=== PATIENT | male | born 1960 | race African-American/Black ===

== ENCOUNTER 2020-03-24 09:10 | Inpatient (IN) | payer MEDICARE, MEDICAID, SELFPAY ==
[2020-03-24] VITALS (11 sets, daily range): BP systolic 119–177; BP diastolic 71–89; PULSE 79–95; RESP 12–21; TEMP 35.9–36.9; O2SAT 98–100; BMI 50.3
--- NOTE | ~2020-03-24 | US_ITS ---
EXAMINATION: US carotid duplex BI DATE: 03/25/2020 11:28 INDICATION: Infarct in right temporal occipital region. TECHNIQUE: Grayscale, color Doppler, and pulsed Doppler images of the cervical carotid arteries were obtained. The degree of vessel stenosis is placed in one of the following categories: normal, <50%, 5 0-69%, >=70% but less than near-occlusion, near-occlusion, or total occlusion. Note that percent sten osis relative to normal distal artery lumen diameter is indirectly measured from velocity measurement s as described by Tristan, et al. Radiology 2003; 229:[id number]. COMPARISON: None. FINDINGS: RIGHT: The right common carotid artery (CCA) peak systolic velocity (PSV) is 86 cm/s. The right internal car otid artery (ICA) PSV is 45 cm/s. The right ICA end-diastolic velocity (EDV) is 10 cm/s. The right IC A/CCA PSV ratio is 0.5. Grayscale and color Doppler images yield an estimate of <50% diameter reducti on from plaque in the ICA. There is antegrade flow in the right vertebral artery. LEFT: The left CCA PSV is 83 cm/s. The left ICA PSV is 52 cm/s. The left ICA EDV is 16 cm/s. The left ICA/C CA PSV ratio is 0.6. Grayscale and color Doppler images yield an estimate of <50% diameter reduction from plaque in the ICA. There is antegrade flow in the left vertebral artery. IMPRESSION: 1. <50% stenosis in the right internal carotid artery. 2. <50% stenosis in the left internal carotid artery. Reviewed, dictated and finalized at location A.
--- NOTE | ~2020-03-24 | CT_ITS ---
EXAMINATION: CT brain wo con DATE: 03/24/2020 10:05 INDICATION: Unresponsive. TECHNIQUE: Computed tomography (CT) of the head was performed without intravenous contrast. The mA wa s adjusted according to patient size. Iterative reconstruction technique was employed. The dose-lengt h product was 681.00 mGy-cm. COMPARISON: None FINDINGS: There is an infarct in left thalamus. There is an infarct in right temporal occipital regio n in the expected distribution of right posterior cerebral artery. There is an infarct in the inferio r left cerebellum. There is no intracranial hemorrhage or abnormal mass lesion. The ventricles are no rmal in size. There is mild mucosal thickening in the paranasal sinuses. There is a trace right masto id effusion. The orbits are normal. IMPRESSION: 1. Age-indeterminate infarcts in the left thalamus, right temporal occipital region, and left cerebel lum. Reviewed, dictated and finalized at location A. IMPRESSION: 1. Age-indeterminate infarcts in the left thalamus, right temporal occipital re gion, and left cerebellum.
--- NOTE | ~2020-03-24 | CT_ITS ---
EXAMINATION: CTA brain carotid DATE: 03/29/2020 00:58 INDICATION: Stroke. TECHNIQUE: Computed tomographic angiography (CTA) of the head was performed without and with 100 mL O mnipaque-350 intravenous contrast. CTA of the neck was performed with intravenous contrast. Automated exposure control and iterative reconstruction technique were employed. The dose-length product was 1 926.06 mGy-cm. Maximum intensity projection and volume rendered 3D-reconstructions were created by sylvia serna technologist on a separate workstation. COMPARISON: Head CT 03/24/2020, brain MRI 03/27/2020 FINDINGS: HEAD CTA: There is an infarct in inferior left cerebellum. There is an infarct in right temporal occi pital region. There is an infarct involving the left thalamus and left cerebral peduncle. There is a small infarct in right thalamus. There is no intracranial hemorrhage or abnormal mass lesion. The horacio tricles are normal in size. The orbits are normal. There is mild mucosal thickening in the paranasal sinuses. There is an osteoma in the right ethmoid sinus. There is a small right mastoid effusion. The vertebral arteries are codominant. 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 There is no significant stenosis of basilar artery or the posterior cerebral arteries. There is mild stenosis of the intracranial internal caroti d arteries. There is no significant stenosis of the anterior or middle cerebral arteries. Anterior co mmunicating artery is normal. Right posterior communicating artery is normal. A left posterior commun icating artery is not identified. There is no aneurysm. NECK CTA: There are small pleural effusions. There is a total occlusion of cervical left vertebral ar leighton with intermittent reconstitution. There is plaque in the proximal internal carotid arteries. The re is 0% stenosis of the proximal right internal carotid artery relative to normal distal artery lume n diameter (NASCET criteria). There is 0% stenosis of the proximal left internal carotid artery relat ronald to normal distal artery lumen diameter. There is a left posterior scalp lipoma. There are no path ologically enlarged lymph nodes. There is severe cervical spondylosis. There are chronic compression fractures of T4 and T5. IMPRESSION: 1. Stable subacute infarcts involving the right temporal occipital region, left cerebellum, bilateral thalami, and left cerebral peduncle. 2. Thrombosis of left vertebral artery. 3. 0% stenosis of the proximal internal carotid arteries relative to normal distal artery lumen diame ters (NASCET criteria). Reviewed, dictated and finalized at location A. IMPRESSION: 1. Stable subacute infarcts involving the right temporal occipital region, left cerebellum, bilateral thalami, and left cerebral peduncle. 2. Thrombosis of left vertebral artery. 3. 0% stenosis of the proximal internal carotid arteries relative to normal dis ren artery lumen diameters (NASCET criteria).
--- NOTE | ~2020-03-24 | MR_ITS ---
EXAMINATION: MR brain/brain stem wo con DATE: 03/27/2020 15:01 INDICATION: Altered mental status. TECHNIQUE: Magnetic resonance imaging (MRI) of the brain and brainstem was performed without intraven ous contrast. Sequences included sagittal T1-weighted FSE and axial diffusion-weighted FS EPI. The tammy may was unable to tolerate additional imaging. Apparent diffusion coefficient (ADC) maps were creat ed. COMPARISON: Head CT 03/24/2020 FINDINGS: Motion artifact is noted. There are infarcts involving the right temporal occipital region and inferior left cerebellum. There are infarcts in the thalami, left worse than right. There is no a bnormal mass lesion. The ventricles are normal in size. The mastoid air cells are normal. IMPRESSION: 1. Infarcts involving the right temporal occipital region, inferior left cerebellum, and bilateral th jade, likely subacute. Reviewed, dictated and finalized at location A. IMPRESSION: 1. Infarcts involving the right temporal occipital region, inferior left cerebe llum, and bilateral thalami, likely subacute.
--- NOTE | ~2020-03-24 | XR_ITS ---
EXAMINATION: XR chest 1V portable DATE: 03/24/2020 09:37 INDICATION: Unresponsive. TECHNIQUE: A single frontal view of the chest was obtained. COMPARISON: None. FINDINGS: The chest demonstrates clear lungs without pneumonia, pleural effusion, or pneumothorax. Th e heart size is normal. IMPRESSION: 1. No acute cardiopulmonary disease. Reviewed, dictated and finalized at location A.
--- NOTE | ~2020-03-24 | CT_ITS ---
EXAMINATION: CT brain wo con DATE: 03/29/2020 05:04 INDICATION: Stroke. TECHNIQUE: Computed tomography (CT) of the head was performed without intravenous contrast. The mA wa s adjusted according to patient size. Iterative reconstruction technique was employed. The dose-lengt h product was 681.00 mGy-cm. COMPARISON: Head CT at 12:42 AM, brain MRI 03/27/2020 FINDINGS: There are infarcts involving the right temporal occipital region, thalami, left cerebral pe duncle, and inferior left cerebellum. There are foci in the right temporal occipital infarct that are hyperdense to andujar matter, consistent with hemorrhagic conversion. There is no abnormal mass lesion. The ventricles are normal in size. The orbits are normal. There is a small right mastoid effusion. T here is mild mucosal thickening in the paranasal sinuses. There is an osteoma in right ethmoid sinus. IMPRESSION: 1. Subacute infarct in right temporal occipital region with small foci of hemorrhagic conversion. 2. Stable subacute infarcts involving the left cerebellum, bilateral thalami, and left cerebral pedun elizabeth. Reviewed, dictated and finalized at location A. IMPRESSION: 1. Subacute infarct in right temporal occipital region with small foci of hemor rhagic conversion. 2. Stable subacute infarcts involving the left cerebellum, bilateral thalami, a nd left cerebral peduncle.
--- NOTE | 2020-03-24 09:21 | ECG_ITS ---
Measurements Intervals [place] Rate: 80 P: 41 ME: 190 QRS: -12 QRSD: 89 T: 27 QT: 364 QTc: 422 Interpretive Statements SINUS RHYTHM NORMAL ECG Electronically Signed On 03-24-2020 12:45:41 CDT by Jesse Ni D.O.
[2020-03-24 09:23] LABS: Glucose Point of Care 224 (65-105)
[2020-03-24 09:41] LABS: Alveolar/Arterial O2 Gradient 12.6 mmHg; Base Excess ABG -0.3 mEq/l (+/-2.0); Carboxyhemoglobin 0.3 % THb (0-2.0); Fractional Inspired Oxygen 21 %; HCO3 ABG 25.2 mEq/l (22.0-26.0); Methemoglobin ABG 0.3 %THb (0-1.5); Oxygen Content ABG 18.5 %vol (16.0-22.0); Oxygen Saturation ABG 96.1 % (95.0-100.0); PCO2 ABG 44.2 mmHg (35.0-45.0); PO2 ABG 84.2 mmHg (80.0-100.0); PO2 FiO2 Ratio Arterial Blood 4.01 %; Reduced Hemoglobin 4.4 %THb (0-5.0); Total Hemoglobin 13.8 g/dL (12.0-18.0); pH ABG 7.373 (7.350-7.450)
[2020-03-24 09:42] LABS: Device ROOM AIR; Modified Allen's Test Pass
--- NOTE | 2020-03-24 10:20 | PC.NURSE ---
extractions technician unable to draw blood. Lab is at bedside now.
--- NOTE | 2020-03-24 10:24 | PC.NURSE ---
Pt nurse from [facility] called and stated that she went into pts room this am and found pt unresponsive. She states that she tried sternal rub and painful stimuli and he would not respond. Pts blood sugar registered LOW so 2mg of glucagon was given. Pts blood sugar for EMS was 212 and for this RN blood sugar was 224. Per pts nurse pt is normally A&O but confused. Pt is still not responding for this RN to verbal stimuli but will for sternal rub
[2020-03-24 10:48] LABS: Basophils Percent Auto 0.2 % (0.2-1.2); Eosinophils Absolute Auto 0.1 K/mm3 (0-0.3); Hematocrit 42.7 % (42.0-52.0); Hemoglobin 14.1 g/dL (14.0-18.0); Immature Granulocyte Absolute 0.03 K/mm3 (0.00-0.031); Immature Granulocyte Percent A 0.3 % (0-0.5); Lymphocytes Absolute Auto 2.15 K/mm3 (0.9-3.2); Lymphocytes Percent Auto 22.9 % (18.3-44.2); Mean Corpuscular Hemoglobin 28.6 pg (26-34); Mean Corpuscular Volume 86.6 fl (80-100); Mean Platelet Volume 10.4 fl (7.4-10.4); Monocytes Absolute Auto 0.9 K/mm3 (0.1-0.6); Monocytes Percent Auto 9.3 % (2.6-8.5); Neutrophils Absolute Auto 6.2 K/mm3 (1.3-6.7); Neutrophils Percent Auto 66.3 % (45.5-73.1); Platelet Count Result 205 k/mm3 (150-375); Red Blood Count 4.93 M/mm3 (4.6-6.20); Red Cell Distribution Width 13.8 % (11.5-14.5); White Blood Count 9.4 K/mm3 (4.5-10.0)
[2020-03-24 10:53] LABS: Add Urine Microscopic? YES; Appearance Urine Clear (Clear); Bilirubin Urine Negative (Negative); Blood Urine Negative (Negative); Color Urine Yellow (Yellow); Glucose Urine UA 3+ mg/dL (Negative); Ketones Urine Trace mg/dL (Negative); Leukocyte Esterase Ur Negative LEU/UL (Negative); Mucus Urine Rare /lpf; Nitrate Urine Positive (Negative); Protein Urine Negative (Negative); RBC Urine 0-2 /hpf (0-2); Specific Grav Ur 1.009 (1.001-1.035); Urobilinogen Urine Negative mg/dL (<2.0)
--- NOTE | 2020-03-24 10:57 | PC.NURSE ---
Tried drawing blood on this patient and was unsuccessful
[2020-03-24 11:10] LABS: CRP < 0.5 mg/dL (<1.0)
[2020-03-24 11:10] LABS: Amphetamine Screen Urine Negative (Negative); Barbiturate Screen Urine Negative (Negative); Benzodiazepines Screen Urine Negative (Negative); Cannabinoid Screen Urine Negative (Negative); Cocaine Screen Urine Negative (Negative); Methadone Screen Urine Negative (Negative); Opiate Screen Urine Negative (Negative); Phencyclidine Screen Urine Negative (Negative)
[2020-03-24 11:16] LABS: Troponin I < 0.012 ng/mL (0.000-0.034)
--- NOTE | 2020-03-24 12:08 | ED.GENADULT ---
HPI - General Adult General Chief complaint: Unspecified Stated complaint: period of being unresponsive Time Seen by Provider: 03/24/20 09:16 Source: EMS Mode of arrival: EMS Limitations: altered mental status History of Present Illness HPI narrative: This patient is a 59 year old male with history of DM who presents from [facility] for evaluation of unresponsiveness. PAtient's mother is at bedside, and she states she was told patient was unresponsive this morning. She was told that his blood sugar was low and they were unable to get him to respond. EMS found patient's blood sugar to be 212. The long-term staff gave him glucagon 1 mg before arrival by EMS. Related Data Home Medications Medication Instructions Recorded Confirmed Multi Vitamin 1 tab-cap PO DAILY 03/24/20 03/24/20 acetaminophen [Acetaminophen Extra 1,000 mg PO Q6H PRN 03/24/20 03/24/20 Strength] amlodipine 5 mg PO DAILY 03/24/20 03/24/20 aspirin 81 mg PO DAILY 03/24/20 03/24/20 atorvastatin 20 mg PO DAILY 03/24/20 03/24/20 cholecalciferol (vitamin D3) 5,000 unit PO DAILY 03/24/20 03/24/20 divalproex 1,500 mg PO HS 03/24/20 03/24/20 duloxetine 30 mg PO BID 03/24/20 03/24/20 gabapentin 300 mg PO TID 03/24/20 03/24/20 insulin glargine 40 unit SUBCUT HS 03/24/20 03/24/20 levothyroxine 25 mcg PO DAILY 03/24/20 03/24/20 metformin 500 mg PO BID 03/24/20 03/24/20 metoprolol tartrate 25 mg PO DAILY 03/24/20 03/24/20 nicotine 1 patch TRANSDERMAL DAILY 03/24/20 03/24/20 polyethylene glycol 3350 17 g PO DAILY 03/24/20 03/24/20 risperidone 6 mg PO HS 03/24/20 03/24/20 sennosides-docusate sodium 1 tab-cap PO BID PRN 03/24/20 03/24/20 tiotropium bromide [Spiriva 1 inh INHALATION DAILY 03/24/20 03/24/20 Respimat] trihexyphenidyl 5 mg PO DAILY PRN 03/24/20 03/24/20 Allergies Allergy/AdvReac Type Severity Reaction Status Date / Time lisinopril Allergy Severe Swelling Verified 03/24/20 16:54 Review of Systems Review of Systems: ROS unobtainable: Yes unobtainable due to mental status [facility] Past Medical History Medical History (Updated 03/24/20 @ 18:38 by Fernanda Alford MD) Depression Diabetes mellitus Hyperlipemia Hypertension Seizure Surgical History Surgical History History of left below knee amputation Right above-knee amputee Family History Family History (Updated 03/24/20 @ 17:43 by Sulema Frazier NP) Father Acute myocardial infarction the age of 32 from [place] Mother No problems noted. Social History Social History Smoking status: Former smoker Alcohol intake: never Substance use: never Gender identity (if verbalized by the patient): Male Spiritual care concerns: No Exam Const: General: no acute distress; No diaphoretic Eyes: Other: bilateral pinpoint pupil Chest: Chest palpation & inspection: normal inspection of the chest Resp: Effort & Inspection: normal respiratory effort, no retractions and no use of accessory muscles Auscultation: clear to auscultation bilaterally Cardio: Rate: regular rate Rhythm: regular rhythm Heart sounds: no murmurs GI: GI Palp: Yes Soft to palpation, No Tenderness to palpation present (GI) and No Guarding due to palpation present (GI) Other: mid vertical old surgical scar Skin: General skin exam: normal color Rashes: no rashes Neuro: General: moves all extremities Extrem: Other: right BKA, left AKA Course Consultations Consultation #1: I Discussed case with Sulema Frazier who accepts patient to hospitalist service for evaluation of stroke. Patient's last known normal is unknown. He is not tPA candidate Date: 03/24/20 Time: 13:00 Vital Signs Vital signs: Vital Signs Temperature 96.7 F L 03/24/20 09:22 Pulse Rate 84 03/24/20 09:22 Respiratory Rate 12 03/24/20 09:22 Blood Pressure 160/80 H 03/24/20 09:22 Pulse Oximetry 98 03/24/20 09:22 Temperature
[2020-03-24 12:27] LABS: INR 0.9
[2020-03-24 12:28] LABS: Partial Thromboplastin Time 21.2 SECONDS (22.3-36.8)
[2020-03-24 12:30] LABS: Lactic Acid Reflex 2.2 mmol/L (0.7-2.1)
[2020-03-24 12:34] LABS: Ammonia < 9 umol/L (9-30)
[2020-03-24 12:41] LABS: Magnesium 1.8 mg/dL (1.6-2.3)
[2020-03-24 12:52] LABS: Glucose Point of Care 106 (65-105)
[2020-03-24 12:56] LABS: Ethanol < 10 mg/dL (<10)
[2020-03-24 12:58] LABS: Alanine Aminotransferase 12 U/L (4-50); Albumin Level 3.9 g/dL (3.5-5.1); Alkaline Phosphatase 103 U/L (38-126); Anion Gap 10 mmol/L (8-16); Aspartate Amino Transferase 23 U/L (17-59); Bilirubin,Total 0.5 mg/dL (0.2-1.3); Blood Urea Nitrogen 8 mg/dL (9-20); Carbon Dioxide 27 mmol/L (22-30); Chloride 101 mmol/L (98-107); Estimated CRCL calculation 131 ml/min; Estimated Glomerular Filt Rate > 60; Glucose 144 mg/dL (75-110); Sodium 138 mmol/L (137-145)
[2020-03-24] MEDS: LACTATED RINGERS 1,000 ML 999 ML IV CONT (14:01)
--- NOTE | 2020-03-24 15:10 | PC.NURSE ---
I was told that the hospitalist is enroute to see patient prior to him going up to the floor. I notified the patient's mother and I called Radha on the floor to inform her of the delay in getting the patient the floor. Staff on the floor tells me that patient is now going to room 250.
[2020-03-24 15:17] LABS: Reflex Lactic Acid Yes or No Add Lactic
--- NOTE | 2020-03-24 16:15 | PC.NURSE ---
Hospitalist done with the patient assessment, patient ready to go up to the floor at this time.
--- NOTE | 2020-03-24 16:44 | ADMGEN ---
This patient, Jason Murcia, was admitted to Medical Room 250-. Patient/family oriented to hospital policies and general routines including ID bracelet, bed and alarms, visiting hours, pain management, procedures, bathroom and other care routines, personal items, smoking policy, room service/diet, and visiting hours. Valuables list has been completed. Information on how to activate the Rapid Response Team has been discussed. Patient/Family are encouraged to report perceived risks to care and to ask questions if they do not understand what they are told or what they should do.
--- NOTE | 2020-03-24 16:45 | PC.NURSE ---
While transporting patient to room he began to void and soaked through diaper. When in new room patient was cleaned with and provided with clean linen with the help of the floor nursing informatics specialist.
[2020-03-24] MEDS: SODIUM CHLORIDE 0.9% IV 1,000 ML 125 ML IV CONT (17:11)
[2020-03-24 17:12] LABS: Lactic Acid 1.4 mmol/L (0.7-2.1)
--- NOTE | 2020-03-24 17:25 | PM.IMHP ---
H&P: HPI History of Present Illness Date/Time: 03/24/20 17:25 Chief complaint: altered mental status/possible CVA Narrative: Jason Murcia is a 59 year old male Who comes from [facility]. His mother is a durable power commercial real estate attorney any she is at the bedside. According to his mother the patient is usually awake and talkative. He is an insulin-dependent diabetic type 2. He has a left above the knee amputation and a right [id number] amputation with the right 1 being the last surgery. The patient is wheelchair-bound. He had a prosthesis for his left leg but was never able to master that when his right leg was removed. Typically he is able to move around in the wheelchair and transfer without difficulty. Normally he converses normally according to his mother. His mother was told that he was unresponsive this morning and that his blood sugars were low and they would not able to get him to respond. The EMS found the patient's blood sugar to be 212 after he was given an amp of glucagon prior to the patient being picked up by EMS. According to the mother the patient had been at [facility] last week and had a CT scan but was never able to find out what the results were. The patient typically goes to [facility] but since he was responsive the EMS felt that it was an emergent situation and needed to be taken to the nearest hospital. Head CT today was read as age-indeterminate infarcts in the left thalamus, right temporal occipital region and left cerebellum. It looks like there may be an aspirin [facility]. According to his mother he is a very brittle diabetic. The patient is rolling around in the bed and moaning but is not answering questions for me at this time. Chest x-ray was read as no acute cardiopulmonary disease. I have spent approximately 50 minutes discussing the case with his mother. Date of service 03/24/2020 Review of Systems Review of Systems: All systems reviewed & are unremarkable except as noted in HPI and below Constitutional: Constitutional: Reports as per HPI and Reports no additional constitutional complaints Eyes: Eyes: Reports as per HPI and Reports no additional eye complaints ENT: Reports system reviewed and no additional complaints, except as documented and Reports Normal hearing present Cardiovascular: Cardiovascular: Reports no additional cardiovascular complaints Respiratory: Respiratory: Reports no additional respiratory complaints and Reports no additional respiratory complaints Gastrointestinal: Gastrointestinal: Reports as per HPI and Reports no additional gastrointestinal complaints Musculoskeletal: Musculoskeletal: Reports no additional musculoskeletal complaints Integumentary/Breasts: Skin/Breast: Reports system reviewed and no additional complaints, except as docu and Reports as per HPI Neurologic: Reports system reviewed and no additional complaints, except as documented, Reports as per HPI and Reports Normal hearing present Psychiatric: Psychiatric: Reports no additional psychiatric complaints and Reports as per HPI Endocrine: Endocrine: Reports no additional endocrine complaints Hematologic/Lymphatic: Hematologic/Lymphatic: Reports no additional hematologic/lymphatic complaints Allergic/Immunologic: Allergic/Immunologic: Reports no additional allergic/immunologic complaints [facility] Past Medical History Medical History (Updated 03/24/20 @ 17:54 by Sulema Frazier NP) Depression Diabetes mellitus Hyperlipemia Hypertension Seizure Surgical History Surgical History History of left below knee amputation Right above-knee amputee Family History Family History (Updated 03/24/20 @ 17:42 by Sulema Frazier NP) Father Acute myocardial infarction the age of 32 from [place] Mother No problems noted. Social History Social History Smoking s
[2020-03-24] MEDS: ASPIRIN 300 MG SUPPOSITORY RECTAL (18:18)
[2020-03-24 18:23] LABS: Valproic Acid 70.5 ug/mL (50-120)
[2020-03-24 18:57] LABS: Glucose Point of Care 95 (65-105)
[2020-03-25] VITALS (8 sets, daily range): BP systolic 149–157; BP diastolic 63–80; PULSE 64–102; RESP 16–21; TEMP 36.3–36.8; O2SAT 98–100
[2020-03-25 00:03] LABS: Glucose Point of Care 80 (65-105)
[2020-03-25] MEDS: SODIUM CHLORIDE 0.9% IV 1,000 ML 125 ML IV CONT ×2 (01:22→09:10)
[2020-03-25 05:46] LABS: Basophils Percent Auto 0.3 % (0.2-1.2); Eosinophils Absolute Auto 0.1 K/mm3 (0-0.3); Eosinophils Percent Auto 0.8 % (0-4.4); Hematocrit 36.8 % (42.0-52.0); Hemoglobin 12.4 g/dL (14.0-18.0); Immature Granulocyte Absolute 0.02 K/mm3 (0.00-0.031); Immature Granulocyte Percent A 0.3 % (0-0.5); Lymphocytes Absolute Auto 2.14 K/mm3 (0.9-3.2); Lymphocytes Percent Auto 29.9 % (18.3-44.2); Mean Corpuscular HGB Conc 33.7 g/dl (32-36); Mean Corpuscular Hemoglobin 28.8 pg (26-34); Mean Corpuscular Volume 85.4 fl (80-100); Mean Platelet Volume 9.3 fl (7.4-10.4); Monocytes Absolute Auto 0.8 K/mm3 (0.1-0.6); Monocytes Percent Auto 10.8 % (2.6-8.5); Neutrophils Absolute Auto 4.2 K/mm3 (1.3-6.7); Neutrophils Percent Auto 57.9 % (45.5-73.1); Platelet Count Result 264 k/mm3 (150-375); Red Blood Count 4.31 M/mm3 (4.6-6.20); Red Cell Distribution Width 13.5 % (11.5-14.5); White Blood Count 7.2 K/mm3 (4.5-10.0)
[2020-03-25 05:50] LABS: Glucose Point of Care 107 (65-105)
[2020-03-25 06:02] LABS: Alanine Aminotransferase 10 U/L (4-50); Albumin Level 3.2 g/dL (3.5-5.1); Alkaline Phosphatase 87 U/L (38-126); Anion Gap 6 mmol/L (8-16); Aspartate Amino Transferase 20 U/L (17-59); Bilirubin,Total 0.4 mg/dL (0.2-1.3); Blood Urea Nitrogen 6 mg/dL (9-20); Calcium 8.3 mg/dL (8.4-10.2); Carbon Dioxide 27 mmol/L (22-30); Chloride 104 mmol/L (98-107); Estimated Glomerular Filt Rate > 60; Glucose 90 mg/dL (75-110); Potassium 3.3 mmol/L (3.4-5.0); Sodium 137 mmol/L (137-145)
--- NOTE | 2020-03-25 08:41 | PCSTNOTE ---
Speech Therapy attempted to see this pt for a Modified Barium Swallow. The pt was unconscious and not medically appropriate for evaluation this date. Consider ordering MBS when pt condition improves.
--- NOTE | 2020-03-25 11:56 | PCOTNOTE ---
Attempted OT evaluation. Nursing reports pt is in MRI for testing at this time. Will continue to attempt.
[2020-03-25 12:42] LABS: Glucose Point of Care 90 (65-105)
--- NOTE | 2020-03-25 13:23 | PCPTNOTE ---
patient deferred for today by nursing...patient is sedated...he is not following commands or directions, and nursing recommended that therapy try tomorrow
--- NOTE | 2020-03-25 14:23 | WPDNEURCNPN ---
Assessment and Plan Assessment and plan (1) Altered mental status: Code(s): R41.82 - Altered mental status, unspecified Status: Acute (2) Seizure: Code(s): R56.9 - Unspecified convulsions Status: Chronic (3) Depression: Code(s): F32.9 - Major depressive disorder, single episode, unspecified Status: Acute (4) Hypertension: Code(s): I10 - Essential (primary) hypertension Status: Chronic (5) Diabetes mellitus: Code(s): E11.9 - Type 2 diabetes mellitus without complications Status: Chronic (6) Hyperlipemia: Code(s): E78.5 - Hyperlipidemia, unspecified Status: Chronic Additional Plan likely new stroke history of underlying diabetic vascular disease and history of bilateral amputation plan is to continue the medication as such Consult date: 03/25/20 Time Seen: 14:00 HPI: Jason Murcia is a 59 year old male admitted to the hospital on transfer from the skilled nursing in addition to diagnosis of insulin dependent diabetes mellitus, bilateral [id number] amputation Cantu chair bound with history of prosthesis for his left lower extremity which he was never able to master typically is able to move around in the wheelchair and transfer without difficulties on the day of admission he was unresponsive blood sugars were low he had been at [facility] last week and even at that time CT scan of the head was negative the CT of the head today revealed left thalamus and right temporal occipital and left cerebellar infarct patient had been on aspirin but definitely he is very brittle diabetic Review of Systems Review of Systems: Narrative: review of systems are unremarkable except as documented he does carry the diagnosis of depression as well with seizure disorder [facility] Past Medical History Medical History (Updated 03/24/20 @ 18:38 by Fernanda Alford MD) Depression Diabetes mellitus Hyperlipemia Hypertension Seizure Surgical History Surgical History History of left below knee amputation Right above-knee amputee Family History Family History (Updated 03/24/20 @ 19:57 by Amanda Carlisle RN) Father Acute myocardial infarction the age of 32 from [place] Mother Osteoporosis Grandparent Diabetes mellitus Social History Social History Smoking status: Former smoker Alcohol intake: never Substance use: never Gender identity (if verbalized by the patient): Male Spiritual care concerns: No Meds Home Medications and Allergies Home Medications Medication Instructions Recorded Confirmed Type Multi Vitamin 1 tab-cap PO DAILY 03/24/20 03/24/20 History acetaminophen [Acetaminophen Extra 1,000 mg PO Q6H PRN 03/24/20 03/24/20 History Strength] amlodipine 5 mg PO DAILY 03/24/20 03/24/20 History aspirin 81 mg PO DAILY 03/24/20 03/24/20 History atorvastatin 20 mg PO DAILY 03/24/20 03/24/20 History cholecalciferol (vitamin D3) 5,000 unit PO DAILY 03/24/20 03/24/20 History divalproex 1,500 mg PO HS 03/24/20 03/24/20 History duloxetine 30 mg PO BID 03/24/20 03/24/20 History gabapentin 300 mg PO TID 03/24/20 03/24/20 History insulin glargine 40 unit SUBCUT HS 03/24/20 03/24/20 History levothyroxine 25 mcg PO DAILY 03/24/20 03/24/20 History metformin 500 mg PO BID 03/24/20 03/24/20 History metoprolol tartrate 25 mg PO DAILY 03/24/20 03/24/20 History nicotine 1 patch TRANSDERMAL DAILY 03/24/20 03/24/20 History polyethylene glycol 3350 17 g PO DAILY 03/24/20 03/24/20 History risperidone 6 mg PO HS 03/24/20 03/24/20 History sennosides-docusate sodium 1 tab-cap PO BID PRN 03/24/20 03/24/20 History tiotropium bromide [Spiriva 1 inh INHALATION DAILY 03/24/20 03/24/20 History Respimat] trihexyphenidyl 5 mg PO DAILY PRN 03/24/20 03/24/20 History Allergies Allergy/AdvReac Type Severity Reaction Status Date / Time lisinopril Allergy Severe Swelling Verified 03/24/20
--- NOTE | 2020-03-25 14:56 | P.PNIM_ITS ---
Progress Note: A&P Assessment and Plan (1) CVA (cerebral vascular accident): Qualifiers: CVA mechanism: unspecified Qualified Code(s): I63.9 - Cerebral infarction, unspecified Code(s): I63.9 - Cerebral infarction, unspecified Status: Acute Assessment and Plan: * Patient presents from intermediate due to decreased responsiveness. He is awake and moans in response to questions but not verbalizing. * CT brain showed age-indeterminate infarcts in the left thalamus, right temporal occipital region, and left cerebellum. * He recently was at [facility] and reportedly had CT and MRI at that [facility]. Requested records from [facility] and awaiting these today. * MRI has been ordered. I am told the patient has a lower extremity stent and MRI cannot be performed until records arrive from [place] regarding his stent. Carotid dopplers are normal. Echocardiogram tomorrow. * He will not be able to take oral medications in this cognitive state for now. ASA given rectally. * Neurology consulted - appreciate recommendations. 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 Hold insulin. Not eating. Adjust treatment as needed. (3) Hyperlipemia: Qualifiers: Hyperlipidemia type: unspecified Qualified Code(s): E78.5 - Hyperlipidemia, unspecified Code(s): E78.5 - Hyperlipidemia, unspecified Status: Chronic Assessment and Plan: * Will resume statin therapy once he is able to take oral medications. (4) Depression: Qualifiers: Depression Type: unspecified Qualified Code(s): F32.9 - Major depressive disorder, single episode, unspecified Code(s): F32.9 - Major depressive disorder, single episode, unspecified Status: Acute Assessment and Plan: * Continue with his home medications when able. (5) Hypertension: Qualifiers: Hypertension type: essential hypertension Qualified Code(s): I10 - E ssential (primary) hypertension Code(s): I10 - Essential (primary) hypertension Status: Chronic Assessment and Plan: * BP stable, last 149/80. Allow for permissive hypertension overnight in the setting of acute vs. subacute CVA. * Monitor BP and adjust treatment as needed. (6) Acute UTI: Code(s): N39.0 - Urinary tract infection, site not specified Status: Acute Assessment and Plan: * Urine culture growing > 100,000 E coli. Start IV ceftriaxone. Unsure if this is contributing to his mental status. Monitor urine output and vital signs. Additional Plan * Left BKA; right AKA. Subjective Date/time seen: 03/25/20 1315 Interval history: Mr. Murcia is a 59yo M admitted from the intermediate due to unresponsiveness. Patient is awake and moans in response to each question asked, but will not open his eyes or talk to me. Reportedly he is normally A&Ox3. Review of Systems Review
--- NOTE | 2020-03-25 14:56 | PM.IMPN ---
Progress Note: A&P Assessment and Plan (1) CVA (cerebral vascular accident): Qualifiers: CVA mechanism: unspecified Qualified Code(s): I63.9 - Cerebral infarction, unspecified Code(s): I63.9 - Cerebral infarction, unspecified Status: Acute Assessment and Plan: Patient presents from group home due to decreased responsiveness. He is awake and moans in response to questions but not verbalizing. CT brain showed age-indeterminate infarcts in the left thalamus, right temporal occipital region, and left cerebellum. He recently was at [facility] and reportedly had CT and MRI at that time. Requested records from [facility] and awaiting these today. MRI has been ordered. I am told the patient has a lower extremity stent and MRI cannot be performed until records arrive from [place] regarding his stent. Carotid dopplers are normal. Echocardiogram tomorrow. He will not be able to take oral medications in this cognitive state for now. ASA given rectally. Neurology consulted - appreciate recommendations. (2) Diabetes mellitus: Qualifiers: Diabetes mellitus type: type 2 Diabetes mellitus fpc insulin use: with fpc use Diabetes mellitus complication status: with other specified complication Qualified Code(s): E11.69 - Type 2 diabetes mellitus with other specified complication; Z79.4 - care home (current) use of insulin Code(s): E11.9 - Type 2 diabetes mellitus without complications Status: Chronic Assessment and Plan: Continue to monitor with q6hr accu-cheks. Hold insulin. Not eating. Adjust treatment as needed. (3) Hyperlipemia: Qualifiers: Hyperlipidemia type: unspecified Qualified Code(s): E78.5 - Hyperlipidemia, unspecified Code(s): E78.5 - Hyperlipidemia, unspecified Status: Chronic Assessment and Plan: Will resume statin therapy once he is able to take oral medications. (4) Depression: Qualifiers: Depression Type: unspecified Qualified Code(s): F32.9 - Major depressive disorder, single episode, unspecified Code(s): F32.9 - Major depressive disorder, single episode, unspecified Status: Acute Assessment and Plan: Continue with his home medications when able. (5) Hypertension: Qualifiers: Hypertension type: essential hypertension Qualified Code(s): I10 - Essential (primary) hypertension Code(s): I10 - Essential (primary) hypertension Status: Chronic Assessment and Plan: BP stable, last 149/80. Allow for permissive hypertension overnight in the setting of acute vs. subacute CVA. Monitor BP and adjust treatment as needed. (6) Acute UTI: Code(s): N39.0 - Urinary tract infection, site not specified Status: Acute Assessment and Plan: Urine culture growing > 100,000 E coli. Start IV ceftriaxone. Unsure if this is contributing to his mental status. Monitor urine output and vital signs. Additional Plan Left BKA; right AKA. Subjective Date/time seen: 03/25/20 1315 Interval history: Mr. Murcia is a 59yo M admitted from the group home due to unresponsiveness. Patient is awake and moans in response to each question asked, but will not open his eyes or talk to me. Reportedly he is normally A&Ox3. Review of Systems Review of Systems: Narrative: Twelve systems were reviewed with pertinent positives and negatives as per HPI. Exam Narrative: Exam Narrative: General: Male resting supine in bed in no acute distress. Neuro: Patient moans yes and no to many questions asked. When asked an open-ended question, he does not respond. He does squeeze my fingers with both hands when asked and follow
[2020-03-25 18:06] LABS: Glucose Point of Care 88 (65-105)
[2020-03-26] VITALS (10 sets, daily range): BP systolic 132–159; BP diastolic 69–91; PULSE 56–92; RESP 16–22; TEMP 36–36.7; O2SAT 98–100
--- NOTE | 2020-03-26 | ECHO_ITS ---
Patient Info Name: Jason Murcia Age: 59 years : 1960 Gender: Male Ht: 50 in Wt: 179 lbs BSA: 1.76 m2 HR: 74 bpm BP: 159 / 91 mmHg Heart Rhythm: Sinus Rhythm Technical Quality: Good Exam Date: 03/26/2020 2:29 PM Exam Location: [facility] Patient Status: Inpatient Admit Date: 03/24/2020 Staff Ordering Physician: Radha Heart PA-C Customer Operations Representative: Hudson Shannon, LUCRETIA, RT Attending Provider: Everardo Valencia MD Exam Type: CA echo dop bubble study w con Study Info Indications I63.219 - Cerebral infarction due to unspecified occlusion or stenosis of unspecified vertebral arteries Complete two-dimensional, color flow and Doppler transthoracic echocardiogram is performed with contrast to opacify the left ventricle and to improve the deliniation of the left ventricle endocardial borders. Complete two-dimensional, color flow and Doppler transthoracic echocardiogram is performed with agitated saline. Summary 1. Technically difficult study. 2. There is moderately increased left ventricular wall thickness. 3. Left ventricular systolic function is normal, estimated at 60-65%. 4. The left ventricular diastolic function is grade I diastolic dysfunction. 5. Unable to estimate PA systolic pressures due to poor visualization of tricuspid regurgitant jet velocity. 6. Consider transesophageal echocardiogram if clinically indicated. 7. No observed intracardiac shunt at the atrial level with injection of agitated saline with and without Valsalva. Left Ventricle Left ventricular chamber dimension is normal. Left ventricular systolic function is normal, estimated at 60-65%. There is moderately increased left ventricular wall thickness. The left ventricular diastolic function is grade I diastolic dysfunction. Technically difficult study. Right Ventricle Right ventricular chamber dimension is normal. Right ventricular systolic function is reduced. Left Atria Left atrial chamber dimension is normal. Right Atria Right atrial chamber dimension is normal. Aortic Valve The aortic valve is not well visualized. There is no aortic valve stenosis. There is no aortic valve regurgitation. Pulmonic Valve The pulmonic valve is not well visualized. Mitral Valve The mitral valve has normal leaflets. There is trace mitral valve regurgitation. Tricuspid Valve The tricuspid valve leaflets are not well visualized. Unable to estimate PA systolic pressures due to poor visualization of tricuspid regurgitant jet velocity. Pericardium/Pleural The pericardium appears not well visualized. Inferior Vena Cava Normal inferior vena cava with >50% collapse upon inspiration consistent with normal right atrial pressure, 5 mmHg. Aorta The aortic root size at the sinus of Valsalva is normal. Left Ventricular Outflow Tract Name Value Normal LVOT 2D LVOT Diameter 2.1 cm LVOT Doppler LVOT Peak Gradient 4 mmHg LVOT Mean Gradient 2 mmHg LVOT VTI 18 cm LVOT VTI/AV VTI Ratio 0.9 LVOT Stroke Volum
[2020-03-26] MEDS: SODIUM CHLORIDE 0.9% IV 1,000 ML 125 ML IV CONT ×2 (00:30→07:36)
[2020-03-26 02:54] LABS: Glucose Point of Care 137 (65-105)
[2020-03-26 05:59] LABS: Basophils Percent Auto 0.3 % (0.2-1.2); Eosinophils Absolute Auto 0.1 K/mm3 (0-0.3); Eosinophils Percent Auto 1.1 % (0-4.4); Hematocrit 37.9 % (42.0-52.0); Hemoglobin 12.5 g/dL (14.0-18.0); Immature Granulocyte Absolute 0.01 K/mm3 (0.00-0.031); Immature Granulocyte Percent A 0.2 % (0-0.5); Lymphocytes Absolute Auto 2.11 K/mm3 (0.9-3.2); Lymphocytes Percent Auto 34.1 % (18.3-44.2); Mean Corpuscular Hemoglobin 28.2 pg (26-34); Mean Corpuscular Volume 85.4 fl (80-100); Mean Platelet Volume 9.5 fl (7.4-10.4); Monocytes Absolute Auto 0.7 K/mm3 (0.1-0.6); Neutrophils Absolute Auto 3.3 K/mm3 (1.3-6.7); Neutrophils Percent Auto 53.3 % (45.5-73.1); Platelet Count Result 273 k/mm3 (150-375); Red Blood Count 4.44 M/mm3 (4.6-6.20); Red Cell Distribution Width 13.3 % (11.5-14.5); White Blood Count 6.2 K/mm3 (4.5-10.0)
[2020-03-26 06:11] LABS: Anion Gap 6 mmol/L (8-16); Blood Urea Nitrogen 5 mg/dL (9-20); Calcium 8.4 mg/dL (8.4-10.2); Carbon Dioxide 26 mmol/L (22-30); Chloride 103 mmol/L (98-107); Estimated Glomerular Filt Rate > 60; Glucose 110 mg/dL (75-110); Magnesium 1.6 mg/dL (1.6-2.3); Potassium 3.7 mmol/L (3.4-5.0); Sodium 135 mmol/L (137-145)
[2020-03-26 06:59] LABS: Glucose Point of Care 110 (65-105)
[2020-03-26] MEDS: MAGNESIUM SULF 2 GM/WATER 50ML 2 GM/50 ML BAG IVPB (09:04)
--- NOTE | 2020-03-26 09:45 | PCPTNOTE ---
Attempted PT evaluation. Pt unarousable and unable to participate. Will try again tomorrow.
--- NOTE | 2020-03-26 09:46 | PCOTNOTE ---
OT evaluation attempted this date. patient unarousable at this time. Will attempt OT evaluation at later time.
--- NOTE | 2020-03-26 10:16 | P.PNIM_ITS ---
Progress Note: A&P Assessment and Plan (1) CVA (cerebral vascular accident): Qualifiers: CVA mechanism: unspecified Qualified Code(s): I63.9 - Cerebral infarction, unspecified Code(s): I63.9 - Cerebral infarction, unspecified Status: Acute Assessment and Plan: * Patient presents from snf due to decreased responsiveness. He is awake and moans in response to questions but not verbalizing. * CT brain showed age-indeterminate infarcts in the left thalamus, right temporal occipital region, and left cerebellum. * He recently was at [facility] and reportedly had CT and MRI at that [facility]. Requested records from [facility] and awaiting these today. * MRI has been ordered. I am told the patient has a lower extremity stent and MRI cannot be performed until records arrive from [place] regarding his stent. Carotid dopplers are normal. Echocardiogram ordered. ASA given rectally. * Neurology consulted - appreciate recommendations. (2) Altered mental status: Qualifiers: Altered mental status type: unspecified Qualified Code(s): R41.82 - Altered mental status, unspecified Code(s): R41.82 - Altered mental status, unspecified Status: Acute Assessment and Plan: * At this point it difficult to discern mental status vs. cooperation. He will not speak to me, open his eyes, or take medications but he pulls blanket over his head when I try talking to him. Suspect CVA vs. UTI vs. both could be contributing. Continue antibiotics for UTI and monitor. * Appreciate further recommendations from neurology. (3) Acute UTI: Code(s): N39.0 - Urinary tract infection, site not specified Status: Acute Assessment and Plan: * Urine culture growing > 100,000 E coli. Continue ceftriaxone (day 2). Unsure if this is contributing to his mental status. Monitor urine output and vital signs. (4) Diabetes mellitus: Qualifiers: Diabetes mellitus complication status: with other specified complication Diabetes mellitus [facility] insulin use: with termite exterminator use Diabetes mellitus type: type 2 Qualified Code(s): E11.69 - Type 2 diabetes mellitus with other specified complication; Z79.4 - intermediate designer (current) use of insulin Code(s): E11.9 - Type 2 diabetes mellitus without complications Status: Chronic Assessment and Plan: * Continue to monitor with q6hr accu-cheks. Hold insulin. Not eating. Adjust treatment as needed. (5) Hyperlipemia: Qualifiers: Hyperlipidemia type: unspecified Qualified Code(s): E78.5 - Hyperlipidemia, unspecified Code(s): E78.5 - Hyperlipidemia, unspecified Status: Chronic Assessment and Plan: * Will resume statin therapy once he is able to take oral medications. (6) Depression: Qualifiers: Depression Type: unspecified Qualified Code(s): F32.9 - Major depressive disorder, single episode, unspecified Code(s): F32.9 - Major depressive disorder, single episode, unspecified Status: Acute Assessment and Plan: * Continue with his home medications when able. (7) Hypertension: Qualifiers: Hypertension type: essential hypertension Qualified Code(s): I10 - Essential (primary) hypertension Code(s): I10 - Essential (primary) hypertension Status: Chronic Assessment and P
--- NOTE | 2020-03-26 10:16 | PM.IMPN ---
Progress Note: A&P Assessment and Plan (1) CVA (cerebral vascular accident): Qualifiers: CVA mechanism: unspecified Qualified Code(s): I63.9 - Cerebral infarction, unspecified Code(s): I63.9 - Cerebral infarction, unspecified Status: Acute Assessment and Plan: Patient presents from half-way due to decreased responsiveness. He is awake and moans in response to questions but not verbalizing. CT brain showed age-indeterminate infarcts in the left thalamus, right temporal occipital region, and left cerebellum. He recently was at [facility] and reportedly had CT and MRI at that time. Requested records from [facility] and awaiting these today. MRI has been ordered. I am told the patient has a lower extremity stent and MRI cannot be performed until records arrive from [place] regarding his stent. Carotid dopplers are normal. Echocardiogram ordered. ASA given rectally. Neurology consulted - appreciate recommendations. (2) Altered mental status: Qualifiers: Altered mental status type: unspecified Qualified Code(s): R41.82 - Altered mental status, unspecified Code(s): R41.82 - Altered mental status, unspecified Status: Acute Assessment and Plan: At this point it difficult to discern mental status vs. cooperation. He will not speak to me, open his eyes, or take medications but he pulls blanket over his head when I try talking to him. Suspect CVA vs. UTI vs. both could be contributing. Continue antibiotics for UTI and monitor. Appreciate further recommendations from neurology. (3) Acute UTI: Code(s): N39.0 - Urinary tract infection, site not specified Status: Acute Assessment and Plan: Urine culture growing > 100,000 E coli. Continue ceftriaxone (day 2). Unsure if this is contributing to his mental status. Monitor urine output and vital signs. (4) Diabetes mellitus: Qualifiers: Diabetes mellitus complication status: with other specified complication Diabetes mellitus longterm insulin use: with exterminator helper termite use Diabetes mellitus type: type 2 Qualified Code(s): E11.69 - Type 2 diabetes mellitus with other specified complication; Z79.4 - prison (current) use of insulin Code(s): E11.9 - Type 2 diabetes mellitus without complications Status: Chronic Assessment and Plan: Continue to monitor with q6hr accu-cheks. Hold insulin. Not eating. Adjust treatment as needed. (5) Hyperlipemia: Qualifiers: Hyperlipidemia type: unspecified Qualified Code(s): E78.5 - Hyperlipidemia, unspecified Code(s): E78.5 - Hyperlipidemia, unspecified Status: Chronic Assessment and Plan: Will resume statin therapy once he is able to take oral medications. (6) Depression: Qualifiers: Depression Type: unspecified Qualified Code(s): F32.9 - Major depressive disorder, single episode, unspecified Code(s): F32.9 - Major depressive disorder, single episode, unspecified Status: Acute Assessment and Plan: Continue with his home medications when able. (7) Hypertension: Qualifiers: Hypertension type: essential hypertension Qualified Code(s): I10 - Essential (primary) hypertension Code(s): I10 - Essential (primary) hypertension Status: Chronic Assessment and Plan: BP stable, last 159/91. Allow for permissive hypertension in the setting of acute vs. subacute CVA. Monitor BP and adjust treatment as needed. Subjective Date/time seen: 03/26/20 0930 Interval history: Mr. Murcia is a 59yo M admitted from the half-way due to unresponsiveness. Patient is awake. W
[2020-03-26 11:20] LABS: Glucose Point of Care 130 (65-105)
--- NOTE | 2020-03-26 12:31 | WPDNEUROPN ---
Progress Note: A&P Assessment and Plan (1) Acute UTI: Code(s): N39.0 - Urinary tract infection, site not specified Status: Acute (2) Altered mental status: Code(s): R41.82 - Altered mental status, unspecified Status: Acute (3) CVA (cerebral vascular accident): Qualifiers: CVA mechanism: unspecified Qualified Code(s): I63.9 - Cerebral infarction, unspecified Code(s): I63.9 - Cerebral infarction, unspecified Status: Acute (4) Depression: Qualifiers: Depression Type: unspecified Qualified Code(s): F32.9 - Major depressive disorder, single episode, unspecified Code(s): F32.9 - Major depressive disorder, single episode, unspecified Status: Acute (5) Hypertension: Qualifiers: Hypertension type: essential hypertension Qualified Code(s): I10 - Essential (primary) hypertension Code(s): I10 - Essential (primary) hypertension Status: Chronic (6) Diabetes mellitus: Qualifiers: Diabetes mellitus complication status: with other specified complication Diabetes mellitus fci insulin use: with terminal system operator use Diabetes mellitus type: type 2 Qualified Code(s): E11.69 - Type 2 diabetes mellitus with other specified complication; Z79.4 - longterm (current) use of insulin Code(s): E11.9 - Type 2 diabetes mellitus without complications Status: Chronic (7) S/P bilateral above knee amputation: Code(s): Z89.611 - Acquired absence of right leg above knee; Z89.612 - Acquired absence of left leg above knee Status: Acute Additional Plan appropriate antibiotic is being given for his UTI once the patient is awake and of which will be easier for me to examine him however he should be put back on the aspirin and the Plavix he was on before or all the other medications Exam Const: General: comfortable and no acute distress HENMT: Other: cannot exam Eyes: Other: cannot exam Neck: Neck: supple and no JVD Resp: Effort & Inspection: normal respiratory effort Auscultation: clear to auscultation bilaterally Cardio: Rate: regular rate Rhythm: regular rhythm GI: Auscultation: normal bowel sounds Neuro: Other: patient's is resisting the examination and is difficult for me to examine him however is neck is supple and there is no sign of nuchal rigidity and Kernig sign is negative Extrem: Other: bilateral above the knee amputation Psych: Other: cannot assess as the patient is resisting the examination and just trying to be comfortable curled up on his right side and covering his had with the blanket Objective Data Vital Signs Vital Signs: Vital Signs - 24 hr 03/25/20 14:15 03/25/20 16:00 03/25/20 21:26 Temperature 36.8 C Pulse Rate 64 72 102 H Respiratory Rate 16 Blood Pressure 149/80 H Pulse Oximetry 100 03/25/20 22:00 03/26/20 00:00 03/26/20 04:00 Temperature 36.7 C Pulse Rate 73 64 64 Respiratory Rate 18 Blood Pressure 152/74 H Pulse Oximetry 98 03/26/20 06:00 03/26/20 08:00 03/26/20 09:04 Temperature 36.0 C L Pulse Rate 56 L 58 L 58 L Respiratory Rate 18 18 Blood Pressure 158/69 H Pulse Oximetry 100 100 03/26/20 12:00 Temperature Pulse Rate 61 Respiratory Rate Blood Pressure Pulse Oximetry Intake/Output Intake/Output: Intake & Output 03/23/20 03/24/20 03/25/20 03/26/20 23:59 23:59 23:59 23:59 Intake Total 1000 3550 1050 Balance 1000 3550 1050 Meds/Results Medications: Active Medications Generic Name Dose Route Start Last Admin Trade Name Freq PRN Reason Stop Dose Admin Hydralazine HCl 10 mg 03/24/20 17:57 Apresoline Hcl Inj IV PUSH Q8H PRN Blood Pressure - High Sodium Chloride 1,000 mls @ 125 mls/hr 03/24/20 14:00 03/26/20 10:05 Normal Saline Iv IV CONT 125 mls/hr .Q8H TREY Infusion Ceftriaxone Sodium/Dextrose 1 gm in 50 mls @ 100 mls/hr 03/25/20 18:00 03/25/20 19:17 Rocephin 1 Gm/D5w
[2020-03-26] MEDS: PERFLUTREN LIPID MICROSPHERES 1.5 ML VIAL DILUTED TO 10 ML TOTAL VOLUME IV PUSH (14:39)
[2020-03-26] MEDS: ASPIRIN 81 MG CHEWABLE TABLET PO (15:23)
[2020-03-26] MEDS: CLOPIDOGREL BISULFATE 75 MG TABLET PO (15:23)
[2020-03-26 16:17] LABS: Glucose Point of Care 159 (65-105)
[2020-03-26] MEDS: SODIUM CHLORIDE 0.9% IV 1,000 ML 100 ML IV CONT (17:36)
[2020-03-26] MEDS: DIVALPROEX SODIUM ER 500 MG TAB 1500 MG PO (20:47)
[2020-03-26 21:19] LABS: Glucose Point of Care 144 (65-105)
[2020-03-27] VITALS (10 sets, daily range): BP systolic 130–188; BP diastolic 68–90; PULSE 60–95; RESP 12–18; TEMP 36.2–36.7; O2SAT 99–100
[2020-03-27] MEDS: SODIUM CHLORIDE 0.9% IV 1,000 ML 100 ML IV CONT (05:52)
[2020-03-27] MEDS: hydrALAZINE HCL 20 MG/ML VIAL 10 MG IV PUSH (05:53)
[2020-03-27 06:03] LABS: Anion Gap 6 mmol/L (8-16); Blood Urea Nitrogen 7 mg/dL (9-20); Calcium 8.4 mg/dL (8.4-10.2); Carbon Dioxide 23 mmol/L (22-30); Chloride 106 mmol/L (98-107); Estimated Glomerular Filt Rate > 60; Glucose 134 mg/dL (75-110); Magnesium 1.9 mg/dL (1.6-2.3); Potassium 3.8 mmol/L (3.4-5.0); Sodium 135 mmol/L (137-145)
[2020-03-27 08:04] LABS: Glucose Point of Care 116 (65-105)
[2020-03-27 11:40] LABS: Glucose Point of Care 145 (65-105)
[2020-03-27] MEDS: ASPIRIN 81 MG CHEWABLE TABLET PO (11:46)
[2020-03-27] MEDS: CLOPIDOGREL BISULFATE 75 MG TABLET PO (11:46)
--- NOTE | 2020-03-27 12:12 | PM.IMPN ---
Progress Note: A&P Assessment and Plan (1) CVA (cerebral vascular accident): Qualifiers: CVA mechanism: unspecified Qualified Code(s): I63.9 - Cerebral infarction, unspecified Code(s): I63.9 - Cerebral infarction, unspecified Status: Acute Assessment and Plan: -----change in mental status worrisome for stroke. CT shows age indeterminate strokes in multiple areas of his brain. Did seem to have semi rhythmic movements noted on today's exam. I spoke with neurology about the plan of care. We are going to start Keppra 250 mg b.i.d. and help we can get the MRI. If we cannot get the MRI, may need to repeat the CT. Depending on what that shows, may consider TOY since he has had multiple areas of infarct with normal carotids. He is a vasculopath as he has had bilateral amputations due to PAD. Patient takes aspirin at home and Plavix was added this stay. He was able to take these medications with his lunch today. Echo reviewed (2) Altered mental status: Qualifiers: Altered mental status type: unspecified Qualified Code(s): R41.82 - Altered mental status, unspecified Code(s): R41.82 - Altered mental status, unspecified Status: Acute Assessment and Plan: -----likely new onset stroke, complicated with a UTI. Continue ceftriaxone which is sensitive. Ammonia is normal, will check TSH since he is on levothyroxine (3) Acute UTI: Code(s): N39.0 - Urinary tract infection, site not specified Status: Acute Assessment and Plan: ------Urine culture growing > 100,000 E coli. Continue ceftriaxone (day 3). 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 Continue monitoring (5) Hyperlipemia: Qualifiers: Hyperlipidemia type: unspecified Qualified Code(s): E78.5 - Hyperlipidemia, unspecified Code(s): E78.5 - Hyperlipidemia, unspecified Status: Chronic Assessment and Plan: -----patient was able to take his medications today, will restart statin (6) Depression: Qualifiers: Depression Type: unspecified Qualified Code(s): F32.9 - Major depressive disorder, single episode, unspecified Code(s): F32.9 - Major depressive disorder, single episode, unspecified Status: Acute Assessment and Plan: -----continue with duloxetine and risperidone (7) Hypertension: Qualifiers: Hypertension type: essential hypertension Qualified Code(s): I10 - Essential (primary) hypertension Code(s): I10 - Essential (primary) hypertension Status: Chronic Assessment and Plan: -----BP stable, last 130/73. Will continue with hydralazine p.r.n. and his metoprolol was added back. Additional Plan Left BKA; right AKA. Time Spent With Patient Time with patient: 25 - 35 minutes Subjective Date/time seen: 03/27/20 12:12 Interval history: Pt is a 59-year-old male here for altered mental status found to have UTI and likely new stroke. Patient was seen today and is minimally cooperative. He would not answer any of my questions or look at me directly but did squeeze my hand with his right hand. The nurse states that she was able to feed him lunch today and although he did open his eyes, he was able to be fed and did not show any signs of aspiration. Review of Systems Review of Systems: All systems reviewed & are unremarkable except as noted in HPI and below Exam Narrative: Exam Narrative: General: Generally unwell patient r
[2020-03-27] MEDS: GABAPENTIN 300 MG CAPSULE PO ×2 (13:38→20:14)
[2020-03-27] MEDS: levETIRAcetam 250 MG TABLET PO ×2 (13:38→20:14)
[2020-03-27 14:23] LABS: SARS-CoV-2 RNA PCR Negative
--- NOTE | 2020-03-27 14:59 | WPDNEUROPN ---
Progress Note: A&P Assessment and Plan (1) Acute UTI: Code(s): N39.0 - Urinary tract infection, site not specified Status: Acute (2) Altered mental status: Qualifiers: Altered mental status type: unspecified Qualified Code(s): R41.82 - Altered mental status, unspecified Code(s): R41.82 - Altered mental status, unspecified Status: Acute (3) Seizure: Code(s): R56.9 - Unspecified convulsions Status: Chronic (4) CVA (cerebral vascular accident): Qualifiers: CVA mechanism: unspecified Qualified Code(s): I63.9 - Cerebral infarction, unspecified Code(s): I63.9 - Cerebral infarction, unspecified Status: Acute (5) Depression: Qualifiers: Depression Type: unspecified Qualified Code(s): F32.9 - Major depressive disorder, single episode, unspecified Code(s): F32.9 - Major depressive disorder, single episode, unspecified Status: Acute (6) Hypertension: Qualifiers: Hypertension type: essential hypertension Qualified Code(s): I10 - Essential (primary) hypertension Code(s): I10 - Essential (primary) hypertension Status: Chronic (7) Diabetes mellitus: Qualifiers: Diabetes mellitus complication status: with other specified complication Diabetes mellitus penitentiary insulin use: with adjunct faculty for medical terminology use Diabetes mellitus type: type 2 Qualified Code(s): E11.69 - Type 2 diabetes mellitus with other specified complication; Z79.4 - skilled nursing (current) use of insulin Code(s): E11.9 - Type 2 diabetes mellitus without complications Status: Chronic (8) Hyperlipemia: Qualifiers: Hyperlipidemia type: unspecified Qualified Code(s): E78.5 - Hyperlipidemia, unspecified Code(s): E78.5 - Hyperlipidemia, unspecified Status: Chronic Additional Plan discussed with the mother in detail our handicap because of his poor cooperation in examining his eyes in particular differential diagnosis was discussed with the mom in detail she understood it well I have also discussed this with the hospitalist and we going to work on defining it further buying doing either the MRI of the brain or CT scan if he is not cooperative for the MRI and based on that further workup for the source of the stroke however he is a diabetic and by itself could be a source of stroke or as he is so much photophobic and I disease could be responsible for his eye closure or possibility of seizures for which we have started him on Keppra low-dose Review of Systems Review of Systems: All systems reviewed & are unremarkable except as noted in HPI and below Exam Const: General: comfortable and no acute distress HENMT: Other: cannot see his eyes or the ears but when left alone the patient is quite comfortable Eyes: Other: could not on repeated times see his eyes sclera or the people at all he just pushes this examiner away pushes his mother way pushes the REIMBURSEMENT SPEC away Neck: Neck: supple and no JVD Resp: Effort & Inspection: normal respiratory effort Auscultation: clear to auscultation bilaterally Cardio: Rate: regular rate Rhythm: regular rhythm GI: Auscultation: normal bowel sounds Neuro: Other: patient is a relatively more alert according to the mother that he did this week with her maybe 1 or 2 words but no verbalization otherwise a nonfocal examination except the fact that the eye examination which is the most important thing any neurological examination could not be performed either by myself or many other involved with his care Extrem: Other: 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
[2020-03-27 17:01] LABS: Glucose Point of Care 126 (65-105)
[2020-03-27] MEDS: DULoxetine HCL 30 MG CAPSULE.DR PO (17:31)
[2020-03-27] MEDS: risperiDONE 1 MG TABLET 6 MG PO (20:15)
[2020-03-27 20:51] LABS: Glucose Point of Care 177 (65-105)
[2020-03-27] MEDS: levETIRAcetam ORAL SOL 500 MG/5 ML UDC 250 MG PO (21:00)
[2020-03-28] VITALS (10 sets, daily range): BP systolic 112–128; BP diastolic 65–73; PULSE 63–83; RESP 12–18; TEMP 36.4–36.6; O2SAT 97–100
[2020-03-28 05:33] LABS: Alanine Aminotransferase 10 U/L (4-50); Albumin Level 3.4 g/dL (3.5-5.1); Alkaline Phosphatase 83 U/L (38-126); Anion Gap 10 mmol/L (8-16); Aspartate Amino Transferase 22 U/L (17-59); Bilirubin,Total 0.3 mg/dL (0.2-1.3); Blood Urea Nitrogen 9 mg/dL (9-20); CRP < 0.5 mg/dL (<1.0); Calcium 8.8 mg/dL (8.4-10.2); Carbon Dioxide 18 mmol/L (22-30); Chloride 108 mmol/L (98-107); Estimated Glomerular Filt Rate > 60; Glucose 153 mg/dL (75-110); Phosphorus 4.9 mg/dL (2.5-4.5); Potassium 4.1 mmol/L (3.4-5.0); Sodium 136 mmol/L (137-145)
[2020-03-28] MEDS: LEVOTHYROXINE SODIUM 25 MCG TABLET PO (06:09)
[2020-03-28] MEDS: GABAPENTIN 300 MG CAPSULE PO ×3 (06:09→22:36)
[2020-03-28 06:28] LABS: Basophils Percent Auto 0.5 % (0.2-1.2); Eosinophils Absolute Auto 0.1 K/mm3 (0-0.3); Eosinophils Percent Auto 1.9 % (0-4.4); Hematocrit 38.4 % (42.0-52.0); Hemoglobin 12.8 g/dL (14.0-18.0); Immature Granulocyte Absolute 0.01 K/mm3 (0.00-0.031); Immature Granulocyte Percent A 0.2 % (0-0.5); Lymphocytes Absolute Auto 1.79 K/mm3 (0.9-3.2); Lymphocytes Percent Auto 31.4 % (18.3-44.2); Mean Corpuscular HGB Conc 33.3 g/dl (32-36); Mean Corpuscular Hemoglobin 27.9 pg (26-34); Mean Corpuscular Volume 83.8 fl (80-100); Monocytes Absolute Auto 0.7 K/mm3 (0.1-0.6); Monocytes Percent Auto 12.5 % (2.6-8.5); Neutrophils Absolute Auto 3.1 K/mm3 (1.3-6.7); Neutrophils Percent Auto 53.5 % (45.5-73.1); Platelet Count Result 311 k/mm3 (150-375); Red Blood Count 4.58 M/mm3 (4.6-6.20); Red Cell Distribution Width 13.5 % (11.5-14.5); White Blood Count 5.7 K/mm3 (4.5-10.0)
--- NOTE | 2020-03-28 07:44 | PCRCNOTE ---
pt refused spiriva
[2020-03-28 07:46] LABS: Glucose Point of Care 174 (65-105)
[2020-03-28] MEDS: DULoxetine HCL 30 MG CAPSULE.DR PO ×2 (09:19→17:31)
[2020-03-28] MEDS: ASPIRIN 81 MG CHEWABLE TABLET PO (09:19)
[2020-03-28] MEDS: ATORVASTATIN 20 MG TABLET PO (09:20)
[2020-03-28] MEDS: CLOPIDOGREL BISULFATE 75 MG TABLET PO (09:20)
[2020-03-28] MEDS: levETIRAcetam ORAL SOL 500 MG/5 ML UDC 250 MG PO ×2 (09:21→22:34)
[2020-03-28] MEDS: METOPROLOL SUCCINATE EXT REL 25 MG TABCR PO (09:22)
--- NOTE | 2020-03-28 10:05 | PM.IMPN ---
Progress Note: A&P Assessment and Plan (1) CVA (cerebral vascular accident): Qualifiers: CVA mechanism: unspecified Qualified Code(s): I63.9 - Cerebral infarction, unspecified Code(s): I63.9 - Cerebral infarction, unspecified Status: Acute Assessment and Plan: -----change in mental status likely d/t multiple strokes confirmed by MRI. Will order CTA to assess for emboli. I spoke to his mother extensively about his poor prognosis and that he will likely need full care indefinitely. Will continue on Keppra as he seems more cooperative today--may have been having seizures yesterday. Depending on what head CT shows, may consider TOY since he has had multiple areas of infarct with normal carotids. Patient takes aspirin at home and Plavix was added this stay. He was able to take these medications and has not had any signs of aspiration/chokig. Echo reviewed (2) Altered mental status: Qualifiers: Altered mental status type: unspecified Qualified Code(s): R41.82 - Altered mental status, unspecified Code(s): R41.82 - Altered mental status, unspecified Status: Acute Assessment and Plan: -----likely new onset stroke, complicated with a UTI. Continue ceftriaxone which is sensitive. Ammonia and TSH normal. (3) Acute UTI: Code(s): N39.0 - Urinary tract infection, site not specified Status: Acute Assessment and Plan: ------Urine culture growing > 100,000 E coli. Continue ceftriaxone (day 4). (4) Diabetes mellitus: Qualifiers: Diabetes mellitus complication status: with other specified complication Diabetes mellitus supervisor long goods insulin use: with assisted use Diabetes mellitus type: type 2 Qualified Code(s): E11.69 - Type 2 diabetes mellitus with other specified complication; Z79.4 - terminal block assembler (current) use of insulin Code(s): E11.9 - Type 2 diabetes mellitus without complications Status: Chronic Assessment and Plan: -----last glucose 145. Continue monitoring (5) Hyperlipemia: Qualifiers: Hyperlipidemia type: unspecified Qualified Code(s): E78.5 - Hyperlipidemia, unspecified Code(s): E78.5 - Hyperlipidemia, unspecified Status: Chronic Assessment and Plan: -----continue statin therapy. (6) Depression: Qualifiers: Depression Type: unspecified Qualified Code(s): F32.9 - Major depressive disorder, single episode, unspecified Code(s): F32.9 - Major depressive disorder, single episode, unspecified Status: Acute Assessment and Plan: -----continue with duloxetine and risperidone (7) Hypertension: Qualifiers: Hypertension type: essential hypertension Qualified Code(s): I10 - Essential (primary) hypertension Code(s): I10 - Essential (primary) hypertension Status: Chronic Assessment and Plan: -----BP stable, last bp 112/65. Will continue with hydralazine p.r.n. and his metoprolol was added back. Additional Plan Left BKA; right AKA. Subjective Date/time seen: 03/28/20 10:05 Interval history: Pt is a 59 year old male here for CVA and stroke. Pt was seen today and doesn't really communicate. He is able to answer some of my questions but not all. He follows some commands. Nursing staff said he had no issues overnight. He is eating and drinking well but requires assistance. I had a long conversation wit his mom about the plan of care. Exam Narrative: Exam Narrative: General: Generally unwell patient resting in bed in no acute respiratory distress HEENT: normocephalic, no apparent meningeal signs after straightening him out Neck: supple Neuro: The patient said 'no' today when asked if he was in pain and squeezed my fingers. He did not follow any other commands or answer any other questions. He moves all his limbs spontantiously. He resisted his eyes being opened but when I open them it
[2020-03-28 11:58] LABS: Glucose Point of Care 187 (65-105)
--- NOTE | 2020-03-28 14:29 | WPDNEUROPN ---
Progress Note: A&P Assessment and Plan (1) Altered mental status: Qualifiers: Altered mental status type: unspecified Qualified Code(s): R41.82 - Altered mental status, unspecified Code(s): R41.82 - Altered mental status, unspecified Status: Acute (2) Seizure: Code(s): R56.9 - Unspecified convulsions Status: Chronic (3) CVA (cerebral vascular accident): Qualifiers: CVA mechanism: unspecified Qualified Code(s): I63.9 - Cerebral infarction, unspecified Code(s): I63.9 - Cerebral infarction, unspecified Status: Acute (4) Depression: Qualifiers: Depression Type: unspecified Qualified Code(s): F32.9 - Major depressive disorder, single episode, unspecified Code(s): F32.9 - Major depressive disorder, single episode, unspecified Status: Acute (5) Hypertension: Qualifiers: Hypertension type: essential hypertension Qualified Code(s): I10 - Essential (primary) hypertension Code(s): I10 - Essential (primary) hypertension Status: Chronic (6) Diabetes mellitus: Qualifiers: Diabetes mellitus complication status: with other specified complication Diabetes mellitus mcc insulin use: with mcc use Diabetes mellitus type: type 2 Qualified Code(s): E11.69 - Type 2 diabetes mellitus with other specified complication; Z79.4 - care home (current) use of insulin Code(s): E11.9 - Type 2 diabetes mellitus without complications Status: Chronic (7) Hyperlipemia: Qualifiers: Hyperlipidemia type: unspecified Qualified Code(s): E78.5 - Hyperlipidemia, unspecified Code(s): E78.5 - Hyperlipidemia, unspecified Status: Chronic Additional Plan I reviewed the notes of the hospitalist and her conversation with the mother and depending upon the mother's understanding 1 can certainly proceed with the cardiologic workup and the cardiology consultation but since the mother was not present I was unable to talk with her and patient himself does not offer much of a history Review of Systems Review of Systems: All systems reviewed & are unremarkable except as noted in HPI and below Exam Const: General: comfortable and no acute distress HENMT: Other: could not exam Eyes: Other: could not exam Resp: Effort & Inspection: normal respiratory effort Auscultation: clear to auscultation bilaterally Cardio: Rate: regular rate Rhythm: regular rhythm GI: Auscultation: normal bowel sounds Neuro: Other: patient is a alert and followed simple commands like moving his arms and bilateral lower extremities where the right lower extremity has above the amputation left lower extremity is below the knee amputation Extrem: Other: right AKA, left BKA Psych: Other: difficult to assess as the patient is again resentful for the examination Objective Data Vital Signs Vital Signs: Vital Signs - 24 hr 03/27/20 16:00 03/27/20 20:00 03/27/20 21:48 Temperature 36.6 C Pulse Rate 78 72 80 Respiratory Rate 18 12 Blood Pressure 131/68 Pulse Oximetry 99 99 03/28/20 00:06 03/28/20 04:00 03/28/20 06:00 Temperature 36.4 C Pulse Rate 82 72 63 Respiratory Rate 12 Blood Pressure 112/65 Pulse Oximetry 97 03/28/20 08:00 03/28/20 09:22 03/28/20 09:33 Temperature Pulse Rate 65 64 64 Respiratory Rate 16 Blood Pressure Pulse Oximetry 97 03/28/20 12:00 Temperature Pulse Rate 77 Respiratory Rate Blood Pressure Pulse Oximetry Intake/Output Intake/Output: Intake & Output 03/25/20 03/26/20 03/27/20 03/28/20 23:59 23:59 23:59 23:59 Intake Total 3550 2340 3030 250 Balance 3550 2340 3030 250 Meds/Results Medications: Active Medications Generic Name Dose Route Start Last Admin Trade Name Freq PRN Reason Stop Dose Admin Aspirin 81 mg 03/26/20 09:00 03/28/20 09:19 Aspirin Chewable PO 81 mg DAILY TREY Administration Atorvastatin C
[2020-03-28 16:45] LABS: Glucose Point of Care 129 (65-105)
[2020-03-28] MEDS: risperiDONE 1 MG TABLET 6 MG PO (22:37)
[2020-03-28 23:32] LABS: Glucose Point of Care 176 (65-105)
[2020-03-29] VITALS: PULSE 78
[2020-03-29 04:00] VITALS: BP 129/65; PULSE 65; RESP 16; TEMP 36.4; O2SAT 98
[2020-03-29 04:27] VITALS: BP 129/65; PULSE 65; RESP 16; TEMP 36.4; O2SAT 98
[2020-03-29 06:32] LABS: Glucose Point of Care 147 (65-105)
[2020-03-29 06:33] LABS: Glucose Point of Care 151 (65-105)
[2020-03-29 07:36] LABS: Glucose Point of Care 143 (65-105)
[2020-03-29 08:00] VITALS: PULSE 73
--- NOTE | 2020-03-29 08:10 | PCRCNOTE ---
pt continues to refuse kristen
[2020-03-29 08:41] VITALS: BP 108/56; PULSE 71; RESP 13; TEMP 36.7; O2SAT 96
--- NOTE | 2020-03-29 09:14 | PM.DS ---
DS: Admitting Diagnosis Admitting Diagnosis Admitting Diagnosis: altered mental status/possible CVA DS: Discharge Diagnosis Discharge Diagnosis (1) CVA (cerebral vascular accident): Qualifiers: CVA mechanism: unspecified Qualified Code(s): I63.9 - Cerebral infarction, unspecified Code(s): I63.9 - Cerebral infarction, unspecified Status: Acute Assessment and Plan: -----change in mental status likely d/t multiple strokes confirmed by MRI. CTA now shows small/tiny focal area of hemorrhagic transformation. There was also a clot seen in the left vertebral artery. I spoke to his mother extensively about his poor prognosis and that he will likely need full care indefinitely. Pt placed on keprra this stay d/t rhythmic movements which seemed to improve this. Patient takes aspirin at home and Plavix was added this stay. He was able to take these medications and has not had any signs of aspiration/chokig. Echo reviewed (2) Altered mental status: Qualifiers: Altered mental status type: unspecified Qualified Code(s): R41.82 - Altered mental status, unspecified Code(s): R41.82 - Altered mental status, unspecified Status: Acute Assessment and Plan: -----likely new onset stroke, complicated with a UTI. Continue ceftriaxone which is sensitive. Ammonia and TSH normal. (3) Acute UTI: Code(s): N39.0 - Urinary tract infection, site not specified Status: Acute Assessment and Plan: ------Urine culture growing > 100,000 E coli. Continue ceftriaxone (day 5). (4) Diabetes mellitus: Qualifiers: Diabetes mellitus complication status: with other specified complication Diabetes mellitus truck terminal manager insulin use: with truck terminal manager use Diabetes mellitus type: type 2 Qualified Code(s): E11.69 - Type 2 diabetes mellitus with other specified complication; Z79.4 - buttermaker (current) use of insulin Code(s): E11.9 - Type 2 diabetes mellitus without complications Status: Chronic Assessment and Plan: -----last glucose 145. Continue monitoring (5) Hyperlipemia: Qualifiers: Hyperlipidemia type: unspecified Qualified Code(s): E78.5 - Hyperlipidemia, unspecified Code(s): E78.5 - Hyperlipidemia, unspecified Status: Chronic Assessment and Plan: -----continue statin therapy. (6) Depression: Qualifiers: Depression Type: unspecified Qualified Code(s): F32.9 - Major depressive disorder, single episode, unspecified Code(s): F32.9 - Major depressive disorder, single episode, unspecified Status: Acute Assessment and Plan: -----continue with duloxetine and risperidone (7) Hypertension: Qualifiers: Hypertension type: essential hypertension Qualified Code(s): I10 - Essential (primary) hypertension Code(s): I10 - Essential (primary) hypertension Status: Chronic Assessment and Plan: -----BP stable, last bp 108/56. Will continue with hydralazine p.r.n. and his metoprolol was added back. DS: Summary Hospital Course Reason for hospitalization: CVA Hospital Course: Patient is a 59-year-old male who presented emergency room from his care facility for altered mental status found to have multiple CVAs and UTI. Since admission, the patient is unable to answer questions and follow most commands. He was already on aspirin on admission and was started on Plavix due to the new stroke. He was on telemetry throughout his stay which did not demonstrate any atrial arrhythmias. He underwent a brain MRI which confirmed multiple areas of infarct which is likely the cause of his mental status change. A CTA was performed which showed a small hemorrhagic transformation in the temporal/occipital region and a clot in the left vertebral artery. I called [facility] stroke team and discussed these findings and they assessed the CT and MRI as well and recommen
--- NOTE | 2020-03-29 09:20 | PC.NURSE ---
Patient transferred to [facility]. Report given to Sunday HALL. Patient transported via [facility] to [facility] at 0905. Mother notified of patient transfer.
--- NOTE | 2020-03-29 15:25 | PM.TDS ---
Transfer Discharge Sum: Prov Provider Date of admission: 03/24/20 13:57 Primary care physician: UNKNOWN,DOCTOR Admitting clinician: Everardo Valencia MD Consults: 03/24/20 13:59 Consult to Physician Routine Comment: Consulting Provider: Kayode Davis Reason for consultation: altered mental status Has provider been notified: Yes DS: Admitting Diagnosis Admitting Diagnosis Admitting Diagnosis: altered mental status/possible CVA DS: Discharge Diagnosis Discharge Diagnosis (1) CVA (cerebral vascular accident): Qualifiers: CVA mechanism: unspecified Qualified Code(s): I63.9 - Cerebral infarction, unspecified Code(s): I63.9 - Cerebral infarction, unspecified Status: Acute Assessment and Plan: -----change in mental status likely d/t multiple strokes confirmed by MRI. CTA now shows small/tiny focal area of hemorrhagic transformation. There was also a clot seen in the left vertebral artery. I spoke to his mother extensively about his poor prognosis and that he will likely need full care indefinitely. Pt placed on keprra this stay d/t rhythmic movements which seemed to improve this. Patient takes aspirin at home and Plavix was added this stay. He was able to take these medications and has not had any signs of aspiration/chokig. Echo reviewed (2) Altered mental status: Qualifiers: Altered mental status type: unspecified Qualified Code(s): R41.82 - Altered mental status, unspecified Code(s): R41.82 - Altered mental status, unspecified Status: Acute Assessment and Plan: -----likely new onset stroke, complicated with a UTI. Continue ceftriaxone which is sensitive. Ammonia and TSH normal. (3) Acute UTI: Code(s): N39.0 - Urinary tract infection, site not specified Status: Acute Assessment and Plan: ------Urine culture growing > 100,000 E coli. Continue ceftriaxone (day 5). (4) Diabetes mellitus: Qualifiers: Diabetes mellitus complication status: with other specified complication Diabetes mellitus termite control representative insulin use: with custodial use Diabetes mellitus type: type 2 Qualified Code(s): E11.69 - Type 2 diabetes mellitus with other specified complication; Z79.4 - termite treater helper (current) use of insulin Code(s): E11.9 - Type 2 diabetes mellitus without complications Status: Chronic Assessment and Plan: -----last glucose 145. Continue monitoring (5) Hyperlipemia: Qualifiers: Hyperlipidemia type: unspecified Qualified Code(s): E78.5 - Hyperlipidemia, unspecified Code(s): E78.5 - Hyperlipidemia, unspecified Status: Chronic Assessment and Plan: -----continue statin therapy. (6) Depression: Qualifiers: Depression Type: unspecified Qualified Code(s): F32.9 - Major depressive disorder, single episode, unspecified Code(s): F32.9 - Major depressive disorder, single episode, unspecified Status: Acute Assessment and Plan: -----continue with duloxetine and risperidone (7) Hypertension: Qualifiers: Hypertension type: essential hypertension Qualified Code(s): I10 - Essential (primary) hypertension Code(s): I10 - Essential (primary) hypertension Status: Chronic Assessment and Plan: -----BP stable, last bp 108/56. Will continue with hydralazine p.r.n. and his metoprolol was added back. Transfer Discharge Sum: Med Medications Active and Home Medications: Home Medications Multi Vitamin 1 tab-cap PO DAILY 03/24/20 [History Confirmed 03/24/20] acetaminophen [Acetaminophen Extra Strength] 1,000 mg PO Q6H PRN 03/24/20 [History Confirmed 03/24/20] amlodipine 5 mg PO DAILY 03/24/20 [History Confirmed 03/24/20] aspirin 81 mg PO DAILY 03/24/20 [History Confirmed 03/24/20] atorvastatin 20 mg PO DAILY 03/24/20 [History Confirmed 03/24/20] cholecalciferol (vitamin D3) 5,000 unit P
== END 2020-03-29 09:05 | disposition short-term general hospital (02) | DRG 65 ==
LOC: ANHED 11:25 → ANH2MED 16:08
PROVIDERS: Nurse Practitioner; Physician Assistant; Admitting Provider Internal Medicine; Emergency Provider General Practice; Visit Provider Physician Assistant
DX: I63.9 Cerebral infarction, unspecified (principal); N39.0 Urinary tract infection, site not specified; R41.82 Altered mental status, unspecified; B96.20 Unspecified Escherichia coli [E. coli] as the cause of diseases classified elsewhere; F32.9 Major depressive disorder, single episode, unspecified; I10 Essential (primary) hypertension; R56.9 Unspecified convulsions; E11.42 Type 2 diabetes mellitus with diabetic polyneuropathy; R29.701 NIHSS score 1; E78.5 Hyperlipidemia, unspecified; Z79.4 Long term (current) use of insulin; R40.2422 Glasgow coma scale score 9-12, at arrival to emergency department; Z79.82 Long term (current) use of aspirin; Z87.891 Personal history of nicotine dependence; Z89.512 Acquired absence of left leg below knee; Z89.611 Acquired absence of right leg above knee; Z20.828 Contact with and (suspected) exposure to other viral communicable diseases
CPT/HCPCS: 36415; 36600; 70450; 70496; 70498; 70551; 71045; 80048; 80053; 80076; 80164; 80307; 81001; 82140; 82375; 82805; 82948; 83050; 83605; 83735; 84100; 84443; 84484; 85025; 85610; 85730; 86140; 87077; 87086; 87088; 87186; 87635; 93005; 93880; 94640; 96375; 99285; A9270; C8929; C9803; J0360; J0696; J3475; J3480; J7030; J7120; Q9957; Q9967; U0003

== ENCOUNTER 2020-06-26 16:43 | Inpatient (IN) | payer MEDICARE, OTHER, SELFPAY ==
[2020-06-26] VITALS (7 sets, daily range): BP systolic 102–143; BP diastolic 41–95; PULSE 87–122; RESP 15–25; TEMP 36.7–39.6; O2SAT 93–96
--- NOTE | ~2020-06-26 | CT_ITS ---
EXAMINATION: CT brain wo con DATE: 06/26/2020 21:58 INDICATION: Altered mental status TECHNIQUE: Computed tomography (CT) of the head was performed without intravenous contrast. Sagittal and coronal reconstructions were performed. The mA was adjusted according to patient size. Iterative reconstruction technique was employed. The dose-length product was 1513.33 mGy-cm. COMPARISON: head CT dated 03/29/2020 and brain MR dated 03/27/2020 FINDINGS: Evaluation mildly limited by scattered motion artifact most prominent on the initial series and to le sser degree at the skull base on the repeated images. There are new regions of encephalomalacia at th e inferior left cerebellar hemisphere, right temporal occipital region, left franklyn and cerebral pedunc le consistent with interval evolution of the previously subacute infarcts. The previous at the right temporal occipital region has resolved. No acute intracranial hemorrhage, acute infarction or abnorma l extra axial fluid collection. Ventricles are normal and symmetric. No mass/mass effect. Mild mucosa l thickening the bilateral ethmoid and right maxillary sinuses. The orbits and mastoid air cells are normal. Intracranial calcified cerebral atherosclerosis is noted. IMPRESSION: 1. No acute intracranial process. 2. Interval evolution of a now chronic infarcts with encephalomalacia at the inferior left cerebellar hemisphere, left thalamus and left cerebral peduncle and right temporal occipital region. Reviewed, dictated and finalized at location H. FORCED STEEL PLACING SUPERVISOR IMPRESSION: 1. No acute intracranial process. 2. Interval evolution of a now chronic infarcts with encephalomalacia at the in ferior left cerebellar hemisphere, left thalamus and left cerebral peduncle and right temporal occipital region.
--- NOTE | ~2020-06-26 | XR_ITS ---
EXAMINATION: XR chest 1V portable DATE: 06/26/2020 18:28 INDICATION: Fever. Transient alteration of awareness. TECHNIQUE: frontal view of the chest was obtained. COMPARISON: Chest radiograph dated 03/24/2020 FINDINGS: New focal airspace opacity right upper lung zone. No pulmonary edema, pleural effusion or pneumothora x. Cardiomegaly. Moderate to severe right and advanced left glenohumeral osteoarthritis. Likely impla ntable property assessment monitor projecting over the mid left chest. IMPRESSION: 1. New airspace opacity in the right upper lung zone suspicious for pneumonia with differential inclu ding atelectasis. 2. Cardiomegaly. Reviewed, dictated and finalized at location H. R SYSTEM DISPATCHER IMPRESSION: 1. New airspace opacity in the right upper lung zone suspicious for pneumonia w ith differential including atelectasis. 2. Cardiomegaly.
--- NOTE | ~2020-06-26 | US_ITS ---
EXAMINATION: US renal BI DATE: 07/03/2020 12:52 INDICATION: Frequent urinary tract infections. TECHNIQUE: Multiple ultrasound grayscale images of the kidneys were obtained. COMPARISON: None. FINDINGS: The right kidney measures 12.1 x 5.7 x 5.2 cm. The left kidney measures 13.1 x 5.6 x 5.9 cm. The kidn eys demonstrate normal parenchymal echogenicity. There are cysts in the kidneys measuring up to 3.2 c m on the left. There is no hydronephrosis. The bladder is normal. IMPRESSION: 1. Normal kidney sizes. No hydronephrosis. Reviewed, dictated and finalized at location A. AGE GRINDER OPERATOR
--- NOTE | ~2020-06-26 | MR_ITS ---
EXAMINATION: MR brain/brain stem wo con DATE: 07/02/2020 13:43 INDICATION: Altered mental status. TECHNIQUE: Magnetic resonance imaging (MRI) of the brain and brainstem was performed without intraven ous contrast. Sequences included sagittal and axial T1-weighted FSE, axial diffusion-weighted FS EPI, axial T2*-weighted GRE, axial T2-weighted FLAIR Propeller, and axial T2-weighted Propeller. Apparent diffusion coefficient (ADC) maps were created. COMPARISON: Brain MRI 03/27/2020, head CT 06/26/2020 FINDINGS: There are scattered areas of nonspecific increased T2-weighted signal intensity in the cere bral white matter, which is within normal limits for the patient's age. There is an old infarct in in ferior left cerebellum. There is an old infarct in the left thalamus. There is an old infarct in righ t temporal occipital region. There is no intracranial hemorrhage, acute infarction, or abnormal intra cranial mass lesion. The ventricles are normal in size. The orbits are normal. The paranasal sinuses are clear. There are trace bilateral mastoid effusions. IMPRESSION: 1. Old infarcts involving the right temporal occipital region, left cerebellum, and left thalamus. Reviewed, dictated and finalized at location A. RAL RESOURCES FACULTY MEMBER
--- NOTE | 2020-06-26 16:45 | ECG_ITS ---
Measurements Intervals [place] Rate: 84 P: 53 GA: 201 QRS: -7 QRSD: 90 T: 24 QT: 274 QTc: 325 Interpretive Statements SINUS RHYTHM NONSPECIFIC T-WAVE ABNORMALITY- INF/HIGH LAT LEADS BORDERLINE ECG Electronically Signed On 06-27-2020 8:36:07 MICROFICHE DUPLICATOR by Jesse Ni D.O.
--- NOTE | 2020-06-26 16:51 | ED.AMS ---
HPI - Altered Mental Status General Chief Complaint: Altered Mental Status Stated Complaint: AMS Time Seen by Provider: 06/26/20 16:48 History of Present Illness HPI narrative: 59 yo male w/ h/o DM, htn, CVA, hypothyroidism brought in by EMS from residential for altered mental status. Reportedly orieted x1-2 at baseline. Today noted to be arousable only to painful stimuli. Additionally has reportedly had fevers and elevated glucose. History limited by mental status and medical condition. Related Data Home Medications Medication Instructions Recorded Confirmed Multi Vitamin 1 tab-cap PO DAILY 03/24/20 03/24/20 acetaminophen [Acetaminophen Extra 1,000 mg PO Q6H PRN 03/24/20 03/24/20 Strength] amlodipine 5 mg PO DAILY 03/24/20 03/24/20 aspirin 81 mg PO DAILY 03/24/20 03/24/20 atorvastatin 20 mg PO DAILY 03/24/20 03/24/20 cholecalciferol (vitamin D3) 5,000 unit PO DAILY 03/24/20 03/24/20 divalproex 1,500 mg PO HS 03/24/20 03/24/20 duloxetine 30 mg PO DAILY 03/24/20 03/24/20 gabapentin 300 mg PO TID 03/24/20 03/24/20 insulin glargine 40 unit SUBCUT HS 03/24/20 03/24/20 levothyroxine 25 mcg PO DAILY 03/24/20 03/24/20 metformin 500 mg PO BID 03/24/20 03/24/20 metoprolol tartrate 25 mg PO DAILY 03/24/20 03/24/20 nicotine 1 patch TRANSDERMAL DAILY 03/24/20 03/24/20 polyethylene glycol 3350 17 g PO DAILY 03/24/20 03/24/20 risperidone 6 mg PO HS 03/24/20 03/24/20 sennosides-docusate sodium 1 tab-cap PO DAILY 03/24/20 03/24/20 tiotropium bromide [Spiriva 1 inh INHALATION DAILY 03/24/20 03/24/20 Respimat] trihexyphenidyl 5 mg PO DAILY PRN 03/24/20 03/24/20 hydrochlorothiazide 50 mg PO DAILY 06/26/20 Allergies Allergy/AdvReac Type Severity Reaction Status Date / Time lisinopril Allergy Severe Swelling Verified 06/26/20 21:12 Review of Systems Review of Systems: ROS unobtainable: Yes unobtainable due to medical condition and unobtainable due to mental status PMFSH Past Medical History Medical History Depression Diabetes mellitus Hyperlipemia Hypertension Seizure Surgical History Surgical History History of left below knee amputation Right above-knee amputee S/P bilateral above knee amputation Family History Family History Father Acute myocardial infarction the age of 32 from [place] Mother Osteoporosis Grandparent Diabetes mellitus Social History Social History Smoking status: Former smoker Alcohol intake: never Substance use: never Gender identity (if verbalized by the patient): Male Spiritual care concerns: No Exam Const: General: ill appearing Nutritional Appearance: thin Limitations: altered mental status HENMT: Mouth: Yes dry mucous membranes Eyes: Pupils: Equal, round and reactive pupils present Neck: Neck: normal visual inspection Chest: Chest palpation & inspection: normal inspection of the chest Resp: Effort & Inspection: normal respiratory effort Auscultation: clear to auscultation bilaterally Cardio: Rate: tachycardic Rhythm: regular rhythm GI: GI Palp: Yes Soft to palpation Skin: General skin exam: normal color Neuro: General: moves all extremities Other: Not answering questions or following commands Extrem: Other: bilateral AKA Course Vital Signs Vital signs: Vital Signs Temperature 37.2 C 06/26/20 16:32 Pulse Rate 87 06/26/20 16:32 Respiratory Rate 15 06/26/20 16:32 Blood Pressure 136/71 06/26/20 16:32 Pulse Oximetry 96 06/26/20 16:32 Temperature 38.7 C H 06/26/20 21:40 Pulse Rate 102 H 06/26/20 21:43 Respiratory Rate 23 H 06/26/20 21:43 Blood Pressure 111/74 06/26/20 21:43 Pulse Oximetry 93 06/26/20 21:43 MDM - Altered Mental Status MDM Narrative Medical decision making
[2020-06-26 17:09] LABS: Basophils Percent Auto 0.2 % (0.2-1.2); Eosinophils Percent Auto 0.1 % (0-4.4); Hematocrit 32.7 % (42.0-52.0); Hemoglobin 10.8 g/dL (14.0-18.0); Immature Granulocyte Absolute 0.04 K/mm3 (0.00-0.031); Immature Granulocyte Percent A 0.4 % (0-0.5); Lymphocytes Absolute Auto 1.78 K/mm3 (0.9-3.2); Lymphocytes Percent Auto 16.2 % (18.3-44.2); Mean Corpuscular Hemoglobin 29.4 pg (26-34); Mean Corpuscular Volume 89.1 fl (80-100); Mean Platelet Volume 9.4 fl (7.4-10.4); Monocytes Percent Auto 9.5 % (2.6-8.5); Neutrophils Absolute Auto 8.1 K/mm3 (1.3-6.7); Neutrophils Percent Auto 73.6 % (45.5-73.1); Platelet Count Result 269 k/mm3 (150-375); Red Blood Count 3.67 M/mm3 (4.6-6.20); Red Cell Distribution Width 14.1 % (11.5-14.5)
[2020-06-26 17:18] LABS: Alanine Aminotransferase 10 U/L (4-50); Albumin Level 3.4 g/dL (3.5-5.1); Alkaline Phosphatase 86 U/L (38-126); Anion Gap 7 mmol/L (8-16); Aspartate Amino Transferase 14 U/L (17-59); Bilirubin,Total 0.5 mg/dL (0.2-1.3); Blood Urea Nitrogen 15 mg/dL (9-20); Calcium 8.7 mg/dL (8.4-10.2); Carbon Dioxide 32 mmol/L (22-30); Chloride 104 mmol/L (98-107); Estimated Glomerular Filt Rate > 60; Glucose 90 mg/dL (75-110); Potassium 3.4 mmol/L (3.4-5.0); Sodium 143 mmol/L (137-145)
[2020-06-26] MEDS: SODIUM CHLORIDE 0.9% IV 1,000 ML 999 ML IV CONT ×2 (17:20→22:12)
[2020-06-26 19:39] LABS: Add Urine Microscopic? YES; Appearance Urine Turbid (Clear); Bacteria Urine 1+ /hpf; Bilirubin Urine Negative (Negative); Blood Urine 3+ (Negative); Color Urine Yellow (Yellow); Glucose Urine UA Negative (Negative); Ketones Urine Negative (Negative); Leukocyte Esterase Ur 3+ LEU/UL (Negative); Mucus Urine Heavy /lpf; Nitrate Urine Positive (Negative); Protein Urine 2+ mg/dL (Negative); RBC Urine >75 /hpf (0-2); Specific Grav Ur 1.014 (1.001-1.035); Urobilinogen Urine Negative mg/dL (<2.0); WBC Clumps Urine Present /HPF; WBC Urine >75 /hpf
--- NOTE | 2020-06-26 21:01 | ECG_ITS ---
Measurements Intervals [place] Rate: 110 P: 64 DE: 193 QRS: 7 QRSD: 90 T: 59 QT: 354 QTc: 479 Interpretive Statements SINUS TACHYCARDIA NONSPECIFIC T-WAVE ABNORMALITY- INF/HIGH LAT LEADS ABNORMAL ECG Electronically Signed On 06-27-2020 8:40:42 COMMERCIAL LOAN ANALYST by Jesse Ni D.O.
[2020-06-26 21:09] LABS: Glucose Point of Care 185 (65-105)
[2020-06-27] VITALS (15 sets, daily range): BP systolic 99–149; BP diastolic 57–98; PULSE 73–120; RESP 14–20; TEMP 36.2–39.1; O2SAT 94–100; BMI 47.0
--- NOTE | 2020-06-27 00:45 | PM.IMHP ---
H&P: HPI History of Present Illness Date/Time: 06/27/20 00:45 Chief complaint: Sepsis, UTI Narrative: This is a 59-year-old diabetic male with known history of previous hemorrhagic CVA, seizure disorder, and hypothyroidism who was brought to the hospital yesterday secondary to acute altered mental status. The patient is known to reside at [facility]. He is known to normally be only oriented to himself at baseline and on arrival to the emergency room this evening the patient was arousable only to painful stimuli. [facility] had reported that the patient had been having fevers and elevated glucose. Routine labs that were obtained in the emergency room demonstrated a grossly abnormal urinalysis. The patient was treated with IV antibiotics and IV fluids. I requested that the patient have a brain CT scan performed in the emergency room as he recently had a hemorrhagic stroke over the summer and came in altered. CT brain returned without any acute abnormality. On my encounter with the patient tonight he is arousable but refuses to answer any of my questions. No other history is obtainable as no other family members are present at bedside. I did immediately noticed the patient is febrile to touch during my examination of the patient. Review of Systems Review of Systems: ROS unobtainable: Yes other ( Patient refuses to answer any questions at this time.) [facility] Past Medical History Medical History Depression Diabetes mellitus Hyperlipemia Hypertension Seizure Surgical History Surgical History History of left below knee amputation Right above-knee amputee S/P bilateral above knee amputation Family History Family History Father Acute myocardial infarction the age of 32 from [place] Mother Osteoporosis Grandparent Diabetes mellitus Social History Social History Smoking status: Former smoker Alcohol intake: unknown Substance use: unknown Gender identity (if verbalized by the patient): Male Spiritual care concerns: No Meds Home Medications and Allergies Home Medications Medication Instructions Recorded Confirmed Type Multi Vitamin 1 tab-cap PO DAILY 03/24/20 06/27/20 History acetaminophen [Acetaminophen Extra 1,000 mg PO Q6H PRN 03/24/20 06/27/20 History Strength] amlodipine 5 mg PO DAILY 03/24/20 06/27/20 History aspirin 81 mg PO DAILY 03/24/20 06/27/20 History atorvastatin 20 mg PO DAILY 03/24/20 06/27/20 History cholecalciferol (vitamin D3) 5,000 unit PO DAILY 03/24/20 06/27/20 History divalproex 1,500 mg PO HS 03/24/20 06/27/20 History duloxetine 30 mg PO DAILY 03/24/20 06/27/20 History gabapentin 300 mg PO TID 03/24/20 06/27/20 History insulin glargine 40 unit SUBCUT HS 03/24/20 06/27/20 History levothyroxine 25 mcg PO DAILY 03/24/20 06/27/20 History metformin 500 mg PO BID 03/24/20 06/27/20 History metoprolol tartrate 25 mg PO DAILY 03/24/20 06/27/20 History nicotine 1 patch TRANSDERMAL DAILY 03/24/20 06/27/20 History polyethylene glycol 3350 17 g PO DAILY 03/24/20 06/27/20 History risperidone 6 mg PO HS 03/24/20 06/27/20 History sennosides-docusate sodium 1 tab-cap PO DAILY 03/24/20 06/27/20 History tiotropium bromide [Spiriva 1 inh INHALATION DAILY 03/24/20 06/27/20 History Respimat] trihexyphenidyl 5 mg PO DAILY PRN 03/24/20 06/27/20 History cefdinir 300 mg PO Q12H #20 cap 06/26/20 Rx hydrochlorothiazide 50 mg PO DAILY 06/26/20 06/27/20 History Allergies Allergy/AdvReac Type Severity Reaction Status Date / Time lisinopril Allergy Severe Swelling Verified 06/27/20 02:44 Vital Signs Vital Signs - 24 hr 06/26/20 16:32 06/26/20 19:19 06/26/20 19:44 Temperature 37.2 C 39.6 C H Pulse Rate 87 122 H Respiratory Ra
[2020-06-27 01:01] LABS: Glucose Point of Care 174 (65-105)
--- NOTE | 2020-06-27 01:45 | PC.NURSE ---
This patient, Jason Murcia, was admitted to [facility] Room 328-01. Patient/family oriented to hospital policies and general routines including ID bracelet, bed and alarms, visiting hours, pain management, procedures, bathroom and other care routines, personal items, smoking policy, room service/diet, and visiting hours. Information on how to activate the Rapid Response Team has been discussed. Patient/Family are encouraged to report perceived risks to care and to ask questions if they do not understand what they are told or what they should do.
[2020-06-27 01:58] LABS: Glucose Point of Care 158 (65-105)
[2020-06-27 02:29] LABS: Lactic Acid Reflex 1.2 mmol/L (0.7-2.1)
[2020-06-27] MEDS: SODIUM CHLORIDE 0.9% IV 1,000 ML 125 ML IV CONT ×3 (04:31→22:54)
[2020-06-27] MEDS: SODIUM CHLORIDE 0.9% IV 500 ML 999 ML IV CONT (04:46)
[2020-06-27] MEDS: INSULIN ASPART (*BKC) 100 UNITS/ML SUB-Q ×3 (05:56→17:14)
[2020-06-27 06:28] LABS: Glucose Point of Care 209 (65-105)
[2020-06-27] MEDS: LEVOTHYROXINE SODIUM INJ 100 MCG/5 ML VIAL 12.5 MCG IV PUSH (06:45)
[2020-06-27 06:48] LABS: Basophils Percent Auto 0.2 % (0.2-1.2); Hematocrit 29.8 % (42.0-52.0); Hemoglobin 9.8 g/dL (14.0-18.0); Immature Granulocyte Absolute 0.06 K/mm3 (0.00-0.031); Immature Granulocyte Percent A 0.6 % (0-0.5); Lymphocytes Absolute Auto 0.55 K/mm3 (0.9-3.2); Lymphocytes Percent Auto 5.8 % (18.3-44.2); Mean Corpuscular HGB Conc 32.9 g/dl (32-36); Mean Corpuscular Hemoglobin 29.3 pg (26-34); Mean Corpuscular Volume 89.2 fl (80-100); Mean Platelet Volume 9.4 fl (7.4-10.4); Monocytes Absolute Auto 0.5 K/mm3 (0.1-0.6); Monocytes Percent Auto 4.8 % (2.6-8.5); Neutrophils Absolute Auto 8.4 K/mm3 (1.3-6.7); Neutrophils Percent Auto 88.6 % (45.5-73.1); Platelet Count Result 231 k/mm3 (150-375); Red Blood Count 3.34 M/mm3 (4.6-6.20); Red Cell Distribution Width 14.1 % (11.5-14.5); White Blood Count 9.5 K/mm3 (4.5-10.0)
[2020-06-27 07:44] LABS: Anion Gap 8 mmol/L (8-16); Blood Urea Nitrogen 12 mg/dL (9-20); Calcium 7.7 mg/dL (8.4-10.2); Carbon Dioxide 25 mmol/L (22-30); Chloride 107 mmol/L (98-107); Estimated Glomerular Filt Rate > 60; Glucose 229 mg/dL (75-110); Magnesium 1.2 mg/dL (1.6-2.3); Potassium 3.5 mmol/L (3.4-5.0); Sodium 140 mmol/L (137-145)
[2020-06-27] MEDS: MAGNESIUM SULF 4 GM/WATER100ML 4 GM/100 ML BAG IVPB (11:17)
[2020-06-27 11:50] LABS: Glucose Point of Care 214 (65-105)
--- NOTE | 2020-06-27 13:08 | PM.IMPN ---
Progress Note: A&P Assessment and Plan (1) UTI (urinary tract infection): Qualifiers: Urinary tract infection type: acute cystitis Code(s): N39.0 - Urinary tract infection, site not specified Status: Acute Assessment and Plan: Continue empiric IV rocephin with urine and blood cultures pending. (2) Sepsis: Qualifiers: Sepsis acute organ dysfunction status: without acute organ dysfunction Sepsis type: sepsis due to unspecified organism Qualified Code(s): A41.9 - Sepsis, unspecified organism Code(s): A41.9 - Sepsis, unspecified organism Status: Acute Assessment and Plan: Evident by fever, tachycardia, tachypnea. Source of sepsis appears to be urinary at this time. Continue antibiotics and monitor vital signs, urine output. (3) Altered mental status: Qualifiers: Altered mental status type: unspecified Qualified Code(s): R41.82 - Altered mental status, unspecified Code(s): R41.82 - Altered mental status, unspecified Status: Acute Assessment and Plan: NPO overnight. Aspiration precautions.Brain CT is unremarkable for acute pathology. Is unknown exactly with the patient's normal baseline is, how much is AMS vs poor cooperation. Acute altered mental status may be secondary to sepsis and UTI superimposed on deficits from chronic CVA. (4) Suspected 2019 novel coronavirus infection: Code(s): Z20.828 - Contact with and (suspected) exposure to other viral communicable diseases Status: Ruled-out Assessment and Plan: Ruled out. COVID negative; discontinue isolation. (5) Chronic anemia: Code(s): D64.9 - Anemia, unspecified Status: Chronic Assessment and Plan: Suspect anemia of chronic disease. No evidence of acute bleeding. Monitor H&H, transfuse p.r.n. (6) Seizure disorder: Code(s): G40.909 - Epilepsy, unspecified, not intractable, without status epilepticus Status: Chronic Assessment and Plan: Continue divalproex IV. (7) Hypothyroidism: Code(s): E03.9 - Hypothyroidism, unspecified Status: Chronic Assessment and Plan: Continue levothyroxine IV. (8) Hypertension: Qualifiers: Hypertension type: essential hypertension Qualified Code(s): I10 - Essential (primary) hypertension Code(s): I10 - Essential (primary) hypertension Status: Chronic Assessment and Plan: Blood pressures have been variable. Continue holding home antihypertensives, monitor blood pressure closely and resume when appropriate. (9) Diabetes mellitus: Qualifiers: Diabetes mellitus complication status: with other specified complication Diabetes mellitus senior care insulin use: with intermediate designer use Diabetes mellitus type: type 2 Qualified Code(s): E11.69 - Type 2 diabetes mellitus with other specified complication; Z79.4 - supervisor intermediates (current) use of insulin Code(s): E11.9 - Type 2 diabetes mellitus without complications Status: Chronic Assessment and Plan: Monitor with Accu-Cheks, sliding scale insulin coverage, hypoglycemia protocol. Resume long-acting glargine insulin when the patient is eating again. (10) Hyperlipemia: Qualifiers: Hyperlipidemia type: unspecified Qualified Code(s): E78.5 - Hyperlipidemia, unspecified Code(s): E78.5 - Hyperlipidemia, unspecified Status: Chronic Assessment and Plan: Resume atorvastatin when possible. Subjective Date/time seen:
[2020-06-27 14:03] LABS: SARS-CoV-2 RNA PCR Negative
[2020-06-27 17:24] LABS: Glucose Point of Care 207 (65-105)
[2020-06-28 00:39] LABS: Glucose Point of Care 171 (65-105)
[2020-06-28 04:00] VITALS: BP 139/76; PULSE 80; RESP 12; TEMP 36.6; O2SAT 98
[2020-06-28] MEDS: LEVOTHYROXINE SODIUM INJ 100 MCG/5 ML VIAL 12.5 MCG IV PUSH (06:22)
[2020-06-28 06:48] LABS: Basophils Percent Auto 0.2 % (0.2-1.2); Eosinophils Percent Auto 0.3 % (0-4.4); Hematocrit 26.9 % (42.0-52.0); Hemoglobin 8.9 g/dL (14.0-18.0); Immature Granulocyte Absolute 0.04 K/mm3 (0.00-0.031); Immature Granulocyte Percent A 0.6 % (0-0.5); Lymphocytes Absolute Auto 0.84 K/mm3 (0.9-3.2); Lymphocytes Percent Auto 13.6 % (18.3-44.2); Mean Corpuscular HGB Conc 33.1 g/dl (32-36); Mean Corpuscular Hemoglobin 29.1 pg (26-34); Mean Corpuscular Volume 87.9 fl (80-100); Mean Platelet Volume 9.3 fl (7.4-10.4); Monocytes Absolute Auto 0.5 K/mm3 (0.1-0.6); Monocytes Percent Auto 8.8 % (2.6-8.5); Neutrophils Absolute Auto 4.7 K/mm3 (1.3-6.7); Neutrophils Percent Auto 76.5 % (45.5-73.1); Platelet Count Result 218 k/mm3 (150-375); Red Blood Count 3.06 M/mm3 (4.6-6.20); White Blood Count 6.2 K/mm3 (4.5-10.0)
[2020-06-28 06:57] LABS: Alanine Aminotransferase 13 U/L (4-50); Albumin Level 2.7 g/dL (3.5-5.1); Alkaline Phosphatase 68 U/L (38-126); Anion Gap 5 mmol/L (8-16); Aspartate Amino Transferase 28 U/L (17-59); Bilirubin,Total 0.3 mg/dL (0.2-1.3); Blood Urea Nitrogen 9 mg/dL (9-20); Calcium 8.1 mg/dL (8.4-10.2); Carbon Dioxide 28 mmol/L (22-30); Chloride 110 mmol/L (98-107); Estimated Glomerular Filt Rate > 60; Glucose 168 mg/dL (75-110); Magnesium 2.2 mg/dL (1.6-2.3); Potassium 3.3 mmol/L (3.4-5.0); Sodium 143 mmol/L (137-145)
[2020-06-28 08:07] LABS: Glucose Point of Care 164 (65-105)
[2020-06-28] MEDS: SODIUM CHLORIDE 0.9% IV 1,000 ML 125 ML IV CONT (09:03)
[2020-06-28] MEDS: SODIUM CHLORIDE 0.9% IV 1,000 ML 100 ML IV CONT ×2 (10:29→23:24)
--- NOTE | 2020-06-28 11:16 | PM.IMPN ---
Progress Note: A&P Assessment and Plan (1) UTI (urinary tract infection): Qualifiers: Urinary tract infection type: acute cystitis Hematuria presence: with hematuria Qualified Code(s): N30.01 - Acute cystitis with hematuria Code(s): N39.0 - Urinary tract infection, site not specified Status: Acute Assessment and Plan: Urine culture growing E coli sensitive to Rocephin, blood cultures pending with no growth to date. Continue IV Rocephin (day 3). (2) Sepsis: Qualifiers: Sepsis acute organ dysfunction status: without acute organ dysfunction Sepsis type: sepsis due to unspecified organism Qualified Code(s): A41.9 - Sepsis, unspecified organism Code(s): A41.9 - Sepsis, unspecified organism Status: Acute Assessment and Plan: Evident by fever, tachycardia, tachypnea; improved. Source of sepsis appears to be urinary at this time. Continue antibiotics and monitor vital signs, urine output. (3) Altered mental status: Qualifiers: Altered mental status type: unspecified Qualified Code(s): R41.82 - Altered mental status, unspecified Code(s): R41.82 - Altered mental status, unspecified Status: Acute Assessment and Plan: Improving, seems more his baseline. Brain CT is unremarkable for acute pathology. Suspected secondary to sepsis and UTI superimposed on deficits from chronic CVA. (4) CVA (cerebral vascular accident): Qualifiers: CVA mechanism: unspecified Qualified Code(s): I63.9 - Cerebral infarction, unspecified Code(s): I63.9 - Cerebral infarction, unspecified Status: Acute Assessment and Plan: Chronic CVAs recently from March 2020. Continue ASA. (5) Chronic anemia: Code(s): D64.9 - Anemia, unspecified Status: Chronic Assessment and Plan: Suspect anemia of chronic disease. No evidence of acute bleeding. Monitor H&H, transfuse p.r.n. (6) Seizure disorder: Code(s): G40.909 - Epilepsy, unspecified, not intractable, without status epilepticus Status: Chronic Assessment and Plan: Continue divalproex IV. (7) Hypothyroidism: Qualifiers: Hypothyroidism type: unspecified Qualified Code(s): E03.9 - Hypothyroidism, unspecified Code(s): E03.9 - Hypothyroidism, unspecified Status: Chronic Assessment and Plan: Continue levothyroxine IV. (8) Hypertension: Qualifiers: Hypertension type: essential hypertension Qualified Code(s): I10 - Essential (primary) hypertension Code(s): I10 - Essential (primary) hypertension Status: Chronic Assessment and Plan: Blood pressures have been variable, last 139/76. Resume home metoprolol, hold hydrochlorothiazide to avoid dehydration since he has still not eaten, monitor BP and adjust treatment as needed. (9) Diabetes mellitus: Qualifiers: Diabetes mellitus complication status: with other specified complication Diabetes mellitus predatory animal exterminator insulin use: with predatory animal exterminator use Diabetes mellitus type: type 2 Qualified Code(s): E11.69 - Type 2 diabetes mellitus with other specified complication; Z79.4 - assisted (current) use of insulin Code(s): E11.9 - Type 2 diabetes mellitus without complications Status: Chronic Assessment and Plan: Monitor with Accu-Cheks, sliding scale insulin coverage, hypoglycemia protocol. Resume long-acting glargine insulin when the patient is eating again. (10) Hyperlipemia: Qualifiers: Hyperlipidemia type: unspecified
[2020-06-28 12:08] LABS: Glucose Point of Care 216 (65-105)
[2020-06-28] MEDS: INSULIN ASPART (*BKC) 100 UNITS/ML SUB-Q ×2 (12:17→17:18)
[2020-06-28] MEDS: CHOLECALCIFEROL 1,000 UNITS TABLET 5000 UNITS PO (13:12)
[2020-06-28] MEDS: ATORVASTATIN 40 MG TABLET PO (13:12)
[2020-06-28] MEDS: ASPIRIN 81 MG CHEWABLE TABLET PO (13:12)
[2020-06-28] MEDS: DULoxetine HCL 30 MG CAPSULE.DR PO (13:13)
[2020-06-28 13:14] VITALS: PULSE 76
[2020-06-28] MEDS: METOPROLOL TARTRATE 25 MG TABLET PO (13:14)
[2020-06-28 14:00] VITALS: BP 180/84; PULSE 94; RESP 18; TEMP 36.7; O2SAT 100
[2020-06-28 18:09] LABS: Glucose Point of Care 221 (65-105)
[2020-06-28 20:00] VITALS: PULSE 76; RESP 20; O2SAT 99
[2020-06-28] MEDS: INSULIN GLARGINE (*BKC) 100 UNITS/ML 20 UNITS SUB-Q (21:13)
[2020-06-28 22:00] VITALS: BP 148/82; PULSE 76; RESP 20; TEMP 37.2; O2SAT 99
[2020-06-28 22:00] LABS: Glucose Point of Care 204 (65-105)
[2020-06-29 02:00] VITALS: BP 129/58; PULSE 71; RESP 18; TEMP 36.3; O2SAT 96
[2020-06-29 06:00] VITALS: BP 149/74; PULSE 72; RESP 20; TEMP 36.4; O2SAT 98
[2020-06-29] MEDS: LEVOTHYROXINE SODIUM INJ 100 MCG/5 ML VIAL 12.5 MCG IV PUSH (06:08)
[2020-06-29 06:35] LABS: Basophils Percent Auto 0.3 % (0.2-1.2); Eosinophils Percent Auto 1.1 % (0-4.4); Hematocrit 26.3 % (42.0-52.0); Hemoglobin 8.8 g/dL (14.0-18.0); Immature Granulocyte Absolute 0.01 K/mm3 (0.00-0.031); Immature Granulocyte Percent A 0.3 % (0-0.5); Lymphocytes Absolute Auto 0.95 K/mm3 (0.9-3.2); Lymphocytes Percent Auto 25.5 % (18.3-44.2); Mean Corpuscular HGB Conc 33.5 g/dl (32-36); Mean Corpuscular Hemoglobin 28.7 pg (26-34); Mean Corpuscular Volume 85.7 fl (80-100); Mean Platelet Volume 9.8 fl (7.4-10.4); Monocytes Absolute Auto 0.4 K/mm3 (0.1-0.6); Monocytes Percent Auto 11.3 % (2.6-8.5); Neutrophils Absolute Auto 2.3 K/mm3 (1.3-6.7); Neutrophils Percent Auto 61.5 % (45.5-73.1); Platelet Count Result 216 k/mm3 (150-375); Red Blood Count 3.07 M/mm3 (4.6-6.20); Red Cell Distribution Width 13.9 % (11.5-14.5); White Blood Count 3.7 K/mm3 (4.5-10.0)
[2020-06-29 06:47] LABS: Alanine Aminotransferase 15 U/L (4-50); Albumin Level 2.7 g/dL (3.5-5.1); Alkaline Phosphatase 65 U/L (38-126); Anion Gap 5 mmol/L (8-16); Aspartate Amino Transferase 26 U/L (17-59); Bilirubin,Total 0.3 mg/dL (0.2-1.3); Blood Urea Nitrogen 6 mg/dL (9-20); Calcium 8.4 mg/dL (8.4-10.2); Carbon Dioxide 27 mmol/L (22-30); Chloride 106 mmol/L (98-107); Estimated Glomerular Filt Rate > 60; Glucose 180 mg/dL (75-110); Magnesium 1.8 mg/dL (1.6-2.3); Potassium 3.6 mmol/L (3.4-5.0); Sodium 138 mmol/L (137-145)
[2020-06-29 06:54] LABS: Glucose Point of Care 192 (65-105)
[2020-06-29 07:15] LABS: Atypical Lymphocytes Present; Burr Cells 1+ (NORMAL); Platelet Estimate Adequate (Adequate)
[2020-06-29 07:16] LABS: Hypochromasia 1+ (NORMAL)
[2020-06-29 08:00] VITALS: PULSE 72; RESP 20; O2SAT 98
[2020-06-29] MEDS: ASPIRIN 81 MG CHEWABLE TABLET PO (08:04)
[2020-06-29] MEDS: DULoxetine HCL 30 MG CAPSULE.DR PO (08:04)
[2020-06-29] MEDS: CHOLECALCIFEROL 1,000 UNITS TABLET 5000 UNITS PO (08:04)
[2020-06-29] MEDS: ATORVASTATIN 40 MG TABLET PO (08:04)
[2020-06-29 08:05] VITALS: PULSE 72
[2020-06-29] MEDS: METOPROLOL TARTRATE 25 MG TABLET PO (08:05)
[2020-06-29 08:46] LABS: Glucose Point of Care 199 (65-105)
[2020-06-29] MEDS: SODIUM CHLORIDE 0.9% IV 1,000 ML 100 ML IV CONT (10:04)
[2020-06-29 11:17] LABS: Glucose Point of Care 261 (65-105)
[2020-06-29] MEDS: INSULIN ASPART (*BKC) 100 UNITS/ML SUB-Q ×2 (12:33→17:11)
[2020-06-29 14:00] VITALS: BP 142/66; PULSE 65; RESP 18; TEMP 36.7; O2SAT 98
--- NOTE | 2020-06-29 14:40 | PM.IMPN ---
Progress Note: A&P Assessment and Plan (1) UTI (urinary tract infection): Qualifiers: Hematuria presence: with hematuria Urinary tract infection type: acute cystitis Qualified Code(s): N30.01 - Acute cystitis with hematuria Code(s): N39.0 - Urinary tract infection, site not specified Status: Acute Assessment and Plan: Urine culture growing E coli sensitive to Rocephin, blood cultures pending with no growth to date. Continue IV Rocephin (day 4). (2) Sepsis: Qualifiers: Sepsis acute organ dysfunction status: without acute organ dysfunction Sepsis type: sepsis due to unspecified organism Qualified Code(s): A41.9 - Sepsis, unspecified organism Code(s): A41.9 - Sepsis, unspecified organism Status: Acute Assessment and Plan: Evident by fever, tachycardia, tachypnea; improved. Source of sepsis appears to be urinary at this time. Continue antibiotics and monitor vital signs, urine output. (3) Altered mental status: Qualifiers: Altered mental status type: unspecified Qualified Code(s): R41.82 - Altered mental status, unspecified Code(s): R41.82 - Altered mental status, unspecified Status: Acute Assessment and Plan: Improving, seems more his baseline although he is sleepy. Brain CT is unremarkable for acute pathology. Suspected secondary to sepsis and UTI superimposed on deficits from chronic CVA. (4) CVA (cerebral vascular accident): Qualifiers: CVA mechanism: unspecified Qualified Code(s): I63.9 - Cerebral infarction, unspecified Code(s): I63.9 - Cerebral infarction, unspecified Status: Acute Assessment and Plan: Chronic CVAs recently from March 2020. Continue ASA. (5) Chronic anemia: Code(s): D64.9 - Anemia, unspecified Status: Chronic Assessment and Plan: Suspect anemia of chronic disease. No evidence of acute bleeding. Monitor H&H, transfuse p.r.n. (6) Seizure disorder: Code(s): G40.909 - Epilepsy, unspecified, not intractable, without status epilepticus Status: Chronic Assessment and Plan: Continue divalproex IV. (7) Hypothyroidism: Qualifiers: Hypothyroidism type: unspecified Qualified Code(s): E03.9 - Hypothyroidism, unspecified Code(s): E03.9 - Hypothyroidism, unspecified Status: Chronic Assessment and Plan: Continue levothyroxine IV. (8) Hypertension: Qualifiers: Hypertension type: essential hypertension Qualified Code(s): I10 - Essential (primary) hypertension Code(s): I10 - Essential (primary) hypertension Status: Chronic Assessment and Plan: Blood pressures have been variable, last 142/66. Resume home metoprolol, hold hydrochlorothiazide to avoid dehydration since he is not eating much, monitor BP and adjust treatment as needed. (9) Diabetes mellitus: Qualifiers: Diabetes mellitus complication status: with other specified complication Diabetes mellitus moth exterminator insulin use: with detention use Diabetes mellitus type: type 2 Qualified Code(s): E11.69 - Type 2 diabetes mellitus with other specified complication; Z79.4 - jail (current) use of insulin Code(s): E11.9 - Type 2 diabetes mellitus without complications Status: Chronic Assessment and Plan: Resume his lantus at a lower dose; Monitor with Accu-Cheks, sliding scale insulin coverage, hypoglycemia protocol. (10) Hyperlipemia: Qualifiers: Hyperlipidemia type: unspecified Qualified Code(
[2020-06-29 17:08] LABS: Glucose Point of Care 214 (65-105)
[2020-06-29 19:25] LABS: SARS-CoV-2 RNA PCR Negative
[2020-06-29] MEDS: SODIUM CHLORIDE 0.9% IV 1,000 ML 70 ML IV CONT (21:30)
[2020-06-29 22:00] VITALS: BP 165/73; PULSE 75; RESP 18; TEMP 36.9; O2SAT 95
[2020-06-29] MEDS: INSULIN GLARGINE (*BKC) 100 UNITS/ML 30 UNITS SUB-Q (22:37)
[2020-06-29 22:38] LABS: Glucose Point of Care 187 (65-105)
[2020-06-30 06:00] VITALS: BP 131/75; PULSE 59; RESP 20; TEMP 36.6; O2SAT 97
[2020-06-30] MEDS: LEVOTHYROXINE SODIUM INJ 100 MCG/5 ML VIAL 12.5 MCG IV PUSH (06:03)
[2020-06-30 08:00] VITALS: PULSE 64; RESP 20; O2SAT 97
[2020-06-30] MEDS: CHOLECALCIFEROL 1,000 UNITS TABLET 5000 UNITS PO (08:51)
[2020-06-30] MEDS: polyethylene glycoL 3350 17 GM POWD.PACK PO (08:51)
[2020-06-30 08:52] VITALS: PULSE 64
[2020-06-30] MEDS: DULoxetine HCL 30 MG CAPSULE.DR PO (08:52)
[2020-06-30] MEDS: METOPROLOL TARTRATE 25 MG TABLET PO (08:52)
[2020-06-30] MEDS: ASPIRIN 81 MG CHEWABLE TABLET PO (08:53)
[2020-06-30] MEDS: ATORVASTATIN 40 MG TABLET PO (08:53)
[2020-06-30 10:20] LABS: Glucose Point of Care 155 (65-105)
[2020-06-30 12:35] LABS: Glucose Point of Care 154 (65-105)
--- NOTE | 2020-06-30 12:53 | PM.IMPN ---
Progress Note: A&P Assessment and Plan (1) UTI (urinary tract infection): Qualifiers: Hematuria presence: with hematuria Urinary tract infection type: acute cystitis Qualified Code(s): N30.01 - Acute cystitis with hematuria Code(s): N39.0 - Urinary tract infection, site not specified Status: Acute Assessment and Plan: Urine culture growing E coli sensitive to Rocephin, blood cultures pending with no growth to date. Continue IV Rocephin (day 5). (2) Sepsis: Qualifiers: Sepsis acute organ dysfunction status: without acute organ dysfunction Sepsis type: sepsis due to unspecified organism Qualified Code(s): A41.9 - Sepsis, unspecified organism Code(s): A41.9 - Sepsis, unspecified organism Status: Acute Assessment and Plan: Evident by fever, tachycardia, tachypnea; improved. Source of sepsis appears to be urinary at this time. Continue antibiotics and monitor vital signs, urine output. (3) Altered mental status: Qualifiers: Altered mental status type: unspecified Qualified Code(s): R41.82 - Altered mental status, unspecified Code(s): R41.82 - Altered mental status, unspecified Status: Acute Assessment and Plan: Talkative two days ago, now more lethargic again. Brain CT is unremarkable for acute pathology. Suspected secondary to sepsis and UTI superimposed on deficits from chronic CVA. (4) CVA (cerebral vascular accident): Qualifiers: CVA mechanism: unspecified Qualified Code(s): I63.9 - Cerebral infarction, unspecified Code(s): I63.9 - Cerebral infarction, unspecified Status: Acute Assessment and Plan: Chronic CVAs recently from March 2020. Continue ASA. (5) Chronic anemia: Code(s): D64.9 - Anemia, unspecified Status: Chronic Assessment and Plan: Suspect anemia of chronic disease. No evidence of acute bleeding. Monitor H&H, transfuse p.r.n. (6) Seizure disorder: Code(s): G40.909 - Epilepsy, unspecified, not intractable, without status epilepticus Status: Chronic Assessment and Plan: Continue divalproex IV. (7) Hypothyroidism: Qualifiers: Hypothyroidism type: unspecified Qualified Code(s): E03.9 - Hypothyroidism, unspecified Code(s): E03.9 - Hypothyroidism, unspecified Status: Chronic Assessment and Plan: Continue levothyroxine IV. (8) Hypertension: Qualifiers: Hypertension type: essential hypertension Qualified Code(s): I10 - Essential (primary) hypertension Code(s): I10 - Essential (primary) hypertension Status: Chronic Assessment and Plan: Blood pressures have been variable, last 131/49 Continue home metoprolol, hold hydrochlorothiazide to avoid dehydration since he is not eating much, monitor BP and adjust treatment as needed. (9) Diabetes mellitus: Qualifiers: Diabetes mellitus complication status: with other specified complication Diabetes mellitus vermin exterminator insulin use: with vermin exterminator use Diabetes mellitus type: type 2 Qualified Code(s): E11.69 - Type 2 diabetes mellitus with other specified complication; Z79.4 - exterminator termite (current) use of insulin Code(s): E11.9 - Type 2 diabetes mellitus without complications Status: Chronic Assessment and Plan: Continue his lantus at a lower dose; Monitor with Accu-Cheks, sliding scale insulin coverage, hypoglycemia protocol. (10) Hyperlipemia: Qualifiers: Hyperlipidemia type: unspecified Qualified Code(s): E7
[2020-06-30 14:00] VITALS: BP 131/49; PULSE 65; RESP 18; TEMP 36.8; O2SAT 99
[2020-06-30] MEDS: SODIUM CHLORIDE 0.9% IV 1,000 ML 70 ML IV CONT (17:23)
[2020-06-30 18:42] LABS: Glucose Point of Care 144 (65-105)
[2020-06-30 21:18] LABS: Glucose Point of Care 142 (65-105)
[2020-06-30] MEDS: INSULIN GLARGINE (*BKC) 100 UNITS/ML 30 UNITS SUB-Q (21:19)
[2020-06-30 22:00] VITALS: BP 129/72; PULSE 58; RESP 20; TEMP 36.9; O2SAT 97
[2020-07-01 06:00] VITALS: BP 128/80; PULSE 68; RESP 20; TEMP 36.3; O2SAT 98
[2020-07-01] MEDS: LEVOTHYROXINE SODIUM INJ 100 MCG/5 ML VIAL 12.5 MCG IV PUSH (06:15)
[2020-07-01 06:22] LABS: Ammonia 29 umol/L (9-30)
[2020-07-01 06:29] LABS: Alanine Aminotransferase 25 U/L (4-50); Alkaline Phosphatase 73 U/L (38-126); Anion Gap 8 mmol/L (8-16); Aspartate Amino Transferase 40 U/L (17-59); Bilirubin,Total 0.4 mg/dL (0.2-1.3); Blood Urea Nitrogen 7 mg/dL (9-20); Calcium 8.7 mg/dL (8.4-10.2); Carbon Dioxide 32 mmol/L (22-30); Chloride 103 mmol/L (98-107); Estimated Glomerular Filt Rate > 60; Glucose 113 mg/dL (75-110); Magnesium 1.8 mg/dL (1.6-2.3); Potassium 3.3 mmol/L (3.4-5.0); Sodium 143 mmol/L (137-145)
[2020-07-01] MEDS: polyethylene glycoL 3350 17 GM POWD.PACK PO (08:40)
[2020-07-01] MEDS: DULoxetine HCL 30 MG CAPSULE.DR PO (08:40)
[2020-07-01] MEDS: ATORVASTATIN 40 MG TABLET PO (08:40)
[2020-07-01] MEDS: CHOLECALCIFEROL 1,000 UNITS TABLET 5000 UNITS PO (08:40)
[2020-07-01 08:41] VITALS: PULSE 72
[2020-07-01] MEDS: METOPROLOL TARTRATE 25 MG TABLET PO (08:41)
[2020-07-01] MEDS: ASPIRIN 81 MG CHEWABLE TABLET PO (08:41)
[2020-07-01 09:36] LABS: Glucose Point of Care 111 (65-105)
[2020-07-01 09:37] LABS: Basophils Percent Auto 0.3 % (0.2-1.2); Eosinophils Absolute Auto 0.1 K/mm3 (0-0.3); Hematocrit 30.3 % (42.0-52.0); Hemoglobin 10.1 g/dL (14.0-18.0); Immature Granulocyte Absolute 0.01 K/mm3 (0.00-0.031); Immature Granulocyte Percent A 0.3 % (0-0.5); Mean Corpuscular HGB Conc 33.3 g/dl (32-36); Mean Corpuscular Hemoglobin 28.7 pg (26-34); Mean Corpuscular Volume 86.1 fl (80-100); Mean Platelet Volume 9.2 fl (7.4-10.4); Monocytes Absolute Auto 0.5 K/mm3 (0.1-0.6); Monocytes Percent Auto 11.9 % (2.6-8.5); Neutrophils Absolute Auto 1.9 K/mm3 (1.3-6.7); Neutrophils Percent Auto 47.5 % (45.5-73.1); Platelet Count Result 310 k/mm3 (150-375); Red Blood Count 3.52 M/mm3 (4.6-6.20); Red Cell Distribution Width 13.8 % (11.5-14.5)
[2020-07-01] MEDS: SODIUM CHLORIDE 0.9% IV 1,000 ML 70 ML IV CONT (11:49)
[2020-07-01 12:11] LABS: Glucose Point of Care 98 (65-105)
[2020-07-01 12:23] LABS: Glucose Point of Care 100 (65-105)
[2020-07-01] MEDS: POTASSIUM CHLORIDE 20 MEQ TABLET 40 MEQ PO (13:46)
[2020-07-01] MEDS: MAGNESIUM OXIDE 400 MG TABLET PO (13:46)
--- NOTE | 2020-07-01 15:48 | PM.IMPN ---
Progress Note: A&P Assessment and Plan (1) UTI (urinary tract infection): Qualifiers: Hematuria presence: with hematuria Urinary tract infection type: acute cystitis Qualified Code(s): N30.01 - Acute cystitis with hematuria Code(s): N39.0 - Urinary tract infection, site not specified Status: Acute Assessment and Plan: Urine culture growing E coli sensitive to Rocephin, blood cultures pending with no growth to date. Continue IV Rocephin (day 6) for now given AMS. (2) Sepsis: Qualifiers: Sepsis acute organ dysfunction status: without acute organ dysfunction Sepsis type: sepsis due to unspecified organism Qualified Code(s): A41.9 - Sepsis, unspecified organism Code(s): A41.9 - Sepsis, unspecified organism Status: Acute Assessment and Plan: Evident by fever, tachycardia, tachypnea; improved. Source of sepsis appears to be urinary at this time. Continue antibiotics and monitor vital signs, urine output. (3) Altered mental status: Qualifiers: Altered mental status type: unspecified Qualified Code(s): R41.82 - Altered mental status, unspecified Code(s): R41.82 - Altered mental status, unspecified Status: Acute Assessment and Plan: Talkative 06/28 and would verbally respond to questions asked, now more lethargic again. Brain CT is unremarkable for acute pathology. Suspected secondary to sepsis and UTI superimposed on deficits from chronic CVA. Possible waxing and waning alertness due to valproic acid for seizure disorder? Will repeat MRI brain due to his history of CVAs and appreciate neurology consultation to see if we could attempt to cut back on seizure medications if appropriate. (4) CVA (cerebral vascular accident): Qualifiers: CVA mechanism: unspecified Qualified Code(s): I63.9 - Cerebral infarction, unspecified Code(s): I63.9 - Cerebral infarction, unspecified Status: Acute Assessment and Plan: Chronic CVAs recently from March 2020. Continue ASA. (5) Chronic anemia: Code(s): D64.9 - Anemia, unspecified Status: Chronic Assessment and Plan: Suspect anemia of chronic disease. No evidence of acute bleeding. Monitor H&H, transfuse p.r.n. (6) Seizure disorder: Code(s): G40.909 - Epilepsy, unspecified, not intractable, without status epilepticus Status: Chronic Assessment and Plan: Continue divalproex IV. Appreciate neurology input on if his medications are contributing to drowsiness/lack of verbal communication. (7) Hypothyroidism: Qualifiers: Hypothyroidism type: unspecified Qualified Code(s): E03.9 - Hypothyroidism, unspecified Code(s): E03.9 - Hypothyroidism, unspecified Status: Chronic Assessment and Plan: Continue levothyroxine IV. (8) Hypertension: Qualifiers: Hypertension type: essential hypertension Qualified Code(s): I10 - Essential (primary) hypertension Code(s): I10 - Essential (primary) hypertension Status: Chronic Assessment and Plan: Blood pressures have been variable, elevated this afternoon. Continue home metoprolol, hold hydrochlorothiazide to avoid dehydration since he is not eating much, (can resume if BP remains elevated) monitor BP and adjust treatment as needed. 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
[2020-07-01 16:50] VITALS: BP 162/69; PULSE 57; RESP 18; TEMP 36.4; O2SAT 98
[2020-07-01 18:46] LABS: Valproic Acid 60.8 ug/mL (50-120)
[2020-07-01 19:43] LABS: Glucose Point of Care 87 (65-105)
[2020-07-01 20:20] VITALS: PULSE 64; RESP 18; O2SAT 99
[2020-07-01 21:11] LABS: Glucose Point of Care 129 (65-105)
[2020-07-01] MEDS: INSULIN GLARGINE (*BKC) 100 UNITS/ML 20 UNITS SUB-Q (21:11)
[2020-07-01 22:00] VITALS: BP 116/61; PULSE 64; RESP 18; TEMP 36.6; O2SAT 99
[2020-07-02] MEDS: LEVOTHYROXINE SODIUM INJ 100 MCG/5 ML VIAL 12.5 MCG IV PUSH (05:45)
[2020-07-02 05:55] LABS: Anion Gap 7 mmol/L (8-16); Blood Urea Nitrogen 7 mg/dL (9-20); Calcium 8.6 mg/dL (8.4-10.2); Carbon Dioxide 28 mmol/L (22-30); Chloride 105 mmol/L (98-107); Estimated Glomerular Filt Rate > 60; Glucose 123 mg/dL (75-110); Potassium 3.5 mmol/L (3.4-5.0); Sodium 140 mmol/L (137-145)
[2020-07-02 06:00] VITALS: BP 150/68; PULSE 66; RESP 18; TEMP 36.5; O2SAT 100
[2020-07-02 06:03] LABS: Basophils Percent Auto 0.2 % (0.2-1.2); Eosinophils Absolute Auto 0.1 K/mm3 (0-0.3); Eosinophils Percent Auto 2.1 % (0-4.4); Hematocrit 29.7 % (42.0-52.0); Immature Granulocyte Absolute 0.01 K/mm3 (0.00-0.031); Immature Granulocyte Percent A 0.2 % (0-0.5); Lymphocytes Absolute Auto 1.89 K/mm3 (0.9-3.2); Mean Corpuscular HGB Conc 33.7 g/dl (32-36); Mean Corpuscular Hemoglobin 28.8 pg (26-34); Mean Corpuscular Volume 85.6 fl (80-100); Mean Platelet Volume 9.3 fl (7.4-10.4); Monocytes Absolute Auto 0.5 K/mm3 (0.1-0.6); Monocytes Percent Auto 12.9 % (2.6-8.5); Neutrophils Absolute Auto 1.7 K/mm3 (1.3-6.7); Neutrophils Percent Auto 39.6 % (45.5-73.1); Platelet Count Result 331 k/mm3 (150-375); Red Blood Count 3.47 M/mm3 (4.6-6.20); Red Cell Distribution Width 13.9 % (11.5-14.5); White Blood Count 4.2 K/mm3 (4.5-10.0)
[2020-07-02 09:03] VITALS: PULSE 76
[2020-07-02] MEDS: DULoxetine HCL 30 MG CAPSULE.DR PO (09:03)
[2020-07-02] MEDS: CHOLECALCIFEROL 1,000 UNITS TABLET 5000 UNITS PO (09:03)
[2020-07-02] MEDS: ATORVASTATIN 40 MG TABLET PO (09:03)
[2020-07-02] MEDS: METOPROLOL TARTRATE 25 MG TABLET PO (09:03)
[2020-07-02] MEDS: ASPIRIN 81 MG CHEWABLE TABLET PO (09:03)
[2020-07-02 09:04] LABS: Glucose Point of Care 107 (65-105)
[2020-07-02] MEDS: MAGNESIUM OXIDE 400 MG TABLET PO (09:09)
[2020-07-02] MEDS: polyethylene glycoL 3350 17 GM POWD.PACK PO (09:10)
[2020-07-02 10:34] VITALS: O2SAT 96
[2020-07-02 14:00] VITALS: BP 147/63; PULSE 73; RESP 18; TEMP 36.6; O2SAT 95
--- NOTE | 2020-07-02 15:21 | PM.IMPN ---
Progress Note: A&P Assessment and Plan (1) UTI (urinary tract infection): Qualifiers: Hematuria presence: with hematuria Urinary tract infection type: acute cystitis Qualified Code(s): N30.01 - Acute cystitis with hematuria Code(s): N39.0 - Urinary tract infection, site not specified Status: Acute Assessment and Plan: Urine culture growing E coli sensitive to Rocephin, blood cultures pending with no growth to date. Completed a 7-day course of Rocephin today. (2) Sepsis: Qualifiers: Sepsis acute organ dysfunction status: without acute organ dysfunction Sepsis type: sepsis due to unspecified organism Qualified Code(s): A41.9 - Sepsis, unspecified organism Code(s): A41.9 - Sepsis, unspecified organism Status: Resolved Assessment and Plan: Evident by fever, tachycardia, tachypnea which have all resolved. Source of sepsis appears to be urinary at this time. Monitor vital signs, urine output. (3) Altered mental status: Qualifiers: Altered mental status type: unspecified Qualified Code(s): R41.82 - Altered mental status, unspecified Code(s): R41.82 - Altered mental status, unspecified Status: Acute Assessment and Plan: Talkative 06/28 and would verbally respond to questions asked, now with decreased verbal responses however he does open his eyes when you ask him to. Brain CT is unremarkable for acute pathology. MRI brain shows chronic CVAs without acute changes. Suspected secondary to sepsis and UTI superimposed on deficits from chronic CVA and schizophrenia. According to info from assisted today, this seems to be his new baseline since March CV. Possible waxing and waning alertness due to valproic acid for seizure disorder? Appreciate neurology consultation to see if seizure medication adjustments are appropriate. (4) CVA (cerebral vascular accident): Qualifiers: CVA mechanism: unspecified Qualified Code(s): I63.9 - Cerebral infarction, unspecified Code(s): I63.9 - Cerebral infarction, unspecified Status: Acute Assessment and Plan: Chronic CVAs recently from March 2020. Continue ASA. (5) Chronic anemia: Code(s): D64.9 - Anemia, unspecified Status: Chronic Assessment and Plan: H&H remains low but stable. Suspect anemia of chronic disease. No evidence of acute bleeding. Monitor H&H, transfuse p.r.n. (6) Seizure disorder: Code(s): G40.909 - Epilepsy, unspecified, not intractable, without status epilepticus Status: Chronic Assessment and Plan: Continue divalproex IV because he is sometimes not agreeable to taking oral meds. Appreciate neurology input on if his medications are contributing to drowsiness/lack of verbal communication. (7) Hypothyroidism: Qualifiers: Hypothyroidism type: unspecified Qualified Code(s): E03.9 - Hypothyroidism, unspecified Code(s): E03.9 - Hypothyroidism, unspecified Status: Chronic Assessment and Plan: Continue levothyroxine IV. (8) Hypertension: Qualifiers: Hypertension type: essential hypertension Qualified Code(s): I10 - Essential (primary) hypertension Code(s): I10 - Essential (primary) hypertension Status: Chronic Assessment and Plan: Blood pressures have been variable, elevated this afternoon. Continue home metoprolol, HCTZ. Monitor BP and adjust treatment as needed. (9) Diabetes mellitus: Qualifiers: Diabetes mellitus complication status: with other specified complication Diabetes mellitus retirement in
[2020-07-02] MEDS: hydroCHLOROthiazide 25 MG TABLET 50 MG PO (18:34)
[2020-07-02 18:48] LABS: Glucose Point of Care 147 (65-105)
[2020-07-02 20:15] VITALS: PULSE 73; RESP 18; O2SAT 95
[2020-07-02] MEDS: INSULIN GLARGINE (*BKC) 100 UNITS/ML 20 UNITS SUB-Q (21:22)
[2020-07-02 21:27] LABS: Glucose Point of Care 168 (65-105)
[2020-07-02 22:00] VITALS: BP 145/89; PULSE 60; RESP 18; TEMP 36.9; O2SAT 98
[2020-07-03 00:37] LABS: Glucose Point of Care 152 (65-105)
[2020-07-03] MEDS: SODIUM CHLORIDE 0.9% IV 1,000 ML 70 ML IV CONT ×2 (03:35→18:30)
[2020-07-03 06:00] VITALS: BP 120/50; PULSE 52; RESP 18; TEMP 36.3; O2SAT 98
[2020-07-03] MEDS: LEVOTHYROXINE SODIUM INJ 100 MCG/5 ML VIAL 12.5 MCG IV PUSH (06:23)
[2020-07-03 07:04] LABS: Basophils Percent Auto 0.2 % (0.2-1.2); Eosinophils Absolute Auto 0.1 K/mm3 (0-0.3); Hematocrit 30.9 % (42.0-52.0); Hemoglobin 10.4 g/dL (14.0-18.0); Immature Granulocyte Absolute 0.02 K/mm3 (0.00-0.031); Immature Granulocyte Percent A 0.4 % (0-0.5); Lymphocytes Absolute Auto 2.19 K/mm3 (0.9-3.2); Lymphocytes Percent Auto 39.5 % (18.3-44.2); Mean Corpuscular HGB Conc 33.7 g/dl (32-36); Mean Corpuscular Volume 86.1 fl (80-100); Mean Platelet Volume 9.1 fl (7.4-10.4); Monocytes Absolute Auto 0.5 K/mm3 (0.1-0.6); Monocytes Percent Auto 9.2 % (2.6-8.5); Neutrophils Absolute Auto 2.7 K/mm3 (1.3-6.7); Neutrophils Percent Auto 48.7 % (45.5-73.1); Platelet Count Result 402 k/mm3 (150-375); Red Blood Count 3.59 M/mm3 (4.6-6.20); Red Cell Distribution Width 13.9 % (11.5-14.5); White Blood Count 5.6 K/mm3 (4.5-10.0)
[2020-07-03 07:18] LABS: Anion Gap 6 mmol/L (8-16); Blood Urea Nitrogen 5 mg/dL (9-20); Calcium 8.8 mg/dL (8.4-10.2); Carbon Dioxide 32 mmol/L (22-30); Chloride 103 mmol/L (98-107); Estimated Glomerular Filt Rate > 60; Glucose 82 mg/dL (75-110); Potassium 3.5 mmol/L (3.4-5.0); Sodium 141 mmol/L (137-145)
[2020-07-03] MEDS: DULoxetine HCL 30 MG CAPSULE.DR PO (09:14)
[2020-07-03] MEDS: polyethylene glycoL 3350 17 GM POWD.PACK PO (09:14)
[2020-07-03] MEDS: MAGNESIUM OXIDE 400 MG TABLET PO (09:14)
[2020-07-03] MEDS: hydroCHLOROthiazide 25 MG TABLET 50 MG PO (09:14)
[2020-07-03] MEDS: ATORVASTATIN 40 MG TABLET PO (09:14)
[2020-07-03] MEDS: CHOLECALCIFEROL 1,000 UNITS TABLET 5000 UNITS PO (09:14)
[2020-07-03] MEDS: ASPIRIN 81 MG CHEWABLE TABLET PO (09:14)
[2020-07-03 09:15] VITALS: PULSE 70
[2020-07-03] MEDS: METOPROLOL TARTRATE 25 MG TABLET PO (09:15)
--- NOTE | 2020-07-03 09:25 | PCNWS ---
Weekly nutritional screen. Spoke with nursing today, patient has decreased verbal communication. Patient is tolerating current diet-Minced and Moist, Level 5/DBCC with Glucerna shakes BID with adequate [id number]% of meals. No weight loss reported. No nutritional needs at this time.
[2020-07-03 13:25] LABS: Glucose Point of Care 192 (65-105)
[2020-07-03 13:26] LABS: Glucose Point of Care 80 (65-105)
[2020-07-03 14:00] VITALS: BP 128/83; PULSE 74; RESP 16; TEMP 36.6; O2SAT 97
--- NOTE | 2020-07-03 15:53 | PM.IMPN ---
Progress Note: A&P Assessment and Plan (1) UTI (urinary tract infection): Qualifiers: Hematuria presence: with hematuria Urinary tract infection type: acute cystitis Qualified Code(s): N30.01 - Acute cystitis with hematuria Code(s): N39.0 - Urinary tract infection, site not specified Status: Acute Assessment and Plan: Urine culture grew E coli sensitive to Rocephin. His mom is concerned because this is his 3rd UTI in 3-4 months. Blood cultures negative Completed a 7-day course of Rocephin on 07/02/20. Case discussed with Urology. Consult placed due to frequent UTis Will obtain renal ultrasound Bladder scan after voiding to ensure complete emptying, although this may be difficult to obtain as patient is incontinent (2) Sepsis: Qualifiers: Sepsis acute organ dysfunction status: without acute organ dysfunction Sepsis type: sepsis due to unspecified organism Qualified Code(s): A41.9 - Sepsis, unspecified organism Code(s): A41.9 - Sepsis, unspecified organism Status: Resolved Assessment and Plan: Evident by fever, tachycardia, tachypnea which have all resolved. Source of sepsis appears to be urinary at this time. Monitor vital signs, urine output. (3) Altered mental status: Qualifiers: Altered mental status type: unspecified Qualified Code(s): R41.82 - Altered mental status, unspecified Code(s): R41.82 - Altered mental status, unspecified Status: Acute Assessment and Plan: He has decreased verbal responsiveness and however he is able to follow simple commands. Brain CT is unremarkable for acute pathology. MRI brain shows chronic CVAs without acute changes. Suspected secondary to sepsis and UTI superimposed on deficits from chronic CVA and schizophrenia. According to info from alf today, this seems to be his new baseline since March CVAs. Possible waxing and waning alertness due to valproic acid for seizure disorder. Appreciate neurology consultation to see if seizure medication adjustments are appropriate. (4) CVA (cerebral vascular accident): Qualifiers: CVA mechanism: unspecified Qualified Code(s): I63.9 - Cerebral infarction, unspecified Code(s): I63.9 - Cerebral infarction, unspecified Status: Acute Assessment and Plan: Chronic CVAs recently from March 2020. Continue ASA. (5) Chronic anemia: Code(s): D64.9 - Anemia, unspecified Status: Chronic Assessment and Plan: H&H remains low but stable. Suspect anemia of chronic disease. No evidence of acute bleeding. Monitor H&H, transfuse p.r.n. (6) Seizure disorder: Code(s): G40.909 - Epilepsy, unspecified, not intractable, without status epilepticus Status: Chronic Assessment and Plan: Continue depakote IV at this time, as he has not been agreeable to oral meds. Appreciate neurology input on if his medications are contributing to drowsiness/lack of verbal communication. (7) Hypothyroidism: Qualifiers: Hypothyroidism type: unspecified Qualified Code(s): E03.9 - Hypothyroidism, unspecified Code(s): E03.9 - Hypothyroidism, unspecified Status: Chronic Assessment and Plan: Continue levothyroxine IV. (8) Hypertension: Qualifiers: Hypertension type: essential hypertension Qualified Code(s): I10 - Essential (primary) hypertension Code(s): I10 - Essential (primary) hypertension Status: Chronic Assessment and Plan: Blood pressures have been variable but remain well controlled today. Last reading 128/83. Continue home metoprolol, HCTZ. Monitor BP and adjust treatment as needed. 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
[2020-07-03 18:30] LABS: Glucose Point of Care 117 (65-105)
[2020-07-03] MEDS: INSULIN GLARGINE (*BKC) 100 UNITS/ML 20 UNITS SUB-Q (20:42)
[2020-07-03 21:24] LABS: Glucose Point of Care 176 (65-105)
[2020-07-03 21:55] VITALS: BP 145/70; PULSE 72; RESP 18; TEMP 36.7; O2SAT 97
[2020-07-04 01:59] LABS: SARS-CoV-2 RNA PCR Negative
[2020-07-04 05:50] VITALS: BP 122/62; PULSE 59; RESP 18; TEMP 36.6; O2SAT 99
[2020-07-04] MEDS: LEVOTHYROXINE SODIUM INJ 100 MCG/5 ML VIAL 12.5 MCG IV PUSH (05:58)
[2020-07-04 06:39] LABS: Hematocrit 31.5 % (42.0-52.0); Hemoglobin 10.5 g/dL (14.0-18.0); Mean Corpuscular HGB Conc 33.3 g/dl (32-36); Mean Corpuscular Hemoglobin 28.9 pg (26-34); Mean Corpuscular Volume 86.8 fl (80-100); Mean Platelet Volume 9.2 fl (7.4-10.4); Platelet Count Result 479 k/mm3 (150-375); Red Blood Count 3.63 M/mm3 (4.6-6.20); Red Cell Distribution Width 14.3 % (11.5-14.5); White Blood Count 5.5 K/mm3 (4.5-10.0)
[2020-07-04 06:51] LABS: Anion Gap 8 mmol/L (8-16); Blood Urea Nitrogen 7 mg/dL (9-20); Calcium 8.7 mg/dL (8.4-10.2); Carbon Dioxide 30 mmol/L (22-30); Chloride 103 mmol/L (98-107); Estimated Glomerular Filt Rate > 60; Glucose 96 mg/dL (75-110); Potassium 3.6 mmol/L (3.4-5.0); Sodium 141 mmol/L (137-145)
[2020-07-04 08:37] VITALS: PULSE 72
[2020-07-04] MEDS: METOPROLOL TARTRATE 25 MG TABLET PO (08:37)
[2020-07-04] MEDS: polyethylene glycoL 3350 17 GM POWD.PACK PO (08:37)
[2020-07-04] MEDS: DULoxetine HCL 30 MG CAPSULE.DR PO (08:38)
[2020-07-04] MEDS: MAGNESIUM OXIDE 400 MG TABLET PO (08:38)
[2020-07-04] MEDS: hydroCHLOROthiazide 25 MG TABLET 50 MG PO (08:38)
[2020-07-04] MEDS: ATORVASTATIN 40 MG TABLET PO (08:38)
[2020-07-04] MEDS: ASPIRIN 81 MG CHEWABLE TABLET PO (08:38)
[2020-07-04] MEDS: CHOLECALCIFEROL 1,000 UNITS TABLET 5000 UNITS PO (08:39)
[2020-07-04 08:58] LABS: Glucose Point of Care 93 (65-105)
[2020-07-04 12:50] LABS: Glucose Point of Care 105 (65-105)
[2020-07-04 14:00] VITALS: BP 118/68; PULSE 76; RESP 20; TEMP 36.2; O2SAT 97
--- NOTE | 2020-07-04 16:35 | PM.DS ---
DS: Admitting Diagnosis Admitting Diagnosis Admitting Diagnosis: Sepsis, UTI DS: Discharge Diagnosis Discharge Diagnosis (1) UTI (urinary tract infection): Qualifiers: Hematuria presence: with hematuria Urinary tract infection type: acute cystitis Qualified Code(s): N30.01 - Acute cystitis with hematuria Code(s): N39.0 - Urinary tract infection, site not specified Status: Acute Assessment and Plan: Urine culture grew E coli sensitive to Rocephin. He completed 7 days of IV Rocephin on 07/02/2020. Blood cultures negative. This is his 3rd UTI over the past 3-4 months, therefore urology was consulted and recommended daily PO Keflex prophylaxis for 3 months with virtual follow up appointment at that time. Renal US unremarkable. (2) Sepsis: Qualifiers: Sepsis acute organ dysfunction status: without acute organ dysfunction Sepsis type: sepsis due to unspecified organism Qualified Code(s): A41.9 - Sepsis, unspecified organism Code(s): A41.9 - Sepsis, unspecified organism Status: Resolved Assessment and Plan: Evident by fever, tachycardia, tachypnea which all resolved. Source of sepsis felt to be urinary. Completed antibiotics as above. (3) Altered mental status: Qualifiers: Altered mental status type: unspecified Qualified Code(s): R41.82 - Altered mental status, unspecified Code(s): R41.82 - Altered mental status, unspecified Status: Acute Assessment and Plan: He has decreased verbal responsiveness but is generally able to follow commands. Brain CT is unremarkable for acute pathology. MRI brain showed chronic CVAs without acute changes. Suspected secondary to sepsis and UTI superimposed on deficits from chronic CVA and schizophrenia. According to [facility] staff and patient's mother, patient is at his new baseline since March following CVAs. (4) CVA (cerebral vascular accident): Qualifiers: CVA mechanism: unspecified Qualified Code(s): I63.9 - Cerebral infarction, unspecified Code(s): I63.9 - Cerebral infarction, unspecified Status: Acute Assessment and Plan: Chronic CVAs recently from March 2020. Continue ASA. (5) Chronic anemia: Code(s): D64.9 - Anemia, unspecified Status: Chronic Assessment and Plan: Suspect anemia of chronic disease. H&H remained stable. No evidence of acute bleeding. Vital signs stable. (6) Seizure disorder: Code(s): G40.909 - Epilepsy, unspecified, not intractable, without status epilepticus Status: Chronic Assessment and Plan: Patient evaluated by neurology to ensure appropriate does of Depakote and to ensure this medication was not contributing to drowsiness /lack of verbal communication. No changes in Basilio dose recommended. Patient will continue 750 mg b.i.d.. (7) Hypothyroidism: Qualifiers: Hypothyroidism type: unspecified Qualified Code(s): E03.9 - Hypothyroidism, unspecified Code(s): E03.9 - Hypothyroidism, unspecified Status: Chronic Assessment and Plan: Continue levothyroxine. (8) Hypertension: Qualifiers: Hypertension type: essential hypertension Qualified Code(s): I10 - Essential (primary) hypertension Code(s): I10 - Essential (primary) hypertension Status: Chronic Assessment and Plan: Blood pressures evaluated daily and overall well controlled, although variable. Continue metoprolol and HCTZ. 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
--- NOTE | 2020-08-07 13:39 | P.CONUR_ITS ---
Urology Consult Note HPI Date Seen: 08/07/20 Requesting Physician: Hodan Verdin PA-C Primary Care Provider: UNKNOWN,DOCTOR Consult Narrative Narrative: No consult was done on this patient as he was discharged prior to seeing him. 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 Family History Family History Father Acute myocardial infarction the age of 32 from [place] Mother Osteoporosis Grandparent Diabetes mellitus Social History Social History Smoking status: Former smoker Alcohol intake: unknown Substance use: unknown Gender identity (if verbalized by the patient): Male Spiritual care concerns: No Meds Home Medications and Allergies Home Medications Medication Instructions Recorded Confirmed Type Multi Vitamin 1 tab-cap PO DAILY 03/24/20 06/27/20 History Spiriva Respimat 1 inh INHALATION DAILY 03/24/20 06/27/20 History acetaminophen [Acetaminophen Extra 1,000 mg PO Q6H PRN 03/24/20 06/27/20 History Strength] aspirin 81 mg PO DAILY 03/24/20 06/27/20 History atorvastatin 40 mg PO DAILY 03/24/20 06/27/20 History cholecalciferol (vitamin D3) 5,000 unit PO DAILY 03/24/20 06/27/20 History divalproex 750 mg PO BID 03/24/20 06/27/20 History duloxetine 30 mg PO DAILY 03/24/20 06/27/20 History gabapentin 300 mg PO TID 03/24/20 06/27/20 History insulin glargine 40 unit SUBCUT HS 03/24/20 06/27/20 History levothyroxine 25 mcg PO DAILY 03/24/20 06/27/20 History metformin 500 mg PO BID 03/24/20 06/27/20 History metoprolol tartrate 25 mg PO DAILY 03/24/20 06/27/20 History polyethylene glycol 3350 17 g PO DAILY 03/24/20 06/27/20 History risperidone 6 mg PO BID 03/24/20 06/27/20 History sennosides-docusate sodium 1 tab-cap PO DAILY 03/24/20 06/27/20 History trihexyphenidyl 5 mg PO TID 03/24/20 06/27/20 History hydrochlorothiazide 50 mg PO DAILY 06/26/20 06/27/20 History Senexon-S 8.6 mg PO DAILY 06/27/20 06/27/20 History cephalexin 250 mg PO DAILY #30 cap 07/04/20 Rx Allergies Allergy/AdvReac Type Severity Reaction Status Date / Time lisinopril Allergy Severe Swelling Verified 06/27/20 02:44 Results Labs CBC & Chem 7: 07/04/20 05:45 07/04/20 05:45 Quality VTE Prophylaxis VTE prophylaxis: mechanical ordered (SCDs)
== END 2020-07-04 14:49 | DRG 872 ==
LOC: ANHED 22:44 → ANH3MEDSUR 06-27 03:54
PROVIDERS: Physician Assistant; Admitting Provider Family Medicine; Emergency Provider Emergency Medicine; Visit Provider Physician Assistant
DX: A41.9 Sepsis, unspecified organism (principal); N30.01 Acute cystitis with hematuria; B96.20 Unspecified Escherichia coli [E. coli] as the cause of diseases classified elsewhere; Z20.828 Contact with and (suspected) exposure to other viral communicable diseases; I69.398 Other sequelae of cerebral infarction; R41.82 Altered mental status, unspecified; D64.9 Anemia, unspecified; G40.909 Epilepsy, unspecified, not intractable, without status epilepticus; E03.9 Hypothyroidism, unspecified; I10 Essential (primary) hypertension; E11.9 Type 2 diabetes mellitus without complications; E78.5 Hyperlipidemia, unspecified; F20.9 Schizophrenia, unspecified; Z79.4 Long term (current) use of insulin; Z79.899 Other long term (current) drug therapy; Z87.440 Personal history of urinary (tract) infections; Z87.891 Personal history of nicotine dependence; Z89.512 Acquired absence of left leg below knee; Z89.611 Acquired absence of right leg above knee
CPT/HCPCS: 36415; 51701; 70450; 70551; 71045; 76775; 80048; 80053; 80164; 81001; 82140; 82948; 83605; 83735; 85025; 85027; 87040; 87077; 87086; 87088; 87186; 87635; 93005; 96361; 96365; 96367; 96375; 99285; A9270; C9803; J0131; J0456; J0696; J1815; J3475; J3480; J7030; U0003

== ENCOUNTER 2021-10-30 19:30 | Emergency (ER) | payer MEDICARE, MEDICAID, SELFPAY ==
[2021-10-30] VITALS (7 sets, daily range): BP systolic 120–146; BP diastolic 61–78; PULSE 88–93; RESP 16; TEMP 36.3; O2SAT 96–99
--- NOTE | ~2021-10-30 | CT_ITS ---
EXAMINATION: CT brain wo con, CT cervical spine wo con EXAM DATE: 10/30/2021 21:36 INDICATION: Fall, head injury, on anticoagulation. TECHNIQUE: Spiral CT of the head was performed without contrast. Axial, coronal and sagittal images were reviewed. Spiral CT of the cervical spine was performed without contrast. Axial images were rev iewed. Coronal and sagittal reformatted images were also reviewed. The dose-length product (DLP) fo r this examination was 605.33 (accession [id number]), 442.35 (accession [id number]) mGy-cm. The exposure was tailored according to patient size, and iterative reconstruction (ASIR) was used as additional dose reduction technique. Comparison is made to prior examination from 06/26/2020. FINDINGS: HEAD CT: There is small old left cerebellar infarction. Small old right occipital lobe infarction. Ol d left thalamic lacunar infarction. Mild microangiopathy and moderate cerebral atrophy. There is no a cute intraparenchymal hemorrhage. No evidence of intraparenchymal brain mass lesion. No evidence of acute infarction. There is no mass effect or midline shift. There is no obstructive hydrocephalus moss spected. There are no extra-axial collections. There are no acute calvarial fractures. The orbits are unremarkable. Soft tissue is unremarkable. The visualized sinuses and mastoid air cells are wel l aerated. There is no significant interval change. CERVICAL CT: There is no evidence of acute cervical fracture. The odontoid process is intact. Pre- dens space is normal. Prevertebral soft tissue is normal. There are no soft tissue abnormalities id entified. There is no disc space widening or traumatic vertebral body subluxation suspected. There is moderate to severe disc disease at C5-6 and 6-7, moderate at C3-4. There is 4 mm degenerative ante rolisthesis C3 on C4, with the left C3-4 neural foramina most narrowed on examination. There is advan daysi cervical arthropathy. A detailed level by level evaluation of spondylosis can be added as addendu m if requested. IMPRESSION: 1. No acute intracranial findings or cervical fracture. 2. Old small infarctions. 3. Advanced cervical spondylosis. Reviewed, dictated and finalized at location G. IMPRESSION: 1. No acute intracranial findings or cervical fracture. 2. Old small infarctions. 3. Advanced cervical spondylosis.
--- NOTE | 2021-10-30 20:59 | ED.FALL ---
HPI - Fall General Chief Complaint: Fall Stated Complaint: unwitnessed fall/on thinners/hit head Time Seen by Provider: 10/30/21 20:48 Source: patient and old records reviewed Mode of arrival: EMS Limitations: dementia History of Present Illness HPI Narrative: Patient is a 61-year-old male who presents the ED via EMS with report of a fall. Patient is a resident at [facility]. Per nursing report, the patient had an unwitnessed fall today. It is unknown if he hit his head or lost consciousness. He is on Eliquis and thus was sent here for further evaluation. Patient denies any pain or complaints currently. Denies CP, SOB, DONG. Patient is a bilateral [id number] amputee and reported to the ED nurse that he fell out of his wheelchair. He is unable to describe further how the fall occurred. Per NH report, the patient has been at his baseline mental status since the fall. He is A&O X 1-2 currently in the ED. Related Data Home Medications Medication Instructions Recorded Confirmed Multi Vitamin 1 tab-cap PO DAILY 03/24/20 06/27/20 Spiriva Respimat 1 inh INHALATION DAILY 03/24/20 06/27/20 acetaminophen [Acetaminophen Extra 1,000 mg PO Q6H PRN 03/24/20 06/27/20 Strength] aspirin 81 mg PO DAILY 03/24/20 06/27/20 atorvastatin 40 mg PO DAILY 03/24/20 06/27/20 cholecalciferol (vitamin D3) 5,000 unit PO DAILY 03/24/20 06/27/20 divalproex 750 mg PO BID 03/24/20 06/27/20 duloxetine 30 mg PO DAILY 03/24/20 06/27/20 gabapentin 300 mg PO TID 03/24/20 06/27/20 insulin glargine 40 unit SUBCUT HS 03/24/20 06/27/20 levothyroxine 25 mcg PO DAILY 03/24/20 06/27/20 metformin 500 mg PO BID 03/24/20 06/27/20 metoprolol tartrate 25 mg PO DAILY 03/24/20 06/27/20 polyethylene glycol 3350 17 g PO DAILY 03/24/20 06/27/20 risperidone 6 mg PO BID 03/24/20 06/27/20 sennosides-docusate sodium 1 tab-cap PO DAILY 03/24/20 06/27/20 trihexyphenidyl 5 mg PO TID 03/24/20 06/27/20 hydrochlorothiazide 50 mg PO DAILY 06/26/20 06/27/20 Senexon-S 8.6 mg PO DAILY 06/27/20 06/27/20 Allergies Allergy/AdvReac Type Severity Reaction Status Date / Time lisinopril Allergy Severe Swelling Verified 06/27/20 02:44 Review of Systems Review of Systems: CONSTITUTIONAL: Denies fever. CARDIOVASCULAR: Denies chest pain. RESPIRATORY: Denies dyspnea. NEUROLOGIC: Reports fall, unknown HI. Denies headache. ROS unobtainable: Yes unobtainable due to mental status (baseline mental status) [facility] Past Medical History Medical History Depression Diabetes mellitus Hyperlipemia Hypertension Seizure Surgical History Surgical History History of left below knee amputation Right above-knee amputee S/P bilateral above knee amputation Family History Family History Father Acute myocardial infarction the age of 32 from [place] Mother Osteoporosis Grandparent Diabetes mellitus Social History Social History Smoking status: Former smoker Alcohol intake: unknown Substance use: unknown Gender identity (if verbalized by the patient): Male Spiritual care concerns: No Exam Narrative: GENERAL: Well appearing, well-nourished, non-toxic, in no acute distress. HEAD: Normocephalic, atraumatic. No scalp tenderness to palpation. No wounds. EYES: R strabismus, conjunctivae clear bilaterally. NECK: Supple. No adenopathy, no masses. No midline cervical spinal tenderness. RESPIRATORY: Airway patent, respirations nonlabored. Clear to auscultation bilaterally, no rales, rhonchi, wheezing. CARDIOVASCULAR: Regular rate and rhythm without murmurs, rubs, or gallops. Radial pulses 2+ and equal bilaterally. ABDOMINAL: Soft, nontender, nondistended. Normoactive BS. MUSCULOSKELETAL: Bilateral AKA. No gross deformities. No tenderness to palpation of hamida
--- NOTE | 2021-10-30 21:14 | PC.NURSE ---
eliquis 5 mg PO is the blood thinner per Raquel at the facility.
--- NOTE | 2021-10-30 21:34 | PC.NURSE ---
Pt to CT.
[2021-10-30 22:21] LABS: INR 1.1; Prothrombin Time 13.4 Seconds (11.1-14.7)
[2021-10-30 22:22] LABS: Partial Thromboplastin Time 27.6 SECONDS (22.3-36.8)
--- NOTE | 2021-10-30 22:45 | PC.NURSE ---
Report given to Pamela at [facility].
== END 2021-10-30 23:48 ==
PROVIDERS: Physician Assistant; Emergency Provider Emergency Medicine
DX: M47.812 Spondylosis without myelopathy or radiculopathy, cervical region (principal); Z79.01 Long term (current) use of anticoagulants; Z89.612 Acquired absence of left leg above knee; Z89.611 Acquired absence of right leg above knee; W19.XXXA Unspecified fall, initial encounter; F32.9 Major depressive disorder, single episode, unspecified; E11.9 Type 2 diabetes mellitus without complications; I10 Essential (primary) hypertension; E78.5 Hyperlipidemia, unspecified; Z79.4 Long term (current) use of insulin
CPT/HCPCS: 36415; 70450; 72125; 85610; 85730; 99284

== ENCOUNTER 2022-01-16 14:16 | Emergency (ER) | payer MEDICARE, MEDICAID, SELFPAY ==
[2022-01-16 14:18] VITALS: BP 128/80; PULSE 98; RESP 16; TEMP 36.2; O2SAT 99
[2022-01-16 15:06] LABS: Basophils Percent Auto 0.3 % (0.2-1.2); Eosinophils Absolute Auto 0.1 K/mm3 (0-0.3); Eosinophils Percent Auto 0.8 % (0-4.4); Hematocrit 36.8 % (42.0-52.0); Hemoglobin 12.3 g/dL (14.0-18.0); Immature Granulocyte Absolute 0.02 K/mm3 (0.00-0.031); Immature Granulocyte Percent A 0.3 % (0-0.5); Lymphocytes Absolute Auto 2.24 K/mm3 (0.9-3.2); Lymphocytes Percent Auto 34.3 % (18.3-44.2); Mean Corpuscular HGB Conc 33.4 g/dl (32-36); Mean Corpuscular Hemoglobin 29.2 pg (26-34); Mean Corpuscular Volume 87.4 fl (80-100); Mean Platelet Volume 9.3 fl (7.4-10.4); Monocytes Absolute Auto 0.7 K/mm3 (0.1-0.6); Monocytes Percent Auto 11.2 % (2.6-8.5); Neutrophils Absolute Auto 3.5 K/mm3 (1.3-6.7); Neutrophils Percent Auto 53.1 % (45.5-73.1); Platelet Count Result 248 k/mm3 (150-375); Red Blood Count 4.21 M/mm3 (4.6-6.20); Red Cell Distribution Width 13.7 % (11.5-14.5); White Blood Count 6.5 K/mm3 (4.5-10.0)
[2022-01-16 15:32] LABS: Alanine Aminotransferase 15 U/L (6-50); Alkaline Phosphatase 75 U/L (38-126); Anion Gap 8 mmol/L (8-16); Aspartate Amino Transferase 23 U/L (17-59); Bilirubin,Total 0.2 mg/dL (0.2-1.3); Blood Urea Nitrogen 11 mg/dL (9-20); Calcium 8.8 mg/dL (8.4-10.2); Carbon Dioxide 27 mmol/L (22-30); Chloride 100 mmol/L (98-107); Estimated CRCL calculation 86 ml/min; Estimated Glomerular Filt Rate > 60; Glucose 220 mg/dL (65-110); Potassium 3.4 mmol/L (3.4-5.0); Sodium 135 mmol/L (137-145)
[2022-01-16 16:02] LABS: Appearance Urine Slightly Cloudy (Clear); Bilirubin Urine Negative (Negative); Blood Urine Negative (Negative); Color Urine Yellow (Yellow); Glucose Urine UA Trace mg/dL (Negative); Ketones Urine 1+ mg/dL (Negative); Leukocyte Esterase Ur 2+ LEU/UL (Negative); Nitrate Urine Positive (Negative); Protein Urine Negative (Negative); Specific Grav Ur 1.015 (1.001-1.035); pH Urine 5.5 (5.0-9.0)
[2022-01-16 16:05] LABS: Bacteria Urine 3+ /hpf; RBC Urine 0-2 /hpf (0-2); WBC Urine >75 /hpf
[2022-01-16 16:08] LABS: Add Urine Microscopic? YES
[2022-01-16 16:26] VITALS: BP 137/76; PULSE 91; RESP 17; O2SAT 97
[2022-01-16] MEDS: CIPROFLOXACIN 500 MG TAB PO (17:13)
--- NOTE | 2022-01-16 17:19 | ED.GENADULT ---
HPI - General Adult General Chief complaint: Altered Mental Status Stated complaint: AMS Time Seen by Provider: 01/16/22 14:27 History of Present Illness HPI narrative: Patient is a 61-year-old male who presents ER from his [facility] with increased hallucinations. Patient does have history of mental illness. He is also been having urinary incontinence and frequency and they are concerned for UTI. Patient is awake alert and oriented. He denies any pain or other issues but does report he has been urinating on himself. He does not wish to have any additional conversations but reports no pain. Related Data Home Medications Medication Instructions Recorded Confirmed Multi Vitamin 1 tab-cap PO DAILY 03/24/20 06/27/20 acetaminophen 500 mg tablet 1,000 mg PO Q6H PRN Pain 03/24/20 06/27/20 (Acetaminophen Extra Strength) aspirin 81 mg chewable tablet 81 mg PO DAILY 03/24/20 06/27/20 atorvastatin 20 mg tablet 40 mg PO DAILY 03/24/20 06/27/20 cholecalciferol (vitamin D3) 25 5,000 unit PO DAILY 03/24/20 06/27/20 mcg (1,000 unit) capsule divalproex 500 mg tablet,extended 750 mg PO BID 03/24/20 06/27/20 release 24 hr duloxetine 30 mg capsule,delayed 30 mg PO DAILY 03/24/20 06/27/20 release gabapentin 300 mg capsule 300 mg PO TID 03/24/20 06/27/20 insulin glargine 100 unit/mL 40 unit subcut HS 03/24/20 06/27/20 subcutaneous solution levothyroxine 25 mcg capsule 25 mcg PO DAILY 03/24/20 06/27/20 metformin 500 mg tablet 500 mg PO BID 03/24/20 06/27/20 metoprolol tartrate 25 mg tablet 25 mg PO DAILY 03/24/20 06/27/20 polyethylene glycol 3350 17 gram 17 g PO DAILY 03/24/20 06/27/20 oral powder packet risperidone 4 mg tablet 6 mg PO BID 03/24/20 06/27/20 sennosides 8.6 mg-docusate sodium 1 tab-cap PO DAILY 03/24/20 06/27/20 50 mg capsule tiotropium bromide 1.25 1 inh inhalation DAILY 03/24/20 06/27/20 mcg/actuation mist for inhalation (Spiriva Respimat) trihexyphenidyl 5 mg tablet 5 mg PO TID 03/24/20 06/27/20 hydrochlorothiazide 50 mg tablet 50 mg PO DAILY 06/26/20 06/27/20 Senexon-S 8.6 mg PO DAILY 06/27/20 06/27/20 Allergies Allergy/AdvReac Type Severity Reaction Status Date / Time lisinopril Allergy Severe Swelling Verified 01/16/22 14:21 Review of Systems Review of Systems: All systems reviewed & are unremarkable except as noted in HPI and below Constitutional: Constitutional: Denies chills and Denies fever(s) PMFSH Past Medical History Medical History Depression Diabetes mellitus Hyperlipemia Hypertension Seizure Surgical History Surgical History History of left below knee amputation Right above-knee amputee S/P bilateral above knee amputation Family History Family History Father Acute myocardial infarction the age of 32 from [place] Mother Osteoporosis Grandparent Diabetes mellitus Social History Social History Smoking status: Former smoker Alcohol intake: unknown Substance use: unknown Gender identity (if verbalized by the patient): Male Spiritual care concerns: No Exam Narrative: GENERAL: Well-appearing, well-nourished, and in no acute distress. HEAD: Normocephalic, atraumatic. ENT: Mucous membranes moist. CHEST: Clear to auscultation. No respiratory distress. HEART: Regular rate and rhythm. Normal peripheral pulses. ABDOMEN: Soft, nontender, nondistended. Lower shirt and pants soaked in urine EXTREMITIES: Normal range of motion. No edema. SKIN: Warm, dry, no rash. NEURO: Alert and oriented x3. PSYCH: Normal mood and affect. Course Course Emergency Course: Patient with UTI. Initially given ciprofloxacin. When doing discharge paperwork realized that it could interact with duloxetine so for home patient will receive cefuroxime. Vit
[2022-01-16 17:40] VITALS: BP 148/45; PULSE 86; RESP 15; O2SAT 97
== END 2022-01-16 17:55 ==
PROVIDERS: Emergency Provider Emergency Medicine
DX: N39.0 Urinary tract infection, site not specified (principal); E11.9 Type 2 diabetes mellitus without complications; I10 Essential (primary) hypertension; Z87.891 Personal history of nicotine dependence
CPT/HCPCS: 36415; 51701; 80053; 81001; 85025; 87077; 87086; 87186; 99283; A9270

== ENCOUNTER 2025-07-05 13:08 | Emergency (ER) | payer MEDICARE, MEDICAID, SELFPAY ==
[2025-07-05 13:09] VITALS: BP 125/59; PULSE 75; RESP 17; TEMP 36.4; O2SAT 100
--- OUTSIDE RECORDS SUMMARY | 2025-07-05 13:54 | XMS_ITS | Clinical Summary ---
Author Organization [facility] Address [address] [place] [address] Care Team Providers Care Merchandising Professor Name Role Phone Jose Manuel Nair MD Primary Care Provider [phone] Allergies Active Allergy Reactions Criticality Noted Date Comments Lisinopril Unknown 08/24/2017 Medications amlodipine 5 MG tablet Take 1 tablet (5 mg total) by mouth daily. 8 Active metFORMIN 1000 MG tablet Take 1 tablet (1,000 mg total) by mouth 2 (two) times daily with meals. 7 Active metoprolol succinate 25 MG 24 hr tablet Take 1 tablet (25 mg total) by mouth daily. 8 Active duloxetine 30 MG capsule Take 1 capsule (30 mg total) by mouth daily. Active risperiDONE 2 MG tablet Take 4 tablets (8 mg total) by mouth nightly at bedtime. Active acetaminophen 325 MG tablet Take by mouth every 4 (four) hours as needed for Pain. Active ELIQUIS 5 MG tablet 3 Active aspirin 81 MG chewable tablet Chew 1 tablet (81 mg total) by mouth daily. Active divalproex ER (DEPAKOTE) 250 MG 24 hr tablet Acti ve fenofibrate (TRICOR) 145 MG tablet 5 Active gemfibrozil (LOPID) 600 MG tablet Take 1 tablet (600 mg total) by mouth. 7 Active hydroCHLOROthia zide (HYDRODIURIL) 50 MG tablet Take 1 tablet (50 mg total) by mouth daily. Active insulin glargine (LANTUS SOLOSTAR) 100 UNIT/ML injection (PEN) 38 Units nightly at bedtime. Active HUMALOG 100 UNIT/ML injection (VIAL) 14 Units 3 (three) times daily before meals. 5 Active gabapentin (NEURONTIN) 300 MG capsule Take 1 capsule (300 mg total) by mouth 3 (three) times daily. 06/07/20 Discontinu ed(Patient Discharge) senokot (SENNA-TIME) 8.6 MG Tab tablet Take 2 tablets every day by oral route. 06/07/20 Discontinu ed(Patient Discharge) tamsulosin (FLOMAX) 0.4 MG Cap 4 06/07/20 Discontinu ed(Patient Discharge) tolterodine LA (DETROL LA) 4 MG 24 hr capsule Take 1 capsule (4 mg total) by mouth daily. 06/07/20 Discontinu ed(Patient Discharge) trihexyphenidyl (ARTANE) 5 MG Tab tablet Take 1 tablet (5 mg total) by mouth. 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 Resolved Problems Problem Noted Date Diagnosed Date Resolved Date Screening for colon cancer 06/07/2025 1 08/12/2024 Screening for colon cancer 02/09/2025 0 02/13/2025 Screening for colon cancer 02/09/2025 1 Screening for colon cancer 10/31/2024 0 11/07/2024 Encounters Date Type Department Care Team Description 06/14/2025 Telephone [facility] [address], [address] [place] [address] Mark Marquez MD Prior Authorization (Colonoscopy 55116) 06/07/2025 Orders Only [facility] - [address] [place] [address] Mark Marquez MD 06/07/[address] [place] [phone] Ernie Cason MD Appointment Request 05/30/[address] [place] [address] Ernie Cason MD Question 05/15/[address] [place] [phone] Ernie Cason MD Question 04/26/[address] [place] [phone] Ernie Cason MD Prior Authorization (Colonoscopy 10670) from Last 3 Months Family History Relation Status Comments Father Mother Alive Social History Tobacco Use Types Packs/Day Years Used Date Smoking Tobacco: Former Cigarettes 0.5 15 Cigars Smokeless Tobacco: Never Tobacco Cessation:Counseling Given: No Comments:HAS BEEN ON THE PATCH AT OTHER FACILITY Alcohol Use Standard Drinks/Week Comments No 0 (1 standard drink = 0.6 oz pur e alcohol) PHQ-2 Answer Date Recorded Patient Health Questionnaire-2 Score 0 10/31/2024 Sex and Gender Information Value Date Recorded Sex Assigned at Male 10/31/2024 10:43 AM CDT Legal Sex Male 8:11 PM CDT Gender Identity Male 10/31/2024 10:43 AM CDT Sexual Orientation Not on file Last Filed Vital Signs Vital Sign Reading Time Taken Comments Blood Pressure 110/80 10/31/2024 10:44 AM CDT Pulse 86 10/31/2024 10:44 AM CDT Temperature 36.7 C (98 F) 10/31/2024 10:44 AM CDT Respiratory Rate 20 10/31/2024 10:44 AM CDT Oxygen Saturation 97% 10/31/2024 10:44 AM CDT Inhaled Oxygen Concentration - - Weight 69.4 kg (153 lb) 05/24/2025 10:24 AM CDT Height 185.4 cm (6' 1) 05/28/2024 12:52 PM CDT Body Mass Index 20.19 05/28/2024 12:52 PM CDT Plan of Treatment Upcoming Encounters Date Type Department Care Team (Latest Contact Info) Description 07/26/2025 10:30 AM MINE GEOLOGIST Hospital Encounter [facility] [place] [address] Mark Marquez MD [address] [address] 07/26/2025 10:30 AM MINE GEOLOGIST - 07/26/2025 11:00 AM MINE GEOLOGIST Surgery [facility] Endo/[place] [address] Mark Marquez MD [address] [address] COLONOSCOPY SCREENING Scheduled Procedures Name Priority Associated Diagnoses Date/Ti me COLONOSCOPY SCREENING Chronic constipation Screening for colon cancer 07/26/2025 10:30 AM MINE GEOLOGIST Health Maintenance Due Date Last Done Comments Annual Physical 1963 Hepatitis C 1978 DTaP, Tdap and Td Vaccines (1 - Tdap) 1979 Pneumococcal Vaccine: 50+ Years (1 of 1 - PCV) 2010 Zoster Vaccines (1 of 2) 2010 COVID-19 Vaccine (6 - season) 2025 05/21/2023, 09/24/2022, 05/24/2021, Additional history exists Influenza Adult (#1) 2025 04/10/2021, 04/30/2017, 06/18/2016, Additional history exists Colorectal Cancer Screening Colonoscopy (10 Years) 09/22/2033 09/22/2023 RSV Immunization or 60+ Years (1 - 1-dose 75+ series) 2035 PHQ-2 (Physician [place]) Completed 10/31/2024 Hepatitis A Vaccines Aged Out No long er eligible based on patient's age to complete this topic Meningococcal B Vaccine Aged Out No l onger eligible based on patient's age to complete this topic Meningococcal Vaccine Aged Out No adia juan eligible based on patient's age to complete this topic RSV Immunizations Under 20 Months Aged Out No longer eligible based on patient's age to complete this topic Goals Goal Patient Goal Type Associated Problems Recent Progress Patient-Stated? Author Autogenera elias Goal Care Plan Autogenerated Problem No Saumya Rockwell [employer] Implanted Type Area Crew Leader/Control Room Operator Device Identifier Shelf Expiration Date Model / Serial / Lot Heart Procedures Procedure Name Priority Date/Time Associated Diagnosis Comments COLONOSCOPY GENERIC (SCAN ORDER) 09/22/2023 from Last 3 Months or Most Recently Relevant to Health Maintenance Results * COLONOSCOPY GENERIC (SCAN ORDER) (09/22/2023) 09/22/2023 [facility] Scanned SCANNING Final Resu lt from Last 3 Months or Most Recently Relevant to Health Maintenance Additional Health Concerns Active Problems Noted Date Diagnosed Date Autogenerated Problem 06/07/2025 Insurance MEDICARE [employer] Advance Directives Documents on File Type Date Recorded 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
--- OUTSIDE RECORDS SUMMARY | 2025-07-05 13:54 | XMS_ITS | Encounter Summary ---
Author Organization [facility] Address [address] [place] [address] Care Team Providers Care Medical Support Specialist Name Role Phone Jose Manuel Nair MD Primary Care Provider [phone] Reason for Visit * Reason Onset Date Comments Future Appointment 10/13/2023 Reschedule shanda Acosta Encounter Details Date Type Department Care Team (Late st Contact Info) Description 10/13/2023 Telephone [facility] - Centralized Scheduling [address] [place] [address] Maria Teresa Acosta MD [address] [facility] [place] [address] Future Appointment (Reschedule for Dave) Social History Tobacco Use Types Packs/Day Years Used Date Smoking Tobacco: Former Cigarettes Smokeless Tobacco: Former Chew Alcohol Use Standard Drinks/Week Comments Not Currently 0 (1 standard drink = 0.6 oz pur e alcohol) AUDIT-C Answer Date Recorded Q1: How often do you have a drink containing alc ohol? Never 11/13/2021 Average Number of Drinks Not on file 022 Q3: How often do you have si x or more drinks on one occasion? Never 11/13/2021 Hunger Vital Sign Answer Date Recorded Within the past 12 months, y ou worried that your food would run out before you got the money to buy more. Never true 11/15/19 22 Within the past 12 months, t he food you bought just didn't last and you didn't have money to get more. Never true 11/14/2021 Sex and Gender Information Value Date Recorded Sex Assigned at Not on file Legal Sex Male 8:47 AM CDT Gender Identity Not on file Sexual Orientation Not on file documented as of this encounter Functional Status * Is person deaf or have serious hearing difficulty? Answer Date of Assessment Author No 11/14/2021 6:38 AM SALUDT Allen Chen RN * Is person blind or have serious difficulty seeing? Answer Date of Assessment Author No 11/14/2021 6:38 AM CDT Allen Chen RN * Does person have serious difficulty walking/climbing stairs? Answer Date of Assessment Author Yes 11/14/2021 6:38 AM CDT Allen Chen RN * Does person have difficulty dressing/bathing? Answer Date of Assessment Author Yes 11/14/2021 6:38 AM SALUDT Allen Chen RN * Does person have difficulty doing errands alone? Answer Date of Assessment Author Yes 11/14/2021 6:38 AM SALUDT Randi Chen RN documented as of this encounter Mental Status * Does person have difficulty concentrating/remembering/making decisions? Answer Entry Date Author Yes 11/14/2021 2:52 AM SALUDT Allen Chen RN documented in this encounter Miscellaneous Notes * Telephone Encounter - Shae Garcia - 10/13/2023 11:12 AM CST animal shelter managerSuzette is calling needing to reschedule this pts October [address] Acosta. You can call back and speak to her or her co-workers to reschedule. [phone] NARY WORKER documented in this encounter Plan of Treatment Upcoming Encounters Date Type Department Care Team (Late st Contact Info) Description 02/01/2026 1:45 PM CDT Office Visit [facility] - Ophthalmology [address] [place] [phone] Radha Hollingsworth MD [address] [place] [phone] documented as of this encounter Visit Diagnoses Not on filedocumented in this encounter Care Teams Medical Support Specialist Relationship Specialty Start Date End Date Jose Manuel Nair MD [address] [address] PCP - General Internal Medicine 02/07/21 documented as of this encounter
--- OUTSIDE RECORDS SUMMARY | 2025-07-05 13:54 | XMS_ITS | Clinical Summary ---
Author Organization [employer] [employer] Address [address] [place] [address] Care Team Providers Care Web Designer Developer Name Role Phone Jose Manuel Nair MD Primary Care Provider [phone] Source Comments [facility],non-owned Affiliates and Associated Physician Practices is amultiple site organization consisting of ambulatory clinics and hospital sitesin [place], [place], [place] and [place]. This disclosure is being madepursuant to the Care Everywhere program and may not contain all information available regarding this patient. Last updated 18.[employer] Allergies Active Allergy Reactions Criticality Noted Date Comments Lisinopril Anaphylaxis,Swelling,Unknown High 018 Medications * Be aware that medications may not be up to date on this document. Alwaysverify current medications with the patient. metoprolol tartrate (LOPRESSOR) 25 MG tablet Take 1 (one) tablet by mouth 2 times daily Active hydroCHLOROthia zide (HYDRODIURIL) 50 MG tablet Take 1 (one) tablet by mouth once daily Active atorvastatin (LIPITOR) 40 MG tablet Take 1 (one) tablet by mouth at bedtime Active aspirin (ASPIRIN) 81 MG chew tablet Take 1 (one) tablet by mouth once daily Taking 1/2 tab daily Active DULoxetine (CYMBALTA) 30 MG capsule Take 1 (one) capsule by mouth once daily Active polyethylene glycol 3350 (MIRALAX) 17 g packet Take 17 (seventeen) g by mouth once daily Active trihexyphenidyl (ARTANE) 5 MG tablet Take 1 (one) tablet by mouth 2 times daily after meals Active levothyroxine (SYNTHROID) 25 MCG tablet 1 (one) tablet daily before breakfast 02/29/20 20 Active divalproex ER 24hr (DEPAKOTE ER) 250 MG tablet Take 2 (two) tablets by mouth at bedtime 08/16/19 21 Active apixaban (ELIQUIS) 5 MG tabletIndicatio ns:Atrial flutter, unspecified type (HCC) Take 1 (one) tablet by mouth 2 times daily 180 tablet 4 11/01/19 21 Active risperiDONE (RISPERDAL) 3 MG tablet Take 2 (two) tablets by mouth at bedtime Taking 1 1/2 tabs 01/03/20 21 Active metFORMIN (GLUCOPHAGE) 850 MG tablet Take 1 (one) tablet by mouth 2 times daily with morning and evening meal 12/26/19 21 Active Multiple Vitamin (DAILY-YOBANY MULTIVITAMIN) TABS Take 1 tablet by mouth once daily Active vitamin D3 (CHOLECACIFEROL ) 125 MCG (5000 UT) Take 1 (one) tablet by mouth once daily Active acetaminophen (TYLENOL) 500 MG tablet Take 1 (one) tablet by mouth every 4 hours as needed for Fever or Pain Maximum allowable Acetaminophen amount = 4 Grams (4000 mg) / 24 hours. Active tolterodine ER 24hr (Detrol LA) 4 MG capsule 09/22/19 23 Active Glucagon 1 MG/0.2ML SOLN Active tamsulosin (Flomax) 0.4 MG capsule 11/16/19 24 Active fenofibrate (Tricor) 145 MG tablet 11/16/19 24 Active HumaLOG 100 UNIT/ML vial 14 (fourteen) Units 11/19/19 24 Active senna-docusate (Senokot-S) 8.6-50 MG tablet Take 1 (one) tablet by mouth once daily Active insulin glargine (Lantus/Semglee ) 100 units/ml injection Inject 38 (thirty eight) Units subcutaneously at bedtime Active gemfibrozil (Lopid) 600 MG tablet Take 1 (one) tablet by mouth 2 times daily, before breakfast and supper Active artificial tears 1.4 % ophthalmic solution 1 (one) drop 3 times daily Active Active Problems Problem Noted Date Diagnosed Date Thioridazine adverse reaction, sequela 4 Altered mental status 11/13/2021 Urinary tract infection without hematuria 2021 Cataracts, both eyes 06/14/2021 CHF (congestive heart failure) 06/14/2021 Diabetes mellitus, type 2 06/14/2021 Hyperlipidemia 06/14/2021 Hypertension 06/14/2021 Hypothyroidism 06/14/2021 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 Skew deviation of eye 05/07/2020 Cerebrovascular accident (CVA) 05/01/2020 Cerebrovascular accident (CVA) 03/29/2020 History of ischemic multifocal posterior circula tion stroke 03/10/2020 Right groin wound 12/29/2018 Necrotizing soft tissue infection 11/04/2018 Overview (05/07/2020): Last Assessment & Plan: S/p graft removal, flap with wound vac to right groin. Cx + corynebactereium, MSSA, P. mirabilis. Bcx negative TTE without IE. Continues on vancomycin, cefe and metronidazole. Vitals and labs stable. Groin wound looking to be healing well this morning after wound vac taken off. C/f erythema and induration around drain to the left of the groin wound. -Continue on ceftriaxone, metronidazole and vancomycin--duration likely short, but will have pt f/u with ID prior to stopping given concern around SUZY drain. -Twice weekly CBC, CMP, vanc troughs. -ID will sign off, will update s/o dated 10/29. Will f/u in ID clinic, already has appt scheduled for 11/16. Gangrene of toe of right foot 06/17/2018 Overview (05/07/2020): Added automatically from request for surgery [id number] Last Assessment & Plan: S/p BKA c/b infecton s/p revision to AKA this admission and pathology without residual OM. Wound appears to be healing well without e/o infection. -Wound care per primary team, pressure offloading for optimal wound healing. 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 Resolved Problems Problem Noted Date Diagnosed Date Resolved Date Acquired alexia 05/07/2020 05/07/2020 Encounters Date Type Department Care Team Description 06/07/2025 Travel from Last 3 Months Immunizations Immunization Administration Dates Next Due Covid Pfizer primary monoval ent 12+ yr 0.3mL Purple cap 09/05/2020,08/15/2020 INFLUENZA VACCINE 04/10/2021, 7,06/18/2016,2014 Family History Medical History Relation Name Comments Diabetes; unknown type Other Relation Name Status Comments Other Social History Tobacco Use Types Packs/Day Years Used Date Smoking Tobacco: Former Cigarettes Smokeless Tobacco: Former Chew Tobacco Cessation:Counseling Given: Not Answered Alcohol Use Standard Drinks/Week Comments Not Currently [...] on file Sexual Orientation Not on file Last Filed Vital Signs Vital Sign Reading Time Taken Comments Blood Pressure 120/65 09/29/2024 9:46 AM [facility] Pulse 84 09/29/2024 9:46 AM [facility] Temperature 37.3 C (99.2 F) 11/18/2021 11:08 AM CDT Respiratory Rate 16 09/29/2024 9:46 AM [facility] Oxygen Saturation 96% 07/26/2024 1:09 PM [facility] Inhaled Oxygen Concentration 40% 04/04/2020 4 :36 PM CDT Weight 72.6 kg (160 lb 0.9 oz) 11/14/2021 2:44 A M CDT Height 152.4 cm (5') 11/14/2021 2:44 AM CDT Body Mass Index 31.26 11/14/2021 2:44 AM CDT Plan of Treatment Upcoming Encounters Date Type Department Care Team (Late st Contact Info) Description 02/01/2026 1:45 PM CDT Office Visit [facility] - Ophthalmology [address] [place] [phone] Radha Hollingsworth MD [address] [place] [phone] Health Maintenance Due Date Last Done Comments COLOGUARD (AGES 45-75) - COLON CA SCREENING 1960 COLON MONITORING 1960 COLONOSCOPY - COLON CA SCREENING 1960 CT COLONOGRAPHY - COLON CA SCREENING 1960 Colorectal Cancer Screening 1960 FIT - COLON CA SCREENING 1960 FLEX SIG - COLON CA SCREENING 1960 MEDICARE AWV 12 MONTHS 1960 HIV SCREENING 1975 HEPATITIS C SCREENING 07/14/1978 DTAP/TDAP/TD VACCINES (1 - Tdap) 1979 PNEUMOCOCCAL VACCINE 50+ (1 of 2 - PCV) 1979 Respiratory Syncytial Virus (RSV) Vaccine Pt: or over 60 yrs (1 - Risk 50-74 years 1-dose series) 2010 ZOSTER VACCINE (1 of 2) 2010 DIABETES-FOOT EXAM WITH MONOFILAMENT 06/14/2021 DIABETES-HGB A1C 05/16/2022 11/14/2021, 03/29/2020 DIABETES-SERUM CREATININE 11/18/20222021, 11/17/2021, 11/16/2021, Additional history exists DEPRESSION SCREENING 08/10/2024 DIABETES - URINE PROTEIN SCREENING 08/10/2024 COVID-19 VACCINE ( season) 2025 05/24/2021, 09/05/2020, 08/15/2020 INFLUENZA VACCINE (#1) 2025 , 04/30/2017, 06/18/2016, Additional history exists DIABETES RETINOPATHY SCREENING 01/26/2027 01/26/2025, 11/26/2023, 11/26/2023, Additional history exists HEPATITIS B VACCINE Aged Out No longe r eligible based on patient's age to complete this topic HIB VACCINE Aged Out No longer eligi ble based on patient's age to complete this topic HPV VACCINE Aged Out No longer eligi ble based on patient's age to complete this topic MENINGOCOCCAL (Group B) VACCINE SHARED DECISION-MAKING Aged Out No longer eligible based on patient's age to complete this topic MENINGOCOCCAL GROUPS A/C/Y/W VACCINE Aged Out No longer eligible based on patient's age to complete this topic Medical Devices Implanted Type Area Faculty Criminal Justice Device Identifier Shelf Expiration Date Model / Serial / Lot Sys Crd Mntr Rvl Linq [employer] Ins - [id number] Implanted:Qty: 1 on 04/05/2020 by Luisana Meyers MD at [facility] Loop Recorder Left: Chest [employer] 02/04/2021 LINQ[employer] / [id number] / Procedures Procedure Name Priority Date/Time Associated Diagnosis Comments COMPREHENSIVE METABOLIC PANEL AM Draw 11/18/2021 4:30 AM CDT HEMOGLOBIN A1C Routine 11/14/2021 6:04 AM CDT EYE EXAM 04/19/2021 from Last 3 Months or Most Recently Relevant to Health Maintenance Results * (ABNORMAL) COMPREHENSIVE METABOLIC PANEL (11/18/2021 4:30 AM CDT) [facility] Signature Glucose 205(H) 70 - 105 mg/dL 11/18/2021 5:30 AM [facility] Sodium 139 136 - 145 mmol/L 11/18/2021 5:30 AM [facility] Potassium 3.8 3.5 - 5.1 mmol/L 11/18/2021 5:30 AM [facility] Chloride 104 98 - 107 mmol/L 11/18/2021 5:30 AM [facility] CO2 23 23 - 31 mmol/L 11/18/2021 5:30 AM [facility] Calcium 9.5 8.4 - 10.4 mg/dL 11/18/2021 5:30 AM [facility] Anion Gap 12 8 - 18 mmol/L 11/18/2021 5:30 AM [facility] BUN 17 8.4 - 25.7 mg/dL 11/18/2021 5:30 AM [facility] Creatinine 0.85 0.72 - 1.25 mg/dL 11/18/2021 5:30 AM [facility] Alkaline Phosphatase 79 40 - 150 U/L 11/18/2021 5:30 AM [facility] ALT 8 0 - 61 U/L 11/18/2021 5:30 AM [facility] AST 11 5 - 34 U/L 11/18/2021 5:30 AM [facility] Protein Total 7.3 6.4 - 8.3 gm/dL 11/18/2021 5:30 AM [facility] Albumin 3.7 3.2 - 4.6 gm/dL 11/18/2021 5:30 AM [facility] Bilirubin Total 0.3 0.2 - 1.2 mg/dL 11/18/2021 5:30 AM [facility] eGFR by CKD-EPI >90 >=90 mL/min/1.7 3 m2 11/18/2021 5:30 AM [facility] Blood BLOOD SPECIMEN / Unknown Lab Venipuncture / Unknown 11/18/2021 4:30 AM CDT 11/18/2021 4:46 AM [facility] - 11/18/2021 5:30 AM T eGFR result was calculated using the updated CKD-EPI Creatinine Equations (2020). Prior to go live 2021 the eGFR was calculated using the MDRD calculation. Please note Reference Range change. us Jensen Berg MD LAB - CHEMISTRY ORDERABLES Fi nal Result [facility] [address] [place] [address] * (ABNORMAL) HEMOGLOBIN A1C (11/14/2021 6:04 AM CDT) Hemoglobin A1c 6.7(H) 4.2 - 5.6 % 11/14/2021 7:04 AM CDT [facility] Estimated Average Glucose 146 mg/dL 11/14/2021 7:04 AM CDT [facility] Blood BLOOD SPECIMEN / Unknown Lab Venipuncture / Unknown 11/14/2021 6:04 AM CDT 11/14/2021 6:14 AM CDT Narrative [facility] - 11/14/2021 7:04 AM CDT The following cutoff levels are recommended by [place] [employer]. A1c > 6.5% : considered as diabetes if two separate tests >6.5% or in an appropriate clinical setting. A1c 5.7% - 6.4% : considered as prediabetes (suggest increased risk for diabetes and cardiovascular disease) Control target level: Should be individualized. < 7 for general (non-) , < 8% less stringent goal, < 6.5 more stringent goal. Hemoglobin A1c measurements are used as an aid in the diagnosis of diabetic mellitus, as an aid to identify patients who may be at the risk for developing diabetic mellitus, and for the monitoring long-term blood glucose control in individuals with diabetes mellitus. This test should not replace glucose testing for patients with Type 1 diabetes, pediatric patients, or women. Falsely low HbA1c results may be observed in patients with clinical conditions that shorten erythrocyte life span or decrease mean erythrocyte age such as the presence of unstable hemoglobin variants, elevated hemoglobin F level or other causes of hemolytic anemia . HbA1c may not accurately reflect glycemic control when clinical conditions that affect erythrocyte survival are present. Severe Iron deficiency anemia may yield falsely high results. Hemoglobin A1c assay should not be used to diagnose or monitor diabetes in patients with malignancy, recent blood transfusion, chronic kidney or liver disease. This method may yield falsely low results when hemoglobin (HbF) exceeds 5% in the specimen. Arnold Olivares DO LAB - CHEMISTRY ORDERABLES Final Result [facility] [address] [place] [address] * EYE EXAM (04/19/2021) Anatomical Region Laterality Modality Other 04/19/2021 Narrative 04/19/2021 Ordered by an unspecified provider. us Scanned Document SCANNING ONLY Final Result from Last 3 Months or Most Recently Relevant to Health Maintenance Insurance MEDICARE [facility] MEDICARE MEDICAID - OUT OF [facility] MEDICARE [facility] MEDICARE Member Subscriber Plan / Payer (Ef fective 1983-Present) Name:Jason Murcia Member ID:[id number] Relation to Subscriber:Self Name:JASON MURCIA Subscriber ID:[id number] Payer ID:Not on file Group ID:Not on file Type:Medicare Address: [place] [id number] MEDICAID - OUT OF STATE MEDICARE Member Subscriber Plan / Payer ( fective 1983-Present) Name:Jason Murcia Member ID:[id number] Relation to Subscriber:Self Name:MURCIAGEOVANIJASON Jus Subscriber ID:[id number] Payer ID:Not on file Group ID:Not on file Type:Medicare Address: [place] [id number] MEDICAID - OUT OF STATE MEDICARE Member Subscriber Plan / Payer ( fective 1983-Present) Name:MurciaGeovainJason C Member ID:[id number] Relation to Subscriber:Self Name:MURCIAJASON Subscriber ID:[id number] Payer ID:Not on file Group ID:Not on file Type:Medicare Address: [place] [id number] MEDICAID - OUT OF STATE MEDICARE Member Subscriber Plan / Payer ( fective 1983-Present) Name:MurciaJason Member ID:[id number] Relation to Subscriber:Self Name:MURCIAJASON Subscriber ID:[id number] Payer ID:Not on file Group ID:Not on file Type:Medicare Address: [address] MED[address] - OUT OF STATE MEDICARE MEDICAID - OUT OF STATE MEDICARE MEDICAID - OUT OF STATE MEDICARE Member Subscriber Plan / Payer ( fective 1983-Present) Name:MurciaJason Member ID:[id number] Relation to Subscriber:Self Name:JASON MURCIA Subscriber ID:[id number] Payer ID:Not on file Group ID:Not on file Type:Medicare Address: [place] [id number] MEDICAID - OUT OF STATE MEDICARE MEDICAID - OUT OF STATE MEDICARE MEDICAID - OUT OF STATE Member Subscriber Plan / Payer ( fective 2020-Present) Name:MurciaJason Relation to Subscriber:Self Name:MURCIAJASON Payer ID:Not on file Group ID:Not on file Type:Medicaid Address: [place] [address] MEDICARE MEDICAID - OUT OF STATE MEDICARE MEDICAID - OUT OF STATE MEDICARE Member Subscriber Plan / Payer (Ef fective 1983-Present) Name:Jason Murcia Member ID:[id number] Relation to Subscriber:Self Name:JASON MURCIA Subscriber ID:[id number] Payer ID:Not on file Group ID:Not on file Type:Medicare Address: [place] [id number] MEDICAID - OUT OF [facility] MEDICARE MEDICAID - OUT OF STATE MEDICARE Member Subscriber Plan / Payer ( fective 1983-Present) Name:Jason Murcia Member ID:[id number] Relation to Subscriber:Self Name:JASON MURCIA Subscriber ID:[id number] Payer ID:Not on file Group ID:Not on file Type:Medicare Address: [place] [id number] MEDICAID - OUT OF STATE MEDICARE Member Subscriber Plan / Payer ( fective 1983-Present) Name:Jason Murcia Member ID:[id number] Relation to Subscriber:Self Name:JASON MURCIA Subscriber ID:[id number] Payer ID:Not on file Group ID:Not on file Type:Medicare Address: [place] [id number] MEDICAID - OUT OF STATE MEDICARE MEDICAID - OUT OF STATE MEDICARE Member Subscriber Plan / Payer ( fective 1983-Present) Name:Jason Murcia Member ID:[id number] Relation to Subscriber:Self Name:MURCIAJASON Subscriber ID:[id number] Payer ID:Not on file Group ID:Not on file Type:Medicare Address: [place] [address] MEDICAID - OUT OF STATE MEDICARE MEDICAID - OUT OF STATE MEDICARE MEDICAID - OUT OF STATE MEDICARE Member Subscriber Plan / Payer ( fective 1983-Present) Name:MurciaJason Member ID:[id number] Relation to Subscriber:Self Name:TWINJASON Jus Subscriber ID:[id number] Payer ID:Not on file Group ID:Not on file Type:Medicare Address: [place] [address] MEDICAID - OUT OF STATE MEDICARE Member Subscriber Plan / Payer ( fective 1983-Present) Name:Jason Murcia Member ID:[id number] Relation to Subscriber:Self Name:MURCIAJASON Subscriber ID:[id number] Payer ID:Not on file Group ID:Not on file Type:Medicare Address: [address] MED[address] - OUT OF STATE MEDICARE Member Subscriber Plan / Payer ( fective 1983-Present) Name:MurciaJason Member ID:[id number] Relation to Subscriber:Self Name:JASON MURCIA Jus Subscriber ID:[id number] Payer ID:Not on file Group ID:Not on file Type:Medicare Address: [place] [id number] MEDICAID - OUT OF STATE MEDICARE Member Subscriber Plan / Payer ( fective 1983-Present) Name:MurciaJason Member ID:[id number] Relation to Subscriber:Self Name:MURCIAJASON Subscriber ID:[id number] Payer ID:Not on file Group ID:Not on file Type:Medicare Address: [place] [phone] MEDICAID - OUT OF STATE MEDICARE Member Subscriber Plan / Payer ( fective 1983-Present) Name:MurciaJason Member ID:[id number] Relation to Subscriber:Self Name:MURCIAJASON Subscriber ID:[id number] Payer ID:Not on file Group ID:Not on file Type:Medicare Address: [place] [phone] MEDICAID - OUT OF STATE MEDICARE MEDICAID - OUT OF STATE MEDICARE MEDICAID - OUT OF STATE MEDICARE Member Subscriber Plan / Payer ( fective 1983-Present) Name:MurciaJason herzog Member ID:[id number] Relation to Subscriber:Self Name:JASON MURCIA Subscriber ID:[id number] Payer ID:Not on file Group ID:Not on file Type:Medicare Address: [place] [phone] MEDICAID - OUT OF STATE MEDICARE MEDICAID - OUT OF STATE MEDICARE MEDICAID - OUT OF STATE MEDICARE MEDICAID - OUT OF STATE MEDICARE MEDICAID - OUT OF STATE MEDICARE MEDICAID - OUT OF STATE MEDICARE MEDICAID - OUT OF [facility] MEDICARE Member Subscriber Plan / Payer ( fective 1983-Present) Name:Jason Murcia Member ID:[id number] Relation to Subscriber:Self Name:MURCIAJASON Subscriber ID:[id number] Payer ID:Not on file Group ID:Not on file Type:Medicare Address: [place] [address] MEDICAID - OUT OF STATE MEDICARE MEDICAID - OUT OF STATE MEDICARE MEDICAID - OUT OF STATE MEDICARE MEDICAID - OUT OF STATE MEDICARE MEDICAID - OUT OF STATE MEDICARE MEDICAID - OUT OF STATE MEDICARE Member Subscriber Plan / Payer ( fective 1983-Present) Name:Jason Murcia Member ID:[id number] Relation to Subscriber:Self Name:JASON MURCIA Subscriber ID:[id number] Payer ID:Not on file Group ID:Not on file Type:Medicare Address: [place] [phone] MEDICAID - OUT OF STATE MEDICARE MEDICAID - OUT OF STATE Advance Directives * Full Code (Latest Code Status on File) Date Activated Date Inactivated Comments 11/14/2021 1:38 AM 11/18/2021 6:49 PM * Full Code Date Activated Date Inactivated Comments 05/01/2020 7:49 PM 05/03/2020 2:54 PM * Full Code Date Activated Date Inactivated Comments 03/29/2020 10:17 AM 04/06/2020 5:14 PM Care Teams Web Designer Developer Relationship Specialty Start Date End Date Jose Manuel Nair MD [address] [phone] PCP - General Internal Medicine 02/07/21
--- NOTE | 2025-07-05 14:38 | ED.UPPEXIN ---
HPI - Extremity Injury (Upper) General Chief Complaint: Extremity Injury, Upper Stated Complaint: left wrist fracture Time Seen by Provider: 07/05/25 13:27 History of Present Illness HPI narrative: Patient has been having pain to his left wrist, got an xray 1 week ago that was negative, another 1 today that showed nondisplaced fracture distal radius. Has not reinjured himself recently that he knows of Related Data Home Medications ?Medication ?Instructions ?Recorded ?Confirmed ?Last Taken ?Type Multi Vitamin 1 tab-cap PO DAILY 03/24/20 06/27/20 Unknown History acetaminophen 500 mg tablet 1,000 mg PO Q6H PRN Pain 03/24/20 06/27/20 Unknown History (Acetaminophen Extra Strength) aspirin 81 mg chewable tablet 81 mg PO DAILY 03/24/20 06/27/20 Unknown History atorvastatin 20 mg tablet 40 mg PO DAILY 03/24/20 06/27/20 Unknown History cholecalciferol (vitamin D3) 25 5,000 unit PO DAILY 03/24/20 06/27/20 Unknown History mcg (1,000 unit) capsule divalproex 500 mg tablet,extended 750 mg PO BID 03/24/20 06/27/20 Unknown History release 24 hr duloxetine 30 mg capsule,delayed 30 mg PO DAILY 03/24/20 06/27/20 Unknown History release gabapentin 300 mg capsule 300 mg PO TID 03/24/20 06/27/20 Unknown History insulin glargine 100 unit/mL 40 unit subcut HS 03/24/20 06/27/20 Unknown History subcutaneous solution levothyroxine 25 mcg capsule 25 mcg PO DAILY 03/24/20 06/27/20 Unknown History metformin 500 mg tablet 500 mg PO BID 03/24/20 06/27/20 Unknown History metoprolol tartrate 25 mg tablet 25 mg PO DAILY 03/24/20 06/27/20 Unknown History polyethylene glycol 3350 17 gram 17 g PO DAILY 03/24/20 06/27/20 Unknown History oral powder packet risperidone 4 mg tablet 6 mg PO BID 03/24/20 06/27/20 Unknown History sennosides 8.6 mg-docusate sodium 1 tab-cap PO DAILY 03/24/20 06/27/20 Unknown History 50 mg capsule tiotropium bromide 1.25 1 inh inhalation DAILY 03/24/20 06/27/20 Unknown History mcg/actuation mist for inhalation (Spiriva Respimat) trihexyphenidyl 5 mg tablet 5 mg PO TID 03/24/20 06/27/20 Unknown History hydrochlorothiazide 50 mg tablet 50 mg PO DAILY 06/26/20 06/27/20 Unknown History Senexon-S 8.6 mg PO DAILY 06/27/20 06/27/20 Unknown History Allergies Allergy/AdvReac Type Severity Reaction Status Date / Time lisinopril Allergy Severe Swelling Verified 01/16/22 14:21 Review of Systems Review of Systems: All systems reviewed & are unremarkable except as noted in HPI and below PMFSH Past Medical History Medical History Depression Diabetes mellitus Hyperlipemia Hypertension Seizure Surgical History Surgical History History of left below knee amputation Right above-knee amputee S/P bilateral above knee amputation Family History Family History Father Acute myocardial infarction the age of 32 from [place] Mother Osteoporosis Grandparent Diabetes mellitus Social History Social History Smoking status: Former smoker Alcohol intake: unknown Substance use: unknown Gender identity (if verbalized by the patient): Male Spiritual care concerns: No Exam Narrative: EXAMINATION OF ORGAN SYSTEMS/BODY AREAS: Constitutional: Vital signs per nursing GENERAL:[No acute distress, non-toxic appearing.] HEAD: Normal with no signs of head trauma. EYES: EOMI, conjunctiva normal ENT: Hearing grossly intact LUNGS: Nonlabored breathing. HEART: [Regular rate and rhythm] ABD: [Soft], [nontender to palpation] EXT: Normal range of motion; slight tenderness to left wrist radial side. L BKA, R AKA SKIN: [No rashes or lesions.] NEURO: [Alert. No gross focal sensory or strength deficits.] PSYCH: Normal affect Course Vital Signs Vital signs: Vital Signs Temperature 97.5 F L 07/05/25 13:09 Pulse Rate 75 07/05/25 13:09 Respiratory Rate 17 07/05/25 13:09 Blood Pressure 125/59 L 07/05/25 13:09 Pulse Oximetry 100 07/05/25 13:09 Oxygen Delivery Room Air 07/05/25 13:09 Temperature 97.5 F L 07/05/25 13:09 Pulse Rate 75 07/05/25 13:09 Respiratory Rate 17 07/05/25 13:09 Blood Pressure 125/59 L 07/05/25 13:09 Pulse Oximetry 100 07/05/25 13:09 Oxygen Delivery Room Air 07/05/25 13:09 Procedures Orthopedic Splinting/Casting Injury #1: Splinting/Casting Date: 07/05/25 Splinting/Casting Time: 14:59 Side: left Upper Extremity Injury Location: wrist Upper Extremity Immobilizer: thumb spica Splint: customized in ED Pre-Procedure Neuro Vascular Exam: normal Post-Procedure Neuro Vascular Exam: normal MDM - Extremity Injury (Upper) MDM Narrative Medical decision making narrative: Patient presents here with left distal radius fracture, he is otherwise well-appearing, neurovascularly intact, I do not see any obvious deformity. He refused repeat x-ray here which does seem reasonable, thumb spica splint formed and placed, discussed with orthopedist who agrees with plan and is agreeable to outpatient follow-up and management. Patient agreeable to this also. Return precautions provided Discharge Plan Discharge Clinical Impression: Distal radial fracture Patient Disposition: NH [facility]/Asst Living Condition: Stable Instructions: Wrist Fracture in Adults (ED) Additional Instructions: Please keep your wrist in the splint and follow-up with the orthopedic surgeon. You can always return to the emergency room for any further issues. Patient Language: Romanian Prescriptions: No Action metformin 500 mg Tablet 500 mg PO BID atorvastatin 20 mg Tablet 40 mg PO DAILY insulin glargine 100 unit/mL Solution 40 unit SUBCUT HS divalproex 500 mg Tablet Extended Release 24 Hr 750 mg PO BID aspirin 81 mg Tablet,Chewable 81 mg PO DAILY metoprolol tartrate 25 mg Tablet 25 mg PO DAILY Spiriva Respimat 1.25 mcg/actuation Mist 1 inh INHALATION DAILY Rx Instructions: 1 cap IN daily polyethylene glycol 3350 17 gram Powder In Packet 17 g PO DAILY risperidone 4 mg Tablet 6 mg PO BID trihexyphenidyl 5 mg Tablet 5 mg PO TID gabapentin 300 mg Capsule 300 mg PO TID cholecalciferol (vitamin D3) 25 mcg (1,000 unit) Capsule 5,000 unit PO DAILY duloxetine 30 mg Capsule,Delayed Release(Dr/Ec) 30 mg PO DAILY sennosides-docusate sodium 8.6-50 mg Capsule 1 tab-cap PO DAILY Multi Vitamin 1 tab-cap PO DAILY acetaminophen [Acetaminophen Extra Strength] 500 mg Tablet 1,000 mg PO Q6H PRN (Reason: Pain) levothyroxine 25 mcg Capsule 25 mcg PO DAILY hydrochlorothiazide 50 mg Tablet 50 mg PO DAILY Senexon-S 8.6 mg PO DAILY cephalexin 250 mg capsule 250 mg PO DAILY Qty: 30 2RF cefuroxime axetil 500 mg tablet 500 mg PO BID Qty: 20 0RF Follow-up/Referrals: PHYSICIAN,SEWING MACHINE TESTER [Primary Care Provider, Internal Medicine] Efren Feng MD [Physician, Orthopedics] - 1 Week
--- NOTE | 2025-07-05 14:40 | PCCCNOTE ---
Called to get the pt. a cab ride back to [facility]. Pt. unable to get a ride from anyone he knows and he does not qualify for an ambulance. [employer] called, the will be here in 30-40 minutes, and they are aware they will need to go into the facility to have them come and get the pt. out of the cab.
== END 2025-07-05 14:35 ==
PROVIDERS: Emergency Provider Emergency Medicine
DX: S52.502A Unspecified fracture of the lower end of left radius, initial encounter for closed fracture (principal); I10 Essential (primary) hypertension; E11.9 Type 2 diabetes mellitus without complications; E78.5 Hyperlipidemia, unspecified; F32.A Depression, unspecified; Z87.891 Personal history of nicotine dependence; Z89.611 Acquired absence of right leg above knee; Z89.612 Acquired absence of left leg above knee; Z79.84 Long term (current) use of oral hypoglycemic drugs; Z79.899 Other long term (current) drug therapy; Z79.4 Long term (current) use of insulin; Z79.82 Long term (current) use of aspirin; X58.XXXA Exposure to other specified factors, initial encounter
CPT/HCPCS: 29125; 99283